=== PATIENT | male | born 1945 | race Caucasian/White ===

== ENCOUNTER 2019-09-09 17:08 | Inpatient (IN) | payer MEDICARE ==
[2019-09-09 17:32] LABS: Glucose,Whole Blood 278 mg/dL (75-99)
--- NOTE | 2019-09-09 17:39 | ED ---
General Adult HPI - General Chief complaint: Cardiac Arrest/CPR Stated complaint: cardiac arrest Time Seen by Provider: 09/09/19 17:12 Source: EMS, RN notes reviewed, old records reviewed Mode of arrival: EMS Limitations: altered mental status - History of Present Illness Initial comments: 74-year-old male presenting in cardiac arrest. This was an unwitnessed arrest at home. Patient was last seen well at approximately 1400, at 1410 EMS was called. He had return of spontaneous circulation at a approximately 1420. Currently awaiting EMS run sheets. He had normal sinus rhythm with stable blood pressure during transport for approximately 30 minutes. He did have a second PEA arrest just prior to arrival. Total cardiac arrest time was between 30 and 40 minutes. Patient has history of coronary artery disease status post bypass grafting, history of end-stage renal disease. Most recently receive hemodialysis yesterday. He had been in his usual state of health just prior to his cardiac arrest. No complaints according to his . He had stepped outside to feed the birds. - Related Data Allergies Allergy/AdvReac Type Severity Reaction Status Date / Time Unable to Assess Allergy Verified 09/09/19 17:38 Review of Systems ROS Statement: Those systems with pertinent positive or pertinent negative responses have been documented in the HPI. ROS Other: All systems not noted in ROS Statement are negative. Past Medical History Past Medical History: Unable to Obtain, Dialysis Past Surgical History: Unable to Obtain Smoking Status: Unknown if ever smoked Past Alcohol Use History: Unable to Obtain Past Drug Use History: Unable to Obtain General Exam Limitations: altered mental status General appearance: obtunded Head exam: Present: atraumatic, normocephalic Eye exam: Absent: PERRL (Pupils are 5 mm bilaterally, minimally reactive, no corneal reflex.) Neck exam: Present: normal inspection. Absent: tenderness (Sluggish bilaterally) Respiratory exam: Present: respiratory distress, rales, other (With the vent., Patient has bilateral breath sounds) Cardiovascular Exam: Present: regular rate, irregular rhythm GI/Abdominal exam: Present: soft, distended. Absent: tenderness, guarding Extremities exam: Present: pedal edema Skin exam: Present: warm, dry, intact. Absent: cyanosis, diaphoretic Course Vital Signs 09/09/19 17:08 Pulse Rate 76 Respiratory 18 Rate Blood Pressure 130/70 O2 Sat by Pulse 97 Oximetry EKG Findings - EKG Comments: EKG Findings:: EKG: Atrial fibrillation, bifascicular block, wide-complex rate of 65, QRS duration 156, QTC 497, no ST segment elevation. Medical Decision Making - Medical Decision Making 74-year-old male in PEA arrest, resuscitated by EMS, intubated by EMS. Patient has pulses upon arrival with stable blood pressure. He has bilateral breath sounds with BVM. He is placed on the ventilator. Patient evaluated by Dr. Washington in the emergency department and was able to place a central line in this patient. Chest x-ray shows satisfactory placement of both OG tube, central line, and endotracheal tube. Laboratory testing reveals white blood cell count of 20, hemoglobin is 11.3, there is no baseline laboratory studies for comparison. He has evidence of renal failure and is currently on hemodialysis. His potassium is only minimally elevated at 5.3. He does require some sedation in the emergency department and is placed on proper fall. Armendariz catheter was placed as I am uncertain if this patient still makes urine. Patient will be continued on the ventilator, admitted to the ICU. Cardiopulmonary arrest, PEA arrest, with return of spontaneous circulation, in this patient with multiple medical problems coronary artery disease, end-stage renal disease on hemodialysis. - Lab Data Result diagrams: 09/09/19 17:36 09/09/19 17:36 Lab Results 09/09/19 09/09/19 09/09/19 Range/Units 17:28 17:36 17:36 WBC 20.0 H (3.8-10.6) k/uL RBC 3.26 L (4.30-5.90) m/uL Hgb 11.3 L (13.0-17.5) gm/dL Hct 35.1 L (39.0-53.0) % MCV 107.5 H (80.0-100.0) fL MCH 34.6 (25.0-35.0) pg MCHC 32.2 (31.0-37.0) g/dL RDW 14.2 (11.5-15.5) % Plt Count 183 (150-450) k/uL Neutrophils % 72 % Lymphocytes % 21 % Monocytes % 4 % Eosinophils % 1 % Basophils % 0 % Neutrophils # 14.4 H (1.3-7.7) k/uL Lymphocytes # 4.2 (1.0-4.8) k/uL Monocytes # 0.7 (0-1.0) k/uL Eosinophils # 0.2 (0-0.7) k/uL Basophils # 0.1 (0-0.2) k/uL Macrocytosis Moderate PT 10.9 (9.0-12.0) sec INR 1.1 (<1.2) APTT 22.4 (22.0-30.0) sec Sample Site ABG pH (7.35-7.45) ABG pCO2 (35-45) mmHg ABG pO2 (83-108) mmHg ABG HCO3 (21-25) mmol/L ABG Total CO2 (19-24) mmol/L ABG O2 Saturation (94-97) % ABG Base Excess mmol/L Ken Test FiO2 % Sodium (137-145) mmol/L Potassium (3.5-5.1) mmol/L Chloride (98-107) mmol/L Carbon Dioxide (22-30) mmol/L Anion Gap mmol/L BUN (9-20) mg/dL Creatinine (0.66-1.25) mg/dL Est GFR (CKD-EPI)AfAm (>60 ml/min/1.73 sqM) Est GFR (CKD-EPI)NonAf (>60 ml/min/1.73 sqM) Glucose (74-99) mg/dL POC Glucose (mg/dL) 278 H (75-99) mg/dL POC Glu Wire Walker ID Vivian Dejesus Calcium (8.4-10.2) mg/dL Magnesium (1.6-2.3) mg/dL Total Bilirubin (0.2-1.3) mg/dL AST (17-59) U/L ALT (4-49) U/L Alkaline Phosphatase (38-126) U/L Troponin I (0.000-0.034) ng/mL NT-Pro-B Natriuret Pep pg/mL Total Protein (6.3-8.2) g/dL Albumin (3.5-5.0) g/dL 09/09/19 09/09/19 09/09/19 Range/Units 17:36 17:36 17:36 WBC (3.8-10.6) k/uL RBC (4.30-5.90) m/uL Hgb (13.0-17.5) gm/dL Hct (39.0-53.0) % MCV (80.0-100.0) fL MCH (25.0-35.0) pg MCHC (31.0-37.0) g/dL RDW (11.5-15.5) % Plt Count (150-450) k/uL Neutrophils % % Lymphocytes % % Monocytes % % Eosinophils % % Basophils % % Neutrophils # (1.3-7.7) k/uL Lymphocytes # (1.0-4.8) k/uL Monocytes # (0-1.0) k/uL Eosinophils # (0-0.7) k/uL Basophils # (0-0.2) k/uL Macrocytosis PT (9.0-12.0) sec INR (<1.2) APTT (22.0-30.0) sec Sample Site ABG pH (7.35-7.45) ABG pCO2 (35-45) mmHg ABG pO2 (83-108) mmHg ABG HCO3 (21-25) mmol/L ABG Total CO2 (19-24) mmol/L ABG O2 Saturation (94-97) % ABG Base Excess mmol/L Ken Test FiO2 % Sodium 136 L (137-145) mmol/L Potassium 5.3 H (3.5-5.1) mmol/L Chloride 98 (98-107) mmol/L Carbon Dioxide 18 L (22-30) mmol/L Anion Gap 20 mmol/L BUN 43 H (9-20) mg/dL Creatinine 5.04 H (0.66-1.25) mg/dL Est GFR (CKD-EPI)AfAm 12 (>60 ml/min/1.73 sqM) Est GFR (CKD-EPI)NonAf 11 (>60 ml/min/1.73 sqM) Glucose 297 H (74-99) mg/dL POC Glucose (mg/dL) (75-99) mg/dL POC Glu Wire Walker ID Calcium 8.5 (8.4-10.2) mg/dL Magnesium 3.0 H (1.6-2.3) mg/dL Total Bilirubin 0.4 (0.2-1.3) mg/dL AST 279 H (17-59) U/L ALT 235 H (4-49) U/L Alkaline Phosphatase 150 H (38-126) U/L Troponin I 0.075 H* (0.000-0.034) ng/mL NT-Pro-B Natriuret Pep 8830 pg/mL Total Protein 5.8 L (6.3-8.2) g/dL Albumin 3.4 L (3.5-5.0) g/dL 09/09/19 Range/Units 17:56 WBC (3.8-10.6) k/uL RBC (4.30-5.90) m/uL Hgb (13.0-17.5) gm/dL Hct (39.0-53.0) % MCV (80.0-100.0) fL MCH (25.0-35.0) pg MCHC (31.0-37.0) g/dL RDW (11.5-15.5) % Plt Count (150-450) k/uL Neutrophils % % Lymphocytes % % Monocytes % % Eosinophils % % Basophils % % Neutrophils # (1.3-7.7) k/uL Lymphocytes # (1.0-4.8) k/uL Monocytes # (0-1.0) k/uL Eosinophils # (0-0.7) k/uL Basophils # (0-0.2) k/uL Macrocytosis PT (9.0-12.0) sec INR (<1.2) APTT (22.0-30.0) sec Sample Site rfem ABG pH 7.29 L (7.35-7.45) ABG pCO2 41 (35-45) mmHg ABG pO2 347 H (83-108) mmHg ABG HCO3 19 L (21-25) mmol/L ABG Total CO2 21 (19-24) mmol/L ABG O2 Saturation 100.0 H (94-97) % ABG Base Excess -7.4 mmol/L Ken Test Yes FiO2 100 % Sodium (137-145) mmol/L Potassium (3.5-5.1) mmol/L Chloride (98-107) mmol/L Carbon Dioxide (22-30) mmol/L Anion Gap mmol/L BUN (9-20) mg/dL Creatinine (0.66-1.25) mg/dL Est GFR (CKD-EPI)AfAm (>60 ml/min/1.73 sqM) Est GFR (CKD-EPI)NonAf (>60 ml/min/1.73 sqM) Glucose (74-99) mg/dL POC Glucose (mg/dL) (75-99) mg/dL POC Glu Wire Walker ID Calcium (8.4-10.2) mg/dL Magnesium (1.6-2.3) mg/dL Total Bilirubin (0.2-1.3) mg/dL AST (17-59) U/L ALT (4-49) U/L Alkaline Phosphatase (38-126) U/L Troponin I (0.000-0.034) ng/mL NT-Pro-B Natriuret Pep pg/mL Total Protein (6.3-8.2) g/dL Albumin (3.5-5.0) g/dL Critical Care Time Critical Care Time: Yes Total Critical Care Time: 35 Disposition Clinical Impression: Cardiac arrest, Signs of return of spontaneous circulation Disposition: ADMITTED IP TO THIS [facility] Condition: Critical Is patient prescribed a controlled substance at d/c from ED?: No Referrals: Mohsen Pearson MD [Primary Care Provider] - 1-2 days Decision to Admit Reason: Admit from EC Decision Date: 09/09/19 Decision Time: 18:16
[2019-09-09] MEDS ORDERED: NALOXONE 0.4 MG/ML 1 ML VIAL IV PRN (17:40)
[2019-09-09 17:45] LABS: Basophils # (A) 0.1 k/uL (0-0.2); Basophils % (A) 0 %; Eosinophils # (A) 0.2 k/uL (0-0.7); Eosinophils % (A) 1 %; HCT 35.1 % (39.0-53.0); HGB 11.3 gm/dL (13.0-17.5); Lymphocytes # (A) 4.2 k/uL (1.0-4.8); Lymphocytes % (A) 21 %; MCH 34.6 pg (25.0-35.0); MCHC 32.2 g/dL (31.0-37.0); MCV 107.5 fL (80.0-100.0); Macrocytosis Moderate; Mean Platelet Volume 8.1; Monocytes # (A) 0.7 k/uL (0-1.0); Monocytes % (A) 4 %; Neutrophils # (A) 14.4 k/uL (1.3-7.7); Neutrophils % (A) 72 %; Platelet Count 183 k/uL (150-450); RBC 3.26 m/uL (4.30-5.90); RDW 14.2 % (11.5-15.5)
[2019-09-09 17:53] LABS: INR 1.1 (<1.2); Partial Thromboplastin Time 22.4 sec (22.0-30.0); Prothrombin Time 10.9 sec (9.0-12.0)
[2019-09-09 18:07] LABS: Albumin 3.4 g/dL (3.5-5.0); Calcium 8.5 mg/dL (8.4-10.2); Potassium 5.3 mmol/L (3.5-5.1); Total Bilirubin 0.4 mg/dL (0.2-1.3); Total Protein 5.8 g/dL (6.3-8.2)
[2019-09-09 18:13] LABS: ABG Base Excess -7.4 mmol/L; ABG HCO3 19 mmol/L (21-25); ABG PCO2 41 mmHg (35-45); ABG PH 7.29 (7.35-7.45); ABG PO2 347 mmHg (83-108); ABG TCO2 21 mmol/L (19-24); Allen Test Performed? Yes
--- NOTE | 2019-09-09 18:15 | XR ---
EXAMINATION TYPE: XR chest 1V portable DATE OF EXAM: 09/09/2019 COMPARISON: None HISTORY: Cardiac arrest TECHNIQUE: FINDINGS: Endotracheal tube is 4.5 cm from the maikel. There is nasogastric tube looped in the stomac h. There is no gross heart failure. There are sternal wires. There is right central venous catheter w ith the tip in the right atrium. No pneumothorax. There are chest leads. IMPRESSION: No active cardiopulmonary disease.
[2019-09-09] MEDS ORDERED: PROPOFOL 1,000 MG in EMPTY BAG 1 BAG IV ONE (18:18)
[2019-09-09] MEDS ORDERED: ASPIRIN 300 MG SUPP RECTAL STA (18:24)
[2019-09-09] MEDS ORDERED: LORazepam 2 MG/ML INJ ONE (18:31)
[2019-09-09] MEDS ORDERED: LORazepam 2 MG/ML INJ IV STA (18:32)
--- NOTE | 2019-09-09 18:48 | P.CNPUL ---
History of Present Illness Consult date: 09/09/19 Chief complaint: Cardiac arrests History of present illness: 74-year-old male patient who receives most of his care through [facility]. The patient is not known to us and he has never been hospitalized in our hospital. The patient was last seen by his this afternoon at around 1400 and he was also getting the birds for around 10-15 minutes when she noticed that he he was not around. She went on then she found the patient unresponsive. She called EMS. The initial downtime was estimated to be around 15 minutes when EMS came in and CPR was initiated. The patient was found to be deep. Pulse was resumed and the patient was intubated. The patient maintained his pulse for around 30 minutes. On route, he lost pulses for another 10 minutes and ultimately see arrived to our emergency department while receiving the Elton as. He was down by additional 2 minutes. Now emergency where pulses were recovered and the Eder was removed. The patient currently is completely unresponsive. He is intubated on a mechanical ventilator. He is maintaining his blood pressure without any pressors. He is on assist control mode at the rate of 18 with a tidal volume of 500 and FiO2 of 50% with a PEEP of 5. The blood gas showed a pH of 7.28 with a pCO2 of 40 and pO2 of 147. This was done approximately an hour after it without JVD. The triple-lumen catheter was established. He remains on Lasix, the patient is in renal failure however the patient is on dialysis. ProBNP level is elevated. Chest x-ray shows cardiomegaly without any acute abnormalities. The triple-lumen catheter is in a good location. ET tube is in a location. Within 45 minutes to an hour, the patient started biting on the tissue. He was started on propofol in the emergency department. The patient had a white cell count of 20.0. Hemoglobin was 11.3. The sodium is 136 and a potassium level of 5.3. Serum bicarb is 18. BUN is 43 with a creatinine of 5.04. Glucose for now is to do 97. AST is 279 ALT is 235 troponin is a 0.075 with a proBNP level of 8830. EKG shows atrial fibrillation with occasional PVCs. His rate is currently in the mid 70s. His most recent blood pressure is 105/67. Upon inspection, the patient has a access in his left upper extremity. I wasn't able to obtain any falls or any heave or thrill in the left upper extremity. I elected discussion with the family. Based on the reported history, the patient has multiple medical problems and comorbidities. He is known to have coronary artery disease and he is undergone a previous bypass surgery. This was done in an outside hospital. He is known to have coronary artery disease. He also is diabetic. He developed chronic kidney disease and approximately 8 mo nths ago he was started on hemodialysis through an AV fistula in his left upper extremity. He gets dialyzed 3 times a week MWF. He also has COPD, hypertension, hyperlipidemia and history of severe cardiomyopathy. His underlying ejection fraction is not known. He does not have a defibrillator or pacemaker in place. Armendariz catheter is in place. No urine output for now. The medication is unknown. The family does not have a medication list brought with them. Review of Systems ROS unobtainable: due to endotracheal tube Past Medical History Past Medical History: Unable to Obtain, Coronary Artery Disease (CAD) ( coronary artery bypass surgery), Heart Failure, COPD, Diabetes Mellitus, Dialysis (since 11/2018), Hyperlipidemia, Hypertension, Myocardial Infarction ([place]) (2004) Past Surgical History: Unable to Obtain, Coronary Bypass/CABG Additional Past Surgical History / Comment(s): AV fistula in the LUE, lower spine surgery Smoking Status: Unknown if ever smoked Past Alcohol Use History: Unable to Obtain Past Drug Use History: Unable to Obtain Medications and Allergies Allergies Allergy/AdvReac Type Severity Reaction Status Date / Time Unable to Assess Allergy Verified 09/09/19 17:38 Physical Exam Vitals: Vital Signs Pulse Resp BP Pulse Ox 09/09/19 17:08 76 18 130/70 97 Intake and Output 09/09/19 09/09/19 09/09/19 06:59 14:59 22:59 Other: Weight 113.398 kg Unresponsive, calm and comfortable intubated on a mechanical ventilator. Orogastric and orotracheal tube are both in place. Head exam was generally normal. There was no scleral icterus or corneal arcus. Mucous membranes were moist. Neck was supple and without jugular venous distension, thyromegaly, or carotid bruits. Carotids were easily palpable bilaterally. There was no adenopathy. Lungs sounds are diminished and the patient has scattered expiratory wheezes heard bilaterally. Scattered rhonchi also present. Heart sounds are irregular, positive S1-S2 and no significant murmurs could be appreciated. The patient has a sternotomy scar over the anterior chest area. Abdominal exam revealed normal bowel sounds. The abdomen was soft, non-tender, and without masses, organomegaly, or appreciable enlargement of the abdominal aorta. Extremities the patient has a nonfunctioning dialysis access in left upper extremity. No pulsatile be appreciated. Pulses in the lower extremities are also diminished by mouth femoral pulses are well palpated. No cyanosis. No clubbing. Neurologically, the patient has acute was regular and equal and symmetrical around 4-5 mm. Sluggish reactive to light. No nystagmus. No clonus. No facial asymmetry. Unresponsive to deep painful stimulation. For now he is breathing above the vent. He does have a very mild gag reflex when the tube was manipulated. No Babinski. No clonus. Motor function cannot be assessed. Has a function cannot be assessed. Examination of the skin revealed no evidence of significant rashes, suspicious appearing nevi or other concerning lesions. Results - Laboratory Findings CBC and BMP: 09/09/19 17:36 PT/INR, D-dimer PT 10.9 sec (9.0-12.0) 09/09/19 17:36 INR 1.1 (<1.2) 09/09/19 17:36 Abnormal lab findings: Abnormal Labs 09/09/19 09/09/19 17:28 17:36 WBC 20.0 H RBC 3.26 L Hgb 11.3 L Hct 35.1 L MCV 107.5 H Neutrophils # 14.4 H POC Glucose (mg/dL) 278 H - Diagnostic Findings Chest x-ray: image reviewed Assessment and Plan Plan: 1 cardiac arrest with prolonged downtime estimated to be around 30 minutes or more. The patient was a PEA. He was resuscitated. He received CPR. I have not had any access to the EMS run sheet. Upon arrival to the emergency department, the patient received a brief CPR and resuscitation and subsequently there was return of spontaneous circulation. Currently intubated on a mechanical ventilator. Unresponsive. Hemodynamically he is maintaining his own blood pressure without the use of any pressors. 2 acute hypoxic respiratory failure secondary to above currently intubated on a mechanical ventilator 3 unresponsive with a possibility of hypoxic encephalopathy post cardiac arrest 4 atrial fibrillation with a controlled rate 5 known history of coronary artery disease with previous bypass surgery 6 systolic heart failure with a unknown ejection fraction. 7 End stage renal disease on hemodialysis a times a week MWF. The axis in the left upper extremity is no function of this point in time. 8 COPD 9 diabetes mellitus 10 obesity with a BMI of 38 11 hypertension 12 hyperlipidemia 13 leukocytosis likely reactive 14 abnormal liver function tests Plan Keep the patient sedated for now. During his treatment in the emergency department the patient started getting more a sick visit a mechanical ventilator and biting on this unit. For that reason he was started on propofol and the dose being titrated and currently is up to 40 g. Monitor hemodynamics and the triple-lumen catheter was inserted Continue vent support and the necessity ventilator changes were done. Due to asynchrony, we'll put the patient on IV sick less motivated today rate of 24 with a tidal volume of 500 with an FiO2 of 50% and a PEEP of 5. Start the patient on DuoNeb nebulized treatments around the clock Start the patient IV fluids normal saline at rate of 50 mL an hour Monitor cardiac enzymes with troponin every 8 hours 3 Echocardiogram to assess LV function 12-lead EKG Obtain a CAT scan of the brain no contrast, if negative start the patient IV heparin Cardiology consultation Nephrology consultation Neurology consultation EEG in a.m. Insulin sliding scale coverage IV Protonix Prognosis poor. There are signs of hypoxic encephalopathy for now. We are asked the patient's family to bring in the medication list. Would also try to get records from his other hospitals maintaining his health in general Prognosis is poor baseline above-mentioned comorbidities. This is a critically care evaluation. The patient was transferred to the intensive care unit. Interviewed the family. Evaluation was done and the nurse department. Triple- lumen catheter was also inserted in the ED. Time with Patient: Greater than 30
[2019-09-09] MEDS: SODIUM CHLORIDE 0.9% 1,000 ML IV SCH (19:35)
--- NOTE | 2019-09-09 19:49 | CT ---
EXAMINATION TYPE: CT brain wo con DATE OF EXAM: 09/09/2019 COMPARISON: None HISTORY: Unresponsive CT DLP: 1172.4 mGycm Automated exposure control for dose reduction was used. Ventricles have normal size. There is no mass effect nor midline shift. There is no sign of intracran ial hemorrhage. The calvarium is intact. IMPRESSION: Negative CT scan of the brain.
[2019-09-09 21:03] LABS: Glucose,Whole Blood 221 mg/dL (75-99)
[2019-09-09] MEDS: INSULIN ASPART (NovoLOG) 100 UNIT/ML VIAL SQ SCH (21:28)
[2019-09-09] MEDS: IPRATROPIUM-ALBUTEROL 3 ML NEB INHALATION SCH ×2 (21:37→23:56)
[2019-09-09] MEDS: PANTOPRAZOLE 40 MG/10 ML VIAL IVP SCH (21:50)
--- NOTE | 2019-09-09 22:28 | P.HPIM ---
History of Present Illness H&P Date: 09/09/19 The patient is a 74-year-old male with a PMH of coronary artery disease status post CABG, CHF, ESRD on hemodialysis, type 2 diabetes mellitus, hypertension, and hyperlipidemia who was brought into the ED via EMS for cardiac arrest. History obtained from chart. Reportedly, the patient was last seen by his , feeding birds at around 2 PM. She has only found him at around 2:10 PM, unresponsive and on the ground. She activated EMS, who arrived on the scene and initiated CPR at around 2:15 PM with subsequent ROSC around 2:20 pm. The patient was intubated by EMS. The patient then had normal pulse for ~30 minutes though en route to the ED, suffered another cardiac arrest with PEA, with subsequent ROSC with CPR. Total down-time reported as 30-40 minutes. The patient underwent an extensive evaluation in the emergency room, EKG showing A. fib with bifascicular block at 65 bpm. Chest x-ray was unremarkable. Brain CT also was unremarkable. Laboratory evaluation revealed a WBC count of 20, hemoglobin 11.3, troponin 0.075, BNP 8830, AST 279, AST 235, alkaline phosphatase 150, sodium 136, potassium 5.3, BUN 43, creatinine 5.4. The patient was given aspirin and was started on heparin infusion. He was also given IV Zosyn empirically. He is admitted to the MICU for further management. Review of Systems ROS unobtainable: due to endotracheal tube, due to mental status Past Medical History Past Medical History: Unable to Obtain, Coronary Artery Disease (CAD) ( coronary artery bypass surgery), Heart Failure, COPD, Diabetes Mellitus, Dialysis (since 11/2018), Hyperlipidemia, Hypertension, Myocardial Infarction ([place]) (2004) Past Surgical History: Unable to Obtain, Coronary Bypass/CABG Additional Past Surgical History / Comment(s): AV fistula in the LUE, lower spine surgery Smoking Status: Unknown if ever smoked Past Alcohol Use History: Unable to Obtain Past Drug Use History: Unable to Obtain Medications and Allergies Allergies Allergy/AdvReac Type Severity Reaction Status Date / Time Unable to Assess Allergy Verified 09/09/19 17:38 Physical Exam Vitals: Vital Signs Temp Pulse Resp BP Pulse Ox 09/09/19 21:50 64 09/09/19 21:40 64 09/09/19 21:02 69 24 122/95 98 09/09/19 19:45 67 18 102/54 98 09/09/19 19:35 93.4 F L 63 20 106/60 99 09/09/19 19:25 68 18 100/59 100 09/09/19 19:20 68 18 99/55 100 09/09/19 19:17 68 20 99/55 100 09/09/19 19:10 67 18 69/47 100 09/09/19 18:55 73 20 89/48 100 09/09/19 18:50 73 20 83/54 100 09/09/19 18:45 73 18 92/57 100 09/09/19 18:35 74 20 116/65 100 09/09/19 18:20 75 20 110/64 100 09/09/19 18:05 83 20 99/60 100 09/09/19 17:08 76 18 130/70 97 Intake and Output 09/09/19 09/09/19 09/09/19 06:59 14:59 22:59 Intake Total 14.175 Balance 14.175 Intake: Intake, IV Titration 14.175 Amount Propofol 1,000 mg In 14.175 Empty Bag 1 bag @ Titrate IV .Q0M ONE Rx#: [id number] Other: Weight 113.398 kg General: Intubated male, no distress, appears at stated age, obese Derm: no unusual rashes/lesions no unusual ecchymoses, warm, dry Head: atraumatic, normocephalic, symmetric Eyes: EOMI, anicteric sclera, cataracts chiquita, pupils equal round reactive to light ENT: Nose and ears atraumatic, ET tube in place, NG tube in place Neck: No thyromegaly, no cervical lymphadenopathy, trachea midline, supple Mouth: no lip lesion, mucus membranes moist Cardiovascular: S1S2 reg, no murmur, positive posterior tibial pulse bilateral, no edema, capillary refill less than 2 seconds Lungs: No wheezing, rales, or rhonchi appreciated bilaterally Abdominal: soft, nondistended Ext: no gross muscle atrophy, no contractures, Neuro: Unresponsive to noxious stimuli Results CBC & Chem 7: 09/09/19 17:36 09/09/19 17:36 Labs: Abnormal Lab Results - Last 24 Hours (Table) 09/09/19 09/09/19 09/09/19 Range/Units 17:28 17:36 17:36 WBC 20.0 H (3.8-10.6) k/uL RBC 3.26 L (4.30-5.90) m/uL Hgb 11.3 L (13.0-17.5) gm/dL Hct 35.1 L (39.0-53.0) % MCV 107.5 H (80.0-100.0) fL Neutrophils # 14.4 H (1.3-7.7) k/uL ABG pH (7.35-7.45) ABG pO2 (83-108) mmHg ABG HCO3 (21-25) mmol/L ABG O2 Saturation (94-97) % Sodium 136 L (137-145) mmol/L Potassium 5.3 H (3.5-5.1) mmol/L Carbon Dioxide 18 L (22-30) mmol/L BUN 43 H (9-20) mg/dL Creatinine 5.04 H (0.66-1.25) mg/dL Glucose 297 H (74-99) mg/dL POC Glucose (mg/dL) 278 H (75-99) mg/dL Magnesium 3.0 H (1.6-2.3) mg/dL AST 279 H (17-59) U/L ALT 235 H (4-49) U/L Alkaline Phosphatase 150 H (38-126) U/L Troponin I (0.000-0.034) ng/mL Total Protein 5.8 L (6.3-8.2) g/dL Albumin 3.4 L (3.5-5.0) g/dL 09/09/19 09/09/19 09/09/19 Range/Units 17:36 17:56 21:03 WBC (3.8-10.6) k/uL RBC (4.30-5.90) m/uL Hgb (13.0-17.5) gm/dL Hct (39.0-53.0) % MCV (80.0-100.0) fL Neutrophils # (1.3-7.7) k/uL ABG pH 7.29 L (7.35-7.45) ABG pO2 347 H (83-108) mmHg ABG HCO3 19 L (21-25) mmol/L ABG O2 Saturation 100.0 H (94-97) % Sodium (137-145) mmol/L Potassium (3.5-5.1) mmol/L Carbon Dioxide (22-30) mmol/L BUN (9-20) mg/dL Creatinine (0.66-1.25) mg/dL Glucose (74-99) mg/dL POC Glucose (mg/dL) 221 H (75-99) mg/dL Magnesium (1.6-2.3) mg/dL AST (17-59) U/L ALT (4-49) U/L Alkaline Phosphatase (38-126) U/L Troponin I 0.075 H* (0.000-0.034) ng/mL Total Protein (6.3-8.2) g/dL Albumin (3.5-5.0) g/dL Assessment and Plan Plan: Cardiac arrest in setting of history of CAD status post CABG with CHF -Continue with postarrest protocol with hypothermia -Trend troponin -Cardiac monitoring -Echocardiogram -Cardiology consult -Continue with heparin and aspirin -Continue with mechanical ventilation with the ventilator bundle -Obtain lactic acid Hyperkalemia -Pt w/ ESRD -1 gm Ca-gluconate ordered -Monitor BMP Leukocytosis -No signs of active infection at this time -Monitor for now -Likely due to acute stress ESRD on hemodialysis -Nephrology consulted for resumption of dialysis Transaminitis -Likely due to acute liver injury from hypoperfusion -Monitor LFTs
[2019-09-09] MEDS ORDERED: CALCIUM GLUCONATE 1 GM in SODIUM CHLORIDE 0.9% 100 ML IVPB ONE (22:35)
[2019-09-09] MEDS: PROPOFOL 1,000 MG in EMPTY BAG 1 BAG IV SCH (22:44)
[2019-09-09] MEDS: PIPERACILLIN-TAZOBACTAM 3.375 GM in SODIUM CHLORIDE 0.9% 100 ML IVPB SCH (22:45)
[2019-09-09] MEDS: HEPARIN SOD,PORK IN 0.45% NACL 25,000 UNIT in 0.45% NACL 1 250ML.BAG IV SCH (22:50)
[2019-09-10] MEDS: INSULIN ASPART (NovoLOG) 100 UNIT/ML VIAL SQ SCH ×2 (00:21→03:50)
[2019-09-10] MEDS: PROPOFOL 1,000 MG in EMPTY BAG 1 BAG IV SCH ×2 (01:05→06:47)
[2019-09-10] MEDS ORDERED: SODIUM CHLORIDE 0.9% 1,000 ML IV ONE ×2 (03:09→03:12)
[2019-09-10] MEDS ORDERED: VANCOMYCIN IV PER PHARMACY 1 EACH MISC MISCELLANE PRN (03:13)
[2019-09-10] MEDS: IPRATROPIUM-ALBUTEROL 3 ML NEB INHALATION SCH ×6 (03:24→22:58)
[2019-09-10 03:52] LABS: Glucose,Whole Blood 288 mg/dL (75-99)
[2019-09-10] MEDS ORDERED: VANCOMYCIN 1,750 MG in SODIUM CHLORIDE 0.9% 500 ML 500 ML IVPB ONE (04:00)
[2019-09-10 05:04] LABS: HCT 35.5 % (39.0-53.0); HGB 11.6 gm/dL (13.0-17.5); MCH 34.1 pg (25.0-35.0); MCHC 32.8 g/dL (31.0-37.0); MCV 103.9 fL (80.0-100.0); Macrocytosis Slight; Mean Platelet Volume 8.2; Platelet Count 198 k/uL (150-450); RBC 3.41 m/uL (4.30-5.90); RDW 14.2 % (11.5-15.5); WBC 26.8 k/uL (3.8-10.6)
[2019-09-10 05:13] LABS: ABG Base Excess -7.9 mmol/L; ABG HCO3 17 mmol/L (21-25); ABG Oxygen Saturation 99.8 % (94-97); ABG PCO2 27 mmHg (35-45); ABG PO2 143 mmHg (83-108); ABG TCO2 18 mmol/L (19-24); Allen Test Performed? Yes
[2019-09-10 05:46] LABS: Calcium 8.7 mg/dL (8.4-10.2); Potassium 5.7 mmol/L (3.5-5.1)
--- NOTE | 2019-09-10 07:40 | XR ---
EXAMINATION TYPE: XR chest 1V portable DATE OF EXAM: 09/10/2019 CLINICAL HISTORY: Difficulty breathing progress study. Cardiac arrest. TECHNIQUE: Single AP portable semiupright view of the chest is obtained. COMPARISON: Chest x-ray from one day earlier . FINDINGS: Stable endotracheal, orogastric tube, and right subclavian central venous catheter. [place] ing sternal wires and mediastinal clips redemonstrated. Persistent cardiomegaly. Improved inspiration on current study. Suspect persistent small right pleura l effusion and patchy right medial basilar acute atelectasis and/or infiltrate. Osseous structures ar e intact. There are overlying EKG leads redemonstrated. IMPRESSION: Improved inspiration and left hilar opacity. Persistent cardiomegaly with small right ple ural effusion and patchy right medial basilar acute atelectasis and/or infiltrate.
[2019-09-10 08:21] LABS: Glucose,Whole Blood 422 mg/dL (75-99)
--- NOTE | 2019-09-10 08:53 | P.PN ---
Subjective Progress Note Date: 09/10/19 74-year-old male patient who receives most of his care through [facility]. The patient is not known to us and he has never been hospitalized in our hospital. The patient was last seen by his this afternoon at around 1400 and he was also getting the birds for around 10-15 minutes when she noticed that he he was not around. She went on then she found the patient unresponsive. She called EMS. The initial downtime was estimated to be around 15 minutes when EMS came in and CPR was initiated. The patient was found to be deep. Pulse was resumed and the patient was intubated. The patient maintained his pulse for around 30 minutes. On route, he lost pulses for another 10 minutes and ultimately see arrived to our emergency department while receiving the Eder. He was down by additional 2 minutes. Now emergency where pulses were recovered and the Eder was removed. The patient currently is completely unresponsive. He is intubated on a mechanical ventilator. He is maintaining his blood pressure without any pressors. He is on assist control mode at the rate of 18 with a tidal volume of 500 and FiO2 of 50% with a PEEP of 5. The blood gas showed a pH of 7.28 with a pCO2 of 40 and pO2 of 147. This was done approximately an hour after it without JVD. The triple-lumen catheter was established. He remains on Lasix, the patient is in renal failure however the patient is on dialysis. ProBNP level is elevated. Chest x-ray shows cardiomegaly without any acute abnormalities. The triple-lumen catheter is in a good location. ET tube is in a location. Within 45 minutes to an hour, the patient started biting on the tissue. He was started on propofol in the emerg ency department. The patient had a white cell count of 20.0. Hemoglobin was 11.3. The sodium is 136 and a potassium level of 5.3. Serum bicarb is 18. BUN is 43 with a creatinine of 5.04. Glucose for now is to do 97. AST is 279 ALT is 235 troponin is a 0.075 with a proBNP level of 8830. EKG shows atrial fibrillation with occasional PVCs. His rate is currently in the mid 70s. His most recent blood pressure is 105/67. Upon inspection, the patient has a access in his left upper extremity. I wasn't able to obtain any falls or any heave or thrill in the left upper extremity. I elected discussion with the family. Based on the reported history, the patient has multiple medical problems and comorbidities. He is known to have coronary artery disease and he is undergone a previous bypass surgery. This was done in an outside hospital. He is known to have coronary artery disease. He also is diabetic. He developed chronic kidney disease and approximately 8 months ago he was started on hemodialysis through an AV fistula in his left upper extremity. He gets dialyzed 3 times a week MWF. He also has COPD, hypertension, hyperlipidemia and history of severe cardiomyopathy. His u nderlying ejection fraction is not known. He does not have a defibrillator or pacemaker in place. Armendariz catheter is in place. No urine output for now. The medication is unknown. The family does not have a medication list brought with them. On 09/10/2019 and seeing this patient for a follow-up. The patient as mentioned earlier his post cardiac arrest. This morning, he is on propofol. The port was being titrated for synchrony with the mechanical ventilator as the patient was becoming asynchronous and he was walking and the tissue. He remains unresponsive. Not responding to any deep painful stimulation. Is was sedated for now. Initial CAT scan of the brain was negative. No seizure activity has been noted. No neck stiffness. In terms of respiratory support, the patient remains on a mechanical ventilator. He remains assist control mode at the rate of 18 with a tidal volume of 500 and FiO2 of 40% with a PEEP of 5. Blood gases showed a pH of 7.4 with a pCO2 of 27 and pO2 of 143. Chest x-ray from today shows some limited infiltration of the right lung base. Tubes are in good location. No significant orotracheal secretions. White cell count is up to 26.8. He has having some ongoing lactic acidosis. Lactic acid was 5.2 and earlier this morning. 0.0. He is being gently hydrated knowing that he has no urine output and the patient is on dialysis without any dialysis port or sites that is functional at this point. He was given a bolus of 1 L he is given antibiotic coverage including a combination of Zosyn and a dose of vancomycin will also given yesterday. No urine output as stated. Troponin peaked at 3.5 and the patient remains on IV heparin. No further cardiac arrhythmias and his rhythm currently is sinus. He is on no pressors. He is maintaining his own blood pressure for now without any hemodynamic support. No fever. He did have some loose diarrhea yesterday and a fecal management system was inserted and currently is not having any significant stool output and the diarrhea has subsided. NG tube in place. Further workup is pending for now. Objective - Vital Signs Vital signs: Vital Signs Temp 98.6 F 09/10/19 04:00 Pulse 67 09/10/19 08:00 Resp 24 09/10/19 08:00 BP 144/56 09/10/19 08:00 Pulse Ox 99 09/10/19 08:00 Intake & Output 09/09/19 09/10/19 09/10/19 18:59 06:59 18:59 Intake Total 1.928 2883.484 50 Output Total 0 0 Balance 1.928 2883.484 50 Weight 113.398 kg 110.3 kg Intake: IV 2701 50 Calcium Gluconate 1 gm In 100 Sodium Chloride 0.9% 100 ml @ 100 mls/hr IVPB ONCE ONE Rx#:[id number] Piperacillin-Tazobactam 3 100 .375 gm In Sodium Chloride 0.9% 100 ml @ 25 mls/hr IVPB Q12H [facility] Rx# :[id number] Sodium Chloride 0.9% 1, 500 50 000 ml @ 50 mls/hr IV . Q20H [facility] Rx#:[id number] Sodium Chloride 0.9% 1, 1500 000 ml @ 999 mls/hr IV . Q1H1M ONE Rx#:[id number] Vancomycin 1,750 mg In 501 Sodium Chloride 0.9% 500 ml 500 ml @ 167 mls/hr IVPB ONCE ONE Rx#: [id number] Intake, IV Titration 1.928 182.484 Amount Heparin Sod,Pork in 0.45% 76.682 NaCl 25,000 unit In 0.45 % NaCl 1 250ml.bag @ 8.82 UNITS/KG/HR 10.002 mls/ hr IV .Q24H [facility] Rx#: [id number] Propofol 1,000 mg In 1.928 12.247 Empty Bag 1 bag @ Titrate IV .Q0M ONE Rx#: [id number] Propofol 1,000 mg In 93.555 Empty Bag 1 bag @ Titrate IV .Q0M [facility] Rx#: [id number] Output: Urine 0 0 Urine/Stool Mix 0 Other: Voiding Method Indwelling Catheter - Exam Unresponsive, calm and comfortable intubated on a mechanical ventilator. O rogastric and orotracheal tube are both in place. The patient is on propofol running at 40 g per minute and this was admitted to improve his sleep with the mechanical ventilator. He remains completely unresponsive. Does not withdraw to painful stimulation. Head exam was generally normal. There was no scleral icterus or corneal arcus. Mucous membranes were moist. Neck was supple and without jugular venous distension, thyromegaly, or carotid bruits. Carotids were easily palpable bilaterally. There was no adenopathy. Lungs sounds are diminished and the patient has scattered expiratory wheezes heard bilaterally. Scattered rhonchi also present. Heart sounds are irregular, positive S1-S2 and no significant murmurs could be appreciated. The patient has a sternotomy scar over the anterior chest area. Abdominal exam revealed normal bowel sounds. The abdomen was soft, non-tender, and without masses, organomegaly, or appreciable enlargement of the abdominal aorta. Extremities the patient has a nonfunctioning dialysis access in left upper extremity. No pulsatile be appreciated. Pulses in the lower extremities are also diminished by mouth femoral pulses are well palpated. No cyanosis. No clubbing. Neurologically, the patient has acute was regular and equal and symmetrical around 4-5 mm. Sluggish reactive to light. No nystagmus. No clonus. No facial asymmetry. Unresponsive to deep painful stimulation. For now he is breathing above the vent. He does have a very mild gag reflex when the tube was manipulated. No Babinski. No clonus. Motor function cannot be assessed. Has a function cannot be assessed. Examination of the skin revealed no evidence of significant rashes, suspicious appearing nevi or other concerning lesions. - Labs CBC & Chem 7: 09/10/19 04:32 09/10/19 04:32 Labs: Abnormal Lab Results - Last 24 Hours (Table) 09/09/19 09/09/19 09/09/19 Range/Units 17:28 17:36 17:36 WBC 20.0 H (3.8-10.6) k/uL RBC 3.26 L (4.30-5.90) m/uL Hgb 11.3 L (13.0-17.5) gm/dL Hct 35.1 L (39.0-53.0) % MCV 107.5 H (80.0-100.0) fL Neutrophils # 14.4 H (1.3-7.7) k/uL APTT (22.0-30.0) sec ABG pH (7.35-7.45) ABG pCO2 (35-45) mmHg ABG pO2 (83-108) mmHg ABG HCO3 (21-25) mmol/L ABG Total CO2 (19-24) mmol/L ABG O2 Saturation (94-97) % Sodium 136 L (137-145) mmol/L Potassium 5.3 H (3.5-5.1) mmol/L Carbon Dioxide 18 L (22-30) mmol/L BUN 43 H (9-20) mg/dL Creatinine 5.04 H (0.66-1.25) mg/dL Glucose 297 H (74-99) mg/dL POC Glucose (mg/dL) 278 H (75-99) mg/dL Plasma Lactic Acid Leno (0.7-2.0) mmol/L Magnesium 3.0 H (1.6-2.3) mg/dL AST 279 H (17-59) U/L ALT 235 H (4-49) U/L Alkaline Phosphatase 150 H (38-126) U/L Troponin I (0.000-0.034) ng/mL Total Protein 5.8 L (6.3-8.2) g/dL Albumin 3.4 L (3.5-5.0) g/dL 09/09/19 09/09/19 09/09/19 Range/Units 17:36 17:56 21:03 WBC (3.8-10.6) k/uL RBC (4.30-5.90) m/uL Hgb (13.0-17.5) gm/dL Hct (39.0-53.0) % MCV (80.0-100.0) fL Neutrophils # (1.3-7.7) k/uL APTT (22.0-30.0) sec ABG pH 7.29 L (7.35-7.45) ABG pCO2 (35-45) mmHg ABG pO2 347 H (83-108) mmHg ABG HCO3 19 L (21-25) mmol/L ABG Total CO2 (19-24) mmol/L ABG O2 Saturation 100.0 H (94-97) % Sodium (137-145) mmol/L Potassium (3.5-5.1) mmol/L Carbon Dioxide (22-30) mmol/L BUN (9-20) mg/dL Creatinine (0.66-1.25) mg/dL Glucose (74-99) mg/dL POC Glucose (mg/dL) 221 H (75-99) mg/dL Plasma Lactic Acid Leno (0.7-2.0) mmol/L Magnesium (1.6-2.3) mg/dL AST (17-59) U/L ALT (4-49) U/L Alkaline Phosphatase (38-126) U/L Troponin I 0.075 H* (0.000-0.034) ng/mL Total Protein (6.3-8.2) g/dL Albumin (3.5-5.0) g/dL 09/09/19 09/10/19 09/10/19 Range/Units 21:46 01:50 02:20 WBC (3.8-10.6) k/uL RBC (4.30-5.90) m/uL Hgb (13.0-17.5) gm/dL Hct (39.0-53.0) % MCV (80.0-100.0) fL Neutrophils # (1.3-7.7) k/uL APTT (22.0-30.0) sec ABG pH (7.35-7.45) ABG pCO2 (35-45) mmHg ABG pO2 (83-108) mmHg ABG HCO3 (21-25) mmol/L ABG Total CO2 (19-24) mmol/L ABG O2 Saturation (94-97) % Sodium (137-145) mmol/L Potassium (3.5-5.1) mmol/L Carbon Dioxide (22-30) mmol/L BUN (9-20) mg/dL Creatinine (0.66-1.25) mg/dL Glucose (74-99) mg/dL POC Glucose (mg/dL) (75-99) mg/dL Plasma Lactic Acid Leno 5.2 H* 8.0 H* (0.7-2.0) mmol/L Magnesium (1.6-2.3) mg/dL AST (17-59) U/L ALT (4-49) U/L Alkaline Phosphatase (38-126) U/L Troponin I 3.520 H* (0.000-0.034) ng/mL Total Protein (6.3-8.2) g/dL Albumin (3.5-5.0) g/dL 09/10/19 09/10/19 09/10/19 Range/Units 03:50 04:32 04:32 WBC 26.8 H (3.8-10.6) k/uL RBC 3.41 L (4.30-5.90) m/uL Hgb 11.6 L (13.0-17.5) gm/dL Hct 35.5 L (39.0-53.0) % MCV 103.9 H (80.0-100.0) fL Neutrophils # (1.3-7.7) k/uL APTT (22.0-30.0) sec ABG pH (7.35-7.45) ABG pCO2 (35-45) mmHg ABG pO2 (83-108) mmHg ABG HCO3 (21-25) mmol/L ABG Total CO2 (19-24) mmol/L ABG O2 Saturation (94-97) % Sodium 135 L (137-145) mmol/L Potassium 5.7 H (3.5-5.1) mmol/L Carbon Dioxide 16 L (22-30) mmol/L BUN 51 H (9-20) mg/dL Creatinine 5.06 H (0.66-1.25) mg/dL Glucose 296 H (74-99) mg/dL POC Glucose (mg/dL) 288 H (75-99) mg/dL Plasma Lactic Acid Leno (0.7-2.0) mmol/L Magnesium (1.6-2.3) mg/dL AST (17-59) U/L ALT (4-49) U/L Alkaline Phosphatase (38-126) U/L Troponin I (0.000-0.034) ng/mL Total Protein (6.3-8.2) g/dL Albumin (3.5-5.0) g/dL 09/10/19 09/10/19 09/10/19 Range/Units 05:04 05:20 06:13 WBC (3.8-10.6) k/uL RBC (4.30-5.90) m/uL Hgb (13.0-17.5) gm/dL Hct (39.0-53.0) % MCV (80.0-100.0) fL Neutrophils # (1.3-7.7) k/uL APTT >200.0 H* (22.0-30.0) sec ABG pH (7.35-7.45) ABG pCO2 27 L (35-45) mmHg ABG pO2 143 H (83-108) mmHg ABG HCO3 17 L (21-25) mmol/L ABG Total CO2 18 L (19-24) mmol/L ABG O2 Saturation 99.8 H (94-97) % Sodium (137-145) mmol/L Potassium (3.5-5.1) mmol/L Carbon Dioxide (22-30) mmol/L BUN (9-20) mg/dL Creatinine (0.66-1.25) mg/dL Glucose (74-99) mg/dL POC Glucose (mg/dL) (75-99) mg/dL Plasma Lactic Acid Leno 6.0 H* (0.7-2.0) mmol/L Magnesium (1.6-2.3) mg/dL AST (17-59) U/L ALT (4-49) U/L Alkaline Phosphatase (38-126) U/L Troponin I (0.000-0.034) ng/mL Total Protein (6.3-8.2) g/dL Albumin (3.5-5.0) g/dL 09/10/19 Range/Units 08:10 WBC (3.8-10.6) k/uL RBC (4.30-5.90) m/uL Hgb (13.0-17.5) gm/dL Hct (39.0-53.0) % MCV (80.0-100.0) fL Neutrophils # (1.3-7.7) k/uL APTT (22.0-30.0) sec ABG pH (7.35-7.45) ABG pCO2 (35-45) mmHg ABG pO2 (83-108) mmHg ABG HCO3 (21-25) mmol/L ABG Total CO2 (19-24) mmol/L ABG O2 Saturation (94-97) % Sodium (137-145) mmol/L Potassium (3.5-5.1) mmol/L Carbon Dioxide (22-30) mmol/L BUN (9-20) mg/dL Creatinine (0.66-1.25) mg/dL Glucose (74-99) mg/dL POC Glucose (mg/dL) 422 H (75-99) mg/dL Plasma Lactic Acid Leno (0.7-2.0) mmol/L Magnesium (1.6-2.3) mg/dL AST (17-59) U/L ALT (4-49) U/L Alkaline Phosphatase (38-126) U/L Troponin I (0.000-0.034) ng/mL Total Protein (6.3-8.2) g/dL Albumin (3.5-5.0) g/dL Assessment and Plan Plan: 1 cardiac arrest with prolonged downtime estimated to be around 30 minutes or more. The patient was a PEA. He was resuscitated. He received CPR. I have not had any access to the EMS run sheet. Upon arrival to the emergency department, the patient received a brief CPR and resuscitation and subsequently there was return of spontaneous circulation. Currently intubated on a mechanical ventilator. Unresponsive. Hemodynamically he is maintaining his own blood pressure without the use of any pressors. On 09/10/2019 the patient is atrial fibrillation. No further cardiac arrhythmias or cardiac arrest since yesterday. The patient is on no pressors. He is maintaining his own blood pressure. 2 acute hypoxic respiratory failure secondary to above currently intubated on a mechanical ventilator 3 unresponsive with a possibility of hypoxic encephalopathy post cardiac arrest, had CT scan of the brain was negative for acute abnormalities. 4 atrial fibrillation with a controlled rate 5 known history of coronary artery disease with previous bypass surgery 6 systolic heart failure with a unknown ejection fraction. 7 End stage renal disease on hemodialysis a times a week MWF. The axis in the left upper extremity is no function of this point in time. 8 COPD 9 diabetes mellitus, with elevated blood sugar and the patient will be started on insulin drip 10 obesity with a BMI of 38 11 hypertension 12 hyperlipidemia 13 leukocytosis likely reactive, white cell count is at 26 14 abnormal liver function tests 15 diarrhea, recovered and fecal management system is in place Plan Continue vent support and drop the FiO2 down to 40% Chest x-ray was reviewed Blood gases was reviewed Keep the patient on sedation with propofol Proceed with EEG and the propofol can be discontinued for the purpose of testing with EEG Echocardiogram 12-lead EKG Repeat cardiac enzymes Start the patient on insulin drip Nephrology consultation Vascular consultation for possible dialysis access Cardiology consultation Neurology consultation Family was updated We'll continue to follow make further recommendations based on his progress. Condition is critical at this point in time. Evaluation was done more than 30 minutes. Time with Patient: Greater than 30
[2019-09-10] MEDS ORDERED: INSULIN REGULAR BOLUS (FROM DRIP BAG) IV PRN (09:00)
[2019-09-10] MEDS: PIPERACILLIN-TAZOBACTAM 3.375 GM in SODIUM CHLORIDE 0.9% 100 ML IVPB SCH ×2 (09:37→22:53)
[2019-09-10 09:43] LABS: Total Bilirubin 0.6 mg/dL (0.2-1.3)
[2019-09-10] MEDS: INSULIN REGULAR 100 UNIT in SODIUM CHLORIDE 0.9% 100 ML IV SCH (09:47)
[2019-09-10] MEDS: PANTOPRAZOLE 40 MG/10 ML VIAL IVP SCH (10:02)
--- NOTE | 2019-09-10 10:04 | P.NPCON ---
History of Present Illness - Reason for Consult Consult date: 09/10/19 end stage renal disease - Chief Complaint Cardiac arrest - History of Present Illness 74-year-old gentleman coming to the hospital with P a cardiac arrest. History obtained from the chart and the son at bedside. He is on dialysis for more than a year while left upper arm AVG. As per the son she did not miss any dialysis and the last dialysis was . He was found unresponsive at home downtime unknown and CPR was started. Currently not on any pressors on heparin drip. 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 Does not know his dialysis unit. Review of Systems Constitutional: Reports as per HPI Past Medical History Past Medical History: Atrial Fibrillation, Coronary Artery Disease (CAD), Chest Pain / Angina, Heart Failure, COPD, Diabetes Mellitus, Dialysis, Eye Disorder, Hyperlipidemia, Hypertension, Myocardial Infarction (DE), Osteoarthritis (OA), Sleep Apnea/CPAP/BIPAP Additional Past Medical History / Comment(s): Diabetic retinopathy, Neck pain due to arthritis Last Myocardial Infarction Date:: 2004 History of Any Multi-Drug Resistant Organisms: None Reported Past Surgical History: Coronary Bypass/CABG, Orthopedic Surgery Additional Past Surgical History / Comment(s): graft in the LUE, lower spine surgery (late ) Additional Past Anesthesia/Blood Transfusion Reaction / Comment(s): Unknown if pt has had any transfusion in the past Past Psychological History: No Psychological Hx Reported Smoking Status: Never smoker Past Alcohol Use History: None Reported Medications and Allergies Allergies Allergy/AdvReac Type Severity Reaction Status Date / Time Unable to Assess Allergy Verified 09/09/19 17:38 Physical Exam Vitals: Vital Signs Temp Pulse Resp BP Pulse Ox 09/10/19 08:00 88 24 144/56 99 09/10/19 07:44 82 09/10/19 07:00 82 24 155/62 99 09/10/19 06:00 81 24 153/59 100 09/10/19 05:00 90 24 122/51 100 09/10/19 04:00 98.6 F 90 24 134/62 99 09/10/19 03:38 90 09/10/19 03:24 87 09/10/19 03:00 98.7 F 89 24 126/60 99 09/10/19 02:00 81 4 L 99 09/10/19 01:00 71 4 L 97 09/10/19 00:22 65 09/10/19 00:00 71 24 98 09/09/19 23:56 66 09/09/19 23:00 67 24 97 09/09/19 22:00 59 L 24 99 09/09/19 21:50 64 09/09/19 21:40 64 09/09/19 21:02 69 24 122/95 98 09/09/19 19:45 67 18 102/54 98 09/09/19 19:35 93.4 F L 63 20 106/60 99 09/09/19 19:25 68 18 100/59 100 09/09/19 19:20 68 18 99/55 100 09/09/19 19:17 68 20 99/55 100 09/09/19 19:10 67 18 69/47 100 09/09/19 18:55 73 20 89/48 100 09/09/19 18:50 73 20 83/54 100 09/09/19 18:45 73 18 92/57 100 09/09/19 18:35 74 20 116/65 100 09/09/19 18:20 75 20 110/64 100 09/09/19 18:05 83 20 99/60 100 09/09/19 17:08 76 18 130/70 97 Intake and Output 09/09/19 09/10/19 09/10/19 22:59 06:59 14:59 Intake Total 918.012 0790.237 50 Output Total 0 0 0 Balance 450.508 2003.237 50 Intake: IV 225 2476 50 Calcium Gluconate 1 gm In 100 Sodium Chloride 0.9% 100 ml @ 100 mls/hr IVPB ONCE ONE Rx#:[id number] Piperacillin-Tazobactam 3 25 75 .375 gm In Sodium Chloride 0.9% 100 ml @ 25 mls/hr IVPB Q12H [facility] Rx# :[id number] Sodium Chloride 0.9% 1, 100 400 50 000 ml @ 50 mls/hr IV . Q20H [facility] Rx#:[id number] Sodium Chloride 0.9% 1, 1500 000 ml @ 999 mls/hr IV . Q1H1M ONE Rx#:[id number] Vancomycin 1,750 mg In 501 Sodium Chloride 0.9% 500 ml 500 ml @ 167 mls/hr IVPB ONCE ONE Rx#: [id number] Intake, IV Titration 14.175 170.237 Amount Heparin Sod,Pork in 0.45% 76.682 NaCl 25,000 unit In 0.45 % NaCl 1 250ml.bag @ 8.82 UNITS/KG/HR 10.002 mls/ hr IV .Q24H [facility] Rx#: [id number] Propofol 1,000 mg In 14.175 Empty Bag 1 bag @ Titrate IV .Q0M [facility] Rx#: [id number] Propofol 1,000 mg In 93.555 Empty Bag 1 bag @ Titrate IV .Q0M [facility] Rx#: [id number] Output: Urine 0 0 0 Urine/Stool Mix 0 Other: Voiding Method Indwelling Catheter Indwelling Catheter Weight 113.398 kg 110.3 kg No acute distress Intubated on ventilator S1-S2 heard Decreased breath sounds Abdomen soft Left upper arm AVG clotted Results - Lab Results Most recent lab results ABG pH 7.40 (7.35-7.45) 09/10/19 05:04 ABG pCO2 27 mmHg (35-45) L 09/10/19 05:04 ABG pO2 143 mmHg (83-108) H 09/10/19 05:04 ABG HCO3 17 mmol/L (21-25) L 09/10/19 05:04 ABG O2 Saturation 99.8 % (94-97) H 09/10/19 05:04 Calcium 8.7 mg/dL (8.4-10.2) 09/10/19 04:32 Magnesium 3.0 mg/dL (1.6-2.3) H 09/09/19 17:36 09/10/19 04:32 09/10/19 04:32 Assessment and Plan Assessment: #1 status post PEA cardiac arrest. #2 ESRD on hemodialysis, TTS well left upper arm AVG loop graft. #3 mild hyperkalemia #4 vent-dependent respiratory failure #5 and an gap metabolic acidosis Plan: #1 vascular surgery consultation for Fede catheter placement. #2 hemodialysis today with 2k/30 bicarb/0 UF. #3 plan hemodialysis tomorrow based on clinical status. #4 supportive care.
--- NOTE | 2019-09-10 10:25 | CONS ---
CONSULTATION Mr. Mayes is a 74-year-old male with a known history of coronary artery disease status post coronary artery bypass grafting, history of end-stage renal disease on hemodialysis for the last year, who has not been seen in our hospital in the past. According to the records and to his son who was in the room today, the patient yesterday went out and his found him down about 10 minutes after, the initial downtime is unclear. Prolonged CPR was performed with recurrent episode of CPR. At this time, he is intubated, hemodynamically stable on no pressor. According to the son, the patient had a bypass surgery in 2004. He had a prior history of CHF, although details are not very clear. It does not appear that he had any recent ischemic event. 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 His level of activity and endurance has decreased over the last year or 2 and he has been on hemodialysis for the last year. He has no history of arrhythmia as per the son. He has no documented history of stroke or seizure. He is not a smoker. No list of medication is available to me. REVIEW OF SYSTEMS: Could not be obtained. PHYSICAL EXAMINATION: He is a 74-year-old male intubated, nonresponsive. Blood pressure 144/50 with a heart rate in the 60s. HEAD: Normocephalic. Eyes: Pupils fixed with no significant reaction to light. Neck: No bruit. LUNGS: Clear to auscultation anteriorly. HEART: Regular rate and rhythm S1, S2. No S3 with systolic murmur. No diastolic murmur. No rub. ABDOMEN: Soft. Positive bowel sounds. EXTREMITIES: No significant edema. +2 distal pulses. LAB DATA: Lab data revealed a hemoglobin of 11.3, white blood cell of 20,000. BUN and creatinine 43 and 5.04, potassium 5.3. Troponin of 0.075 and 3.5. NT proBNP of 8830. This morning, his BUN and creatinine 51 are 5.06. His plasma lactic acid is 6. His pH 7.4 with pCO2 of 27, PO2 143. His EKG revealed yesterday atrial fibrillation with right bundle branch block. Nonspecific ST-T wave changes. His EKG today revealed sinus mechanism. The right bundle branch block has resolved and there is nonspecific ST-T wave changes. IMPRESSION: 1. Cardiopulmonary arrest. Initial event is unclear, not documented. The patient had prolonged CPR. 2. Probable anoxic encephalopathy. 3. Paroxysmal atrial fibrillation of unknown duration, back in sinus mechanism. 4. Status post coronary artery bypass grafting. 5. History of heart failure, but no documentation of his ejection fraction available to me. 6. End-stage renal disease, on hemodialysis. 7. Troponin elevation, could be related to the CPR. I do not see any clear evidence to suggest a primary ischemic event on the EKG, although cannot be excluded. RECOMMENDATIONS: From the cardiac standpoint, we will continue supportive care. I will try to obtain any workup that was done in the past at [facility]. We will obtain echocardiogram with Doppler. Continue rest of his medical regimen. Dialysis will be initiated. Unfortunately, the prognosis is quite poor. I have discussed those findings with the son, especially with the long down time. Thank you for this consult. We will follow with you. MMJOVANNYL / IJN: [id number] /
[2019-09-10] MEDS: NOREPINEPHRINE 8 MG in SODIUM CHLORIDE 0.9% 250 ML IV SCH (11:30)
[2019-09-10 12:00] LABS: Glucose,Whole Blood 350 mg/dL (75-99)
[2019-09-10 13:26] LABS: Glucose,Whole Blood 190 mg/dL (75-99)
--- NOTE | 2019-09-10 13:33 | P.PN ---
Subjective Progress Note Date: 09/10/19 (delayed charting seen at 0915) Principal diagnosis: cardiac arrest Patient is a 74-year-old female with a past medical history of end- stage renal disease on hemodialysis, cardiomyopathy unknown type, diabetes, and multiple other comorbid conditions who was brought in as a when necessary progress. He underwent 2 separate episodes of cardiac arrest resulting in an approximate 30 minute downtime. Initially his first cardiac arrest wasn't unwitnessed event with approximately a 20 minute downtime, he then arrested again en route to the hospital with approximately a 10 minute time period in the ER he underwent extensive evaluation. Initial EKG showed A. fib with a high fascicular block at 65, chest x-ray was unremarkable, CT brain that was unremarkable, initial white blood cell count 20, hemoglobin 11.3, sodium 136, potassium 5.3, carbon dioxide 18, anion gap 20, BUN 43, creatinine 5, glucose 271, lactic acid 5.2, AST 279, ALT 235, and troponin of 0.075. His BNP was mildly elevated at 8830. His initial ABG showed a pH of 7.29, CO2 41, O2 347, and bicarb 19. He was subsequently admitted to the ICU. He has been on a propofol drip. He has not been bringing a ventilator. The morning after admission and elevating glucose and he was started on an insulin drip. He was also noted to have hyperkalemia at 5.7 and. It appeared that he lost function of his dialysis graft during the code and that likely clotted off. He was evaluated by critical care initially in the emergency department. He did have multiple episode of diarrhea overnight on 09/09/19. Nephrology and neurology have been consulted. Currently awaiting echocardiogram and EEG. On the morning of 09/09 he developed low blood pressure requiring a norepinephrine drip, he also is having some head movements. He did not have any further arrhythmias after admission. Patient seen and examined at bedside. He is currently unresponsive and sedated on vent. Son at bedside. Patient is not breathing over the vent, currently no cough, no gag, eyes are fixed and nonreactive but pupils are normal in size and equal. Case discussed with nursing and Dr. Washington Objective - Vital Signs Vital signs: Vital Signs Temp 98.6 F 09/10/19 04:00 Pulse 90 09/10/19 11:45 Resp 24 09/10/19 08:00 BP 144/56 09/10/19 08:00 Pulse Ox 99 09/10/19 08:00 Intake & Output 09/09/19 09/10/19 09/10/19 18:59 06:59 18:59 Intake Total 1.928 2883.484 162.066 Output Total 0 0 Balance 1.928 2883.484 162.066 Weight 113.398 kg 110.3 kg Intake: IV 2701 50 Calcium Gluconate 1 gm In 100 Sodium Chloride 0.9% 100 ml @ 100 mls/hr IVPB ONCE ONE Rx#:[id number] Piperacillin-Tazobactam 3 100 .375 gm In Sodium Chloride 0.9% 100 ml @ 25 mls/hr IVPB Q12H [facility] Rx# :[id number] Sodium Chloride 0.9% 1, 500 50 000 ml @ 50 mls/hr IV . Q20H [facility] Rx#:[id number] Sodium Chloride 0.9% 1, 1500 000 ml @ 999 mls/hr IV . Q1H1M ONE Rx#:[id number] Vancomycin 1,750 mg In 501 Sodium Chloride 0.9% 500 ml 500 ml @ 167 mls/hr IVPB ONCE ONE Rx#: [id number] Intake, IV Titration 1.928 182.484 112.066 Amount Heparin Sod,Pork in 0.45% 76.682 6.6 NaCl 25,000 unit In 0.45 % NaCl 1 250ml.bag @ 8.82 UNITS/KG/HR 10.002 mls/ hr IV .Q24H [facility] Rx#: [id number] Insulin Regular 100 unit 31.344 In Sodium Chloride 0.9% 100 ml @ Per Protocol IV .Q0M [facility] Rx#:[id number] Propofol 1,000 mg In 1.928 12.247 Empty Bag 1 bag @ Titrate IV .Q0M [facility] Rx#: [id number] Propofol 1,000 mg In 93.555 74.122 Empty Bag 1 bag @ Titrate IV .Q0M [facility] Rx#: [id number] Output: Urine 0 0 Urine/Stool Mix 0 Other: Voiding Method Indwelling Catheter - Exam General: non toxic, no distress, appears at stated age, obese Derm: warm, dry Head: atraumatic, normocephalic, symmetric Eyes: EOMI, no lid lag, anicteric sclera Mouth: no lip lesion, mucus membranes moist Cardiovascular: S1S2 reg, no murmur, positive posterior tibial pulse bilateral, no thrill of left upper extremity fistula Lungs: CTA bilateral, no rhonchi, no rales , no accessory muscle use, on vent Abdominal: soft, nontender to palpation, no guarding, no appreciable organomegaly Ext: no gross muscle atrophy, trace edema, no contractures Neuro: Pupils are nonreactive bilaterally, no spontaneous movements noted, no cough, lymphatic breathing over vent Psych: Alert, oriented, appropriate affect - Labs CBC & Chem 7: 09/10/19 04:32 09/10/19 04:32 Labs: Abnormal Lab Results - Last 24 Hours (Table) 09/09/19 09/09/19 09/09/19 Range/Units 17:28 17:36 17:36 WBC 20.0 H (3.8-10.6) k/uL RBC 3.26 L (4.30-5.90) m/uL Hgb 11.3 L (13.0-17.5) gm/dL Hct 35.1 L (39.0-53.0) % MCV 107.5 H (80.0-100.0) fL Neutrophils # 14.4 H (1.3-7.7) k/uL APTT (22.0-30.0) sec ABG pH (7.35-7.45) ABG pCO2 (35-45) mmHg ABG pO2 (83-108) mmHg ABG HCO3 (21-25) mmol/L ABG Total CO2 (19-24) mmol/L ABG O2 Saturation (94-97) % Sodium 136 L (137-145) mmol/L Potassium 5.3 H (3.5-5.1) mmol/L Carbon Dioxide 18 L (22-30) mmol/L BUN 43 H (9-20) mg/dL Creatinine 5.04 H (0.66-1.25) mg/dL Glucose 297 H (74-99) mg/dL POC Glucose (mg/dL) 278 H (75-99) mg/dL Plasma Lactic Acid Leno (0.7-2.0) mmol/L Magnesium 3.0 H (1.6-2.3) mg/dL AST 279 H (17-59) U/L ALT 235 H (4-49) U/L Alkaline Phosphatase 150 H (38-126) U/L Troponin I (0.000-0.034) ng/mL Total Protein 5.8 L (6.3-8.2) g/dL Albumin 3.4 L (3.5-5.0) g/dL 09/09/19 09/09/19 09/09/19 Range/Units 17:36 17:56 21:03 WBC (3.8-10.6) k/uL RBC (4.30-5.90) m/uL Hgb (13.0-17.5) gm/dL Hct (39.0-53.0) % MCV (80.0-100.0) fL Neutrophils # (1.3-7.7) k/uL APTT (22.0-30.0) sec ABG pH 7.29 L (7.35-7.45) ABG pCO2 (35-45) mmHg ABG pO2 347 H (83-108) mmHg ABG HCO3 19 L (21-25) mmol/L ABG Total CO2 (19-24) mmol/L ABG O2 Saturation 100.0 H (94-97) % Sodium (137-145) mmol/L Potassium (3.5-5.1) mmol/L Carbon Dioxide (22-30) mmol/L BUN (9-20) mg/dL Creatinine (0.66-1.25) mg/dL Glucose (74-99) mg/dL POC Glucose (mg/dL) 221 H (75-99) mg/dL Plasma Lactic Acid Leno (0.7-2.0) mmol/L Magnesium (1.6-2.3) mg/dL AST (17-59) U/L ALT (4-49) U/L Alkaline Phosphatase (38-126) U/L Troponin I 0.075 H* (0.000-0.034) ng/mL Total Protein (6.3-8.2) g/dL Albumin (3.5-5.0) g/dL 09/09/19 09/10/19 09/10/19 Range/Units 21:46 01:50 02:20 WBC (3.8-10.6) k/uL RBC (4.30-5.90) m/uL Hgb (13.0-17.5) gm/dL Hct (39.0-53.0) % MCV (80.0-100.0) fL Neutrophils # (1.3-7.7) k/uL APTT (22.0-30.0) sec ABG pH (7.35-7.45) ABG pCO2 (35-45) mmHg ABG pO2 (83-108) mmHg ABG HCO3 (21-25) mmol/L ABG Total CO2 (19-24) mmol/L ABG O2 Saturation (94-97) % Sodium (137-145) mmol/L Potassium (3.5-5.1) mmol/L Carbon Dioxide (22-30) mmol/L BUN (9-20) mg/dL Creatinine (0.66-1.25) mg/dL Glucose (74-99) mg/dL POC Glucose (mg/dL) (75-99) mg/dL Plasma Lactic Acid Leno 5.2 H* 8.0 H* (0.7-2.0) mmol/L Magnesium (1.6-2.3) mg/dL AST (17-59) U/L ALT (4-49) U/L Alkaline Phosphatase (38-126) U/L Troponin I 3.520 H* (0.000-0.034) ng/mL Total Protein (6.3-8.2) g/dL Albumin (3.5-5.0) g/dL 09/10/19 09/10/19 09/10/19 Range/Units 03:50 04:03 04:32 WBC 26.8 H (3.8-10.6) k/uL RBC 3.41 L (4.30-5.90) m/uL Hgb 11.6 L (13.0-17.5) gm/dL Hct 35.5 L (39.0-53.0) % MCV 103.9 H (80.0-100.0) fL Neutrophils # (1.3-7.7) k/uL APTT (22.0-30.0) sec ABG pH (7.35-7.45) ABG pCO2 (35-45) mmHg ABG pO2 (83-108) mmHg ABG HCO3 (21-25) mmol/L ABG Total CO2 (19-24) mmol/L ABG O2 Saturation (94-97) % Sodium (137-145) mmol/L Potassium (3.5-5.1) mmol/L Carbon Dioxide (22-30) mmol/L BUN (9-20) mg/dL Creatinine (0.66-1.25) mg/dL Glucose (74-99) mg/dL POC Glucose (mg/dL) 288 H (75-99) mg/dL Plasma Lactic Acid Leno (0.7-2.0) mmol/L Magnesium (1.6-2.3) mg/dL AST 295 H (17-59) U/L ALT 231 H (4-49) U/L Alkaline Phosphatase (38-126) U/L Troponin I (0.000-0.034) ng/mL Total Protein (6.3-8.2) g/dL Albumin (3.5-5.0) g/dL 09/10/19 09/10/19 09/10/19 Range/Units 04:32 05:04 05:20 WBC (3.8-10.6) k/uL RBC (4.30-5.90) m/uL Hgb (13.0-17.5) gm/dL Hct (39.0-53.0) % MCV (80.0-100.0) fL Neutrophils # (1.3-7.7) k/uL APTT >200.0 H* (22.0-30.0) sec ABG pH (7.35-7.45) ABG pCO2 27 L (35-45) mmHg ABG pO2 143 H (83-108) mmHg ABG HCO3 17 L (21-25) mmol/L ABG Total CO2 18 L (19-24) mmol/L ABG O2 Saturation 99.8 H (94-97) % Sodium 135 L (137-145) mmol/L Potassium 5.7 H (3.5-5.1) mmol/L Carbon Dioxide 16 L (22-30) mmol/L BUN 51 H (9-20) mg/dL Creatinine 5.06 H (0.66-1.25) mg/dL Glucose 296 H (74-99) mg/dL POC Glucose (mg/dL) (75-99) mg/dL Plasma Lactic Acid Leno (0.7-2.0) mmol/L Magnesium (1.6-2.3) mg/dL AST (17-59) U/L ALT (4-49) U/L Alkaline Phosphatase (38-126) U/L Troponin I (0.000-0.034) ng/mL Total Protein (6.3-8.2) g/dL Albumin (3.5-5.0) g/dL 09/10/19 09/10/19 09/10/19 Range/Units 06:13 08:10 11:58 WBC (3.8-10.6) k/uL RBC (4.30-5.90) m/uL Hgb (13.0-17.5) gm/dL Hct (39.0-53.0) % MCV (80.0-100.0) fL Neutrophils # (1.3-7.7) k/uL APTT (22.0-30.0) sec ABG pH (7.35-7.45) ABG pCO2 (35-45) mmHg ABG pO2 (83-108) mmHg ABG HCO3 (21-25) mmol/L ABG Total CO2 (19-24) mmol/L ABG O2 Saturation (94-97) % Sodium (137-145) mmol/L Potassium (3.5-5.1) mmol/L Carbon Dioxide (22-30) mmol/L BUN (9-20) mg/dL Creatinine (0.66-1.25) mg/dL Glucose (74-99) mg/dL POC Glucose (mg/dL) 422 H 350 H (75-99) mg/dL Plasma Lactic Acid Leno 6.0 H* (0.7-2.0) mmol/L Magnesium (1.6-2.3) mg/dL AST (17-59) U/L ALT (4-49) U/L Alkaline Phosphatase (38-126) U/L Troponin I (0.000-0.034) ng/mL Total Protein (6.3-8.2) g/dL Albumin (3.5-5.0) g/dL Assessment and Plan Assessment: Aborted sudden cardiac -Supportive care Elevated troponin in the setting of CPR and coronary artery disease status post CABG - likely due to CPR - ASA once on PO - cardio recs appreciated - no need to follow troponin at this time. Lactic acidosis secondary to hypoperfusion from cardiac arrest -Limit IV fluid resuscitation as patient has end-stage renal disease and is and. -No need to continue to follow lactic acid likely reflective of cardiac arrest and not true sepsis DM 2 with hyperglycemia - insulin gtt started - follow BS - await HgB A1C Acute hypoxic respiratory failure, due to above - vent management per cricial care Acute encephalopathy, likely hypoxic - await EEG - neuro checks -Consult neurology who will be available on 09/12/19 Congestive heart failure with unknown ejection fraction - check echo - fluid management with HD End-stage renal disease with hyperkalemia -Patient has had temporary dialysis catheter placed -Nephrology recommendations appreciated -Plan is for dialysis 09/20/19 Leukocytosis - suspect reactive due to down time - follow CBC - monitor for fevers P. Afib rate controlled - heparin gtt - rate controlled - cardio recs - tele Transaminitis -Likely secondary to liver injury from hypoperfusion -Follow LFTs Diarrhea, resolved Chronic: COPD HTN HLD Poor overall prognosis DVT prophylaxis: Heparin Discussed with: Family, Dr. Washington, nursing Anticipated discharge: Undetermined Anticipated discharge place: Undetermined A total of 35 minutes was spent on the care of this complex patient more than 50% of the time was spent in counseling and care coordination.
[2019-09-10 14:00] LABS: Glucose,Whole Blood 152 mg/dL (75-99)
[2019-09-10 14:51] LABS: Glucose,Whole Blood 118 mg/dL (75-99)
[2019-09-10 15:51] LABS: Glucose,Whole Blood 145 mg/dL (75-99)
--- NOTE | 2019-09-10 16:00 | ECHOF ---
Referral Reason:cardiac arrest MEASUREMENTS -------- HEIGHT: 172.7 cm WEIGHT: 110.2 kg BP: 122/51 RVIDd: 3.2 cm (< 3.3) IVSd: 1.3 cm (0.6 - 1.1) LVIDd: 3.9 cm (3.9 - 5.3) LVPWd: 1.3 cm (0.6 - 1.1) IVSs: 1.7 cm LVIDs: 2.6 cm LVPWs: 1.4 cm LA Diam: 3.3 cm (2.7 - 3.8) LAESV Index (A-L): 27.30 ml/m Ao Diam: 2.9 cm (2.0 - 3.7) AV Cusp: 2.0 cm (1.5 - 2.6) MV EXCURSION: 18.395 mm (> 18.000) MV EF SLOPE: 31 mm/s (70 - 150) EPSS: 0.8 cm MV E Clifford: 0.86 m/s MV DecT: 323 ms MV A Clifford: 0.62 m/s MV E/A Ratio: 1.37 RAP: 5.00 mmHg RVSP: 43.78 mmHg FINDINGS -------- Sinus rhythm. This was a technically difficult study with suboptimal views. The left ventricular size is normal. There is mild concentric left ventricular hypertrophy. Overa ll left ventricular systolic function is normal with, an EF between 55 - 60 %. The right ventricle is normal in size. Normal LA size by volume 22+/-6 ml/m2. The right atrial size is normal. 5 ml of Lumason was utilized for enhancement of images. Interatrial and interventricular septum intact. There is mild aortic valve sclerosis. The mitral valve leaflets are mildly thickened. Mild mitral regurgitation is present. Mild tricuspid regurgitation present. There is mild pulmonary hypertension. The right ventricular systolic pressure, as measured by Doppler, is 43.78mmHg. Trace/mild (physiologic) pulmonic regurgitation. The aortic root size is normal. The inferior vena cava is mildly dilated. IVC Not well visulized. There is no pericardial effusion. CONCLUSIONS -------- 1. Sinus rhythm. 2. This was a technically difficult study with suboptimal views. 3. The left ventricular size is normal. 4. There is mild concentric left ventricular hypertrophy. 5. Overall left ventricular systolic function is normal with, an EF between 55 - 60 %. 6. Normal LA size by volume 22+/-6 ml/m2. 7. 5 ml of Lumason was utilized for enhancement of images. 8. There is mild aortic valve sclerosis. 9. The mitral valve leaflets are mildly thickened. 10. Mild mitral regurgitation is present. 11. Mild tricuspid regurgitation present. 12. There is mild pulmonary hypertension. 13. Trace/mild (physiologic) pulmonic regurgitation. 14. The inferior vena cava is mildly dilated. 15. IVC Not well visulized. 16. There is no pericardial effusion. PRESS BOX CUSTODIAN: Arelis Kapadia RDCS
[2019-09-10 16:56] LABS: Glucose,Whole Blood 181 mg/dL (75-99)
[2019-09-10] MEDS: SODIUM CHLORIDE 0.9% 1,000 ML IV SCH (17:15)
[2019-09-10 18:06] LABS: Glucose,Whole Blood 215 mg/dL (75-99)
[2019-09-10 18:57] LABS: Glucose,Whole Blood 173 mg/dL (75-99)
[2019-09-10 19:55] LABS: Glucose,Whole Blood 177 mg/dL (75-99)
--- NOTE | 2019-09-10 20:48 | CONS ---
DATE OF CONSULTATION: 09/10/2019 This is a 74 -year-old gentleman who came with cardiac arrest and had CPR and has been intubated. Patient has history of hypertension, coronary artery disease, COPD, chronic renal failure. The patient has a left upper arm [place]-Janusz graft which has been occluded, which was placed at [facility]. I was consulted for placement of the dialysis catheter. PHYSICAL EXAMINATION: Patient was seen in his room. Patient has been intubated. The patient is on Levophed. NECK: Supple. Chest: Both lungs had good air entry. ABDOMEN: Soft, femorals are 1+ bilateral. PLAN: Placement of the dialysis catheter. Risks and complications discussed. MMODL / IJN: [id number] / MTDD
[2019-09-10 20:58] LABS: Glucose,Whole Blood 183 mg/dL (75-99)
[2019-09-10 21:59] LABS: Glucose,Whole Blood 180 mg/dL (75-99)
[2019-09-10 22:57] LABS: Glucose,Whole Blood 167 mg/dL (75-99)
[2019-09-10 23:55] LABS: Glucose,Whole Blood 171 mg/dL (75-99)
[2019-09-11 01:09] LABS: Glucose,Whole Blood 187 mg/dL (75-99)
[2019-09-11 01:56] LABS: Glucose,Whole Blood 175 mg/dL (75-99)
[2019-09-11 04:03] LABS: Glucose,Whole Blood 191 mg/dL (75-99)
[2019-09-11] MEDS: IPRATROPIUM-ALBUTEROL 3 ML NEB INHALATION SCH ×5 (04:15→21:30)
[2019-09-11] MEDS: INSULIN REGULAR 100 UNIT in SODIUM CHLORIDE 0.9% 100 ML IV SCH ×2 (04:22→21:25)
[2019-09-11] MEDS ORDERED: VANCOMYCIN 1,750 MG in SODIUM CHLORIDE 0.9% 500 ML 500 ML IVPB ONE (05:00)
[2019-09-11 05:14] LABS: Glucose,Whole Blood 208 mg/dL (75-99)
[2019-09-11 05:15] LABS: HCT 31.4 % (39.0-53.0); HGB 10.6 gm/dL (13.0-17.5); MCH 34.4 pg (25.0-35.0); MCHC 33.6 g/dL (31.0-37.0); MCV 102.3 fL (80.0-100.0); Macrocytosis Slight; Mean Platelet Volume 8.9; Platelet Count 102 k/uL (150-450); RBC 3.07 m/uL (4.30-5.90); RDW 14.4 % (11.5-15.5); WBC 16.8 k/uL (3.8-10.6)
[2019-09-11 05:25] LABS: Calcium 8.9 mg/dL (8.4-10.2)
[2019-09-11 05:26] LABS: ABG Base Excess -4.7 mmol/L; ABG HCO3 18 mmol/L (21-25); ABG Oxygen Saturation 99.8 % (94-97); ABG PCO2 22 mmHg (35-45); ABG PH 7.53 (7.35-7.45); ABG PO2 183 mmHg (83-108); ABG TCO2 19 mmol/L (19-24); Allen Test Performed? Yes
[2019-09-11 06:03] LABS: Glucose,Whole Blood 183 mg/dL (75-99)
[2019-09-11] MEDS ORDERED: HEPARIN SODIUM,PORCINE 5,000 UNIT/ML 1 ML VIAL IV STA (06:27)
[2019-09-11 06:48] LABS: Glucose,Whole Blood 175 mg/dL (75-99)
[2019-09-11 07:54] LABS: Glucose,Whole Blood 179 mg/dL (75-99)
--- NOTE | 2019-09-11 08:08 | XR ---
EXAMINATION TYPE: XR chest 1V portable DATE OF EXAM: 09/11/2019 Comparison: 09/10/2019 Clinical History: 74-year-old male SOB Findings: ET tube is in place. NG tube courses below the diaphragm. Right subclavian CVC tip in the upper right atrium. Median sternotomy wires are present with post-CABG clips. Heart remains borderline enlarged with mild diffuse vascular prominence. No kyleigh consolidation or pleural effusion. Some patchy medial right basilar opacity. Impression: Correlate for continued mild pulmonary vascular congestion. Similar patchy medial right basilar atele ctasis versus mild infiltrate.
[2019-09-11] MEDS: CHLORHEXIDINE GLUCONATE 15 ML CUP MUCOUS MEM SCH ×2 (08:48→21:24)
[2019-09-11] MEDS: PANTOPRAZOLE 40 MG/10 ML VIAL IVP SCH (09:03)
--- NOTE | 2019-09-11 09:03 | PCN ---
PROCEDURE NOTE PREOP DIAGNOSIS: Acute on chronic renal failure. PROCEDURE PERFORMED: Ultrasound-guided dialysis catheter placed in right femoral approach. DESCRIPTION OF PROCEDURE: The patient was seen in his room. Right groin was prepped and drapes applied in a sterile manner. After that, 1% lidocaine was infiltrated. Ultrasound-guided micropuncture introduced into the right femoral vein. Micropuncture guidewire was passed and 4-Sinhala dilator advanced on top of the guidewire. After that, we passed a regular guidewire. Then dilator was advanced and after that we placed a dialysis catheter on the top of the guidewire. The guidewire was removed, flushed with heparin saline and hep-locked and secured with 3-0 nylon. Dressing applied. Patient tolerated the procedure well. SAPNA / SANGITAN: [id number] /
[2019-09-11] MEDS: PIPERACILLIN-TAZOBACTAM 3.375 GM in SODIUM CHLORIDE 0.9% 100 ML IVPB SCH ×2 (09:04→21:28)
[2019-09-11 09:08] LABS: Glucose,Whole Blood 187 mg/dL (75-99)
[2019-09-11 10:09] LABS: Glucose,Whole Blood 212 mg/dL (75-99)
[2019-09-11] MEDS: HEPARIN SOD,PORK IN 0.45% NACL 25,000 UNIT in 0.45% NACL 1 250ML.BAG IV SCH (10:11)
--- NOTE | 2019-09-11 10:37 | P.PN ---
Subjective Progress Note Date: 09/11/19 74-year-old male patient who receives most of his care through [facility]. The patient is not known to us and he has never been hospitalized in our hospital. The patient was last seen by his this afternoon at around 1400 and he was also getting the birds for around 10-15 minutes when she noticed that he he was not around. She went on then she found the patient unresponsive. She called EMS. The initial downtime was estimated to be around 15 minutes when EMS came in and CPR was initiated. The patient was found to be deep. Pulse was resumed and the patient was intubated. The patient maintained his pulse for around 30 minutes. On route, he lost pulses for another 10 minutes and ultimately see arrived to our emergency department while receiving the Eder. He was down by additional 2 minutes. Now emergency where pulses were recovered and the Eder was removed. The patient currently is completely unresponsive. He is intubated on a mechanical ventilator. He is maintaining his blood pressure without any pressors. He is on assist control mode at the rate of 18 with a tidal volume of 500 and FiO2 of 50% with a PEEP of 5. The blood gas showed a pH of 7.28 with a pCO2 of 40 and pO2 of 147. This was done approximately an hour after it without JVD. The triple-lumen catheter was established. He remains on Lasix, the patient is in renal failure however the patient is on dialysis. ProBNP level is elevated. Chest x-ray shows cardiomegaly without any acute abnormalities. The triple-lumen catheter is in a good location. ET tube is in a location. Within 45 minutes to an hour, the patient started biting on the tissue. He was started on propofol in the emerg ency department. The patient had a white cell count of 20.0. Hemoglobin was 11.3. The sodium is 136 and a potassium level of 5.3. Serum bicarb is 18. BUN is 43 with a creatinine of 5.04. Glucose for now is to do 97. AST is 279 ALT is 235 troponin is a 0.075 with a proBNP level of 8830. EKG shows atrial fibrillation with occasional PVCs. His rate is currently in the mid 70s. His most recent blood pressure is 105/67. Upon inspection, the patient has a access in his left upper extremity. I wasn't able to obtain any falls or any heave or thrill in the left upper extremity. I elected discussion with the family. Based on the reported history, the patient has multiple medical problems and comorbidities. He is known to have coronary artery disease and he is undergone a previous bypass surgery. This was done in an outside hospital. He is known to have coronary artery disease. He also is diabetic. He developed chronic kidney disease and approximately 8 months ago he was started on hemodialysis through an AV fistula in his left upper extremity. He gets dialyzed 3 times a week MWF. He also has COPD, hypertension, hyperlipidemia and history of severe cardiomyopathy. His u nderlying ejection fraction is not known. He does not have a defibrillator or pacemaker in place. Armendariz catheter is in place. No urine output for now. The medication is unknown. The family does not have a medication list brought with them. On 09/10/2019 and seeing this patient for a follow-up. The patient as mentioned earlier his post cardiac arrest. This morning, he is on propofol. The port was being titrated for synchrony with the mechanical ventilator as the patient was becoming asynchronous and he was walking and the tissue. He remains unresponsive. Not responding to any deep painful stimulation. Is was sedated for now. Initial CAT scan of the brain was negative. No seizure activity has been noted. No neck stiffness. In terms of respiratory support, the patient remains on a mechanical ventilator. He remains assist control mode at the rate of 18 with a tidal volume of 500 and FiO2 of 40% with a PEEP of 5. Blood gases showed a pH of 7.4 with a pCO2 of 27 and pO2 of 143. Chest x-ray from today shows some limited infiltration of the right lung base. Tubes are in good location. No significant orotracheal secretions. White cell count is up to 26.8. He has having some ongoing lactic acidosis. Lactic acid was 5.2 and earlier this morning. 0.0. He is being gently hydrated knowing that he has no urine output and the patient is on dialysis without any dialysis port or sites that is functional at this point. He was given a bolus of 1 L he is given antibiotic coverage including a combination of Zosyn and a dose of vancomycin will also given yesterday. No urine output as stated. Troponin peaked at 3.5 and the patient remains on IV heparin. No further cardiac arrhythmias and his rhythm currently is sinus. He is on no pressors. He is maintaining his own blood pressure for now without any hemodynamic support. No fever. He did have some loose diarrhea yesterday and a fecal management system was inserted and currently is not having any significant stool output and the diarrhea has subsided. NG tube in place. Further workup is pending for now. On 09/11/2019 and seeing the patient for a follow-up. As stated earlier the patient is post cardiac arrest. The patient is completely unresponsive. His been off sedation for the past 24 hours. EEG from yesterday showed diffuse slowing consistent with anoxic encephalopathy. My neurologic exam from today's even worse. The patient in fact has signs of neurologic brain . I did not elicit any corneal reflex, pupillary reflexes, cough reflex or gag reflex on this patient. Furthermore, it is connected to mechanical ventilator for around a minute and the patient did not demonstrate any breathing efforts. As such, there is a high likelihood that the patient is neurologically that and an official brain protocol needs to be done at a later stage. He got dialyzed yesterday without any major difficulties. Currently is in a mechanical ventilator on assist control mode rate of 18 with a tidal volume of 500 and FiO2 of 40% with a PEEP of 5. Blood gas from today shows a pH of 7.53 with a pCO2 of 20%. Also one 83. S x-ray shows no acute abnormalities. ET tube is in a good location. Rest of the electrodes are all within normal limits. No urine output. White cell count at 16.8. No fever. No seizure activity has been noted. No other significant events overnight. The heart was done and the patient is a preserved LV function. No significant valvular abnormalities. The patient's rhythm is sinus for now with a first-degree AV block. He remains on IV heparin. There has been some drop in the platelet count since yesterday. The platelet count is down to 105 while him being on IV heparin. Objective - Vital Signs Vital signs: Vital Signs Temp 97 F L 09/11/19 08:00 Pulse 75 09/11/19 09:00 Resp 24 09/11/19 09:00 BP 136/66 09/11/19 09:00 Pulse Ox 100 09/11/19 09:00 Intake & Output 09/10/19 09/11/19 09/11/19 17:59 06:59 18:59 Intake Total 185.915 Output Total 0 Balance 185.915 Weight Intake: IV 50 Piperacillin-Tazobactam 3 .375 gm In Sodium Chloride 0.9% 100 ml @ 25 mls/hr IVPB Q12H [facility] Rx# :[id number] Sodium Chloride 0.9% 1, 50 000 ml @ 50 mls/hr IV . Q20H [facility] Rx#:[id number] Vancomycin 1,750 mg In Sodium Chloride 0.9% 500 ml 500 ml @ 167 mls/hr IVPB ONCE ONE Rx#: [id number] Intake, IV Titration 135.915 Amount Heparin Sod,Pork in 0.45% 99.486 NaCl 25,000 unit In 0.45 % NaCl 1 250ml.bag @ 8.82 UNITS/KG/HR 10.002 mls/ hr IV .Q24H [facility] Rx#: [id number] Insulin Regular 100 unit 16.429 In Sodium Chloride 0.9% 100 ml @ Per Protocol IV .Q0M [facility] Rx#:[id number] Norepinephrine 8 mg In Sodium Chloride 0.9% 250 ml @ 0.05 MCG/KG/MIN 10. 672 mls/hr IV .Q24H [facility] Rx#:[id number] Propofol 1,000 mg In Empty Bag 1 bag @ Titrate IV .Q0M [facility] Rx#: [id number] Sodium Chloride 0.9% 1, 20 000 ml @ 50 mls/hr IV . Q20H [facility] Rx#:[id number] Output: Urine 0 Uretheral (Armendariz) 0 Stool Urine/Stool Mix Other: Voiding Method Indwelling Catheter - Exam Unresponsive, calm and comfortable intubated on a mechanical ventilator. Orogastric and orotracheal tube are both in place . The patient has been off propofol for the past 24 hours. Head exam was generally normal. There was no scleral icterus or corneal arcus. Mucous membranes were moist. Neck was supple and without jugular venous distension, thyromegaly, or carotid bruits. Carotids were easily palpable bilaterally. There was no adenopathy. Lungs sounds are diminished and the patient has scattered expiratory wheezes heard bilaterally. Scattered rhonchi also present. Heart sounds are irregular, positive S1-S2 and no significant murmurs could be appreciated. The patient has a sternotomy scar over the anterior chest area. Abdominal exam revealed normal bowel sounds. The abdomen was soft, non-tender, and without masses, organomegaly, or appreciable enlargement of the abdominal aorta. Extremities the patient has a nonfunctioning dialysis access in left upper extremity. No pulsatile be appreciated. Pulses in the lower extremities are also diminished by mouth femoral pulses are well palpated. No cyanosis. No clubbing. Neurologically, the patient has acute was regular and equal and symmetrical around 5 mm. no light reflex. No pulmonary reflex. No corneal reflex. No gag reflex. No cough reflex. No breathing reflex. Occasional decerebrate hoarse during. No nystagmus. No clonus. No facial asymmetry. Unresponsive to deep painful stimulation. Examination of the skin revealed no evidence of significant rashes, suspicious appearing nevi or other concerning lesions. - Labs CBC & Chem 7: 09/11/19 04:31 09/11/19 04:31 Labs: Abnormal Lab Results - Last 24 Hours (Table) 09/10/19 09/10/19 09/10/19 Range/Units 04:03 11:58 13:24 WBC (3.8-10.6) k/uL RBC (4.30-5.90) m/uL Hgb (13.0-17.5) gm/dL Hct (39.0-53.0) % MCV (80.0-100.0) fL Plt Count (150-450) k/uL APTT (22.0-30.0) sec ABG pH (7.35-7.45) ABG pCO2 (35-45) mmHg ABG pO2 (83-108) mmHg ABG HCO3 (21-25) mmol/L ABG O2 Saturation (94-97) % Sodium (137-145) mmol/L Carbon Dioxide (22-30) mmol/L BUN (9-20) mg/dL Creatinine (0.66-1.25) mg/dL Glucose (74-99) mg/dL POC Glucose (mg/dL) 350 H 190 H (75-99) mg/dL AST 295 H (17-59) U/L ALT 231 H (4-49) U/L 09/10/19 09/10/19 09/10/19 Range/Units 13:59 14:50 15:50 WBC (3.8-10.6) k/uL RBC (4.30-5.90) m/uL Hgb (13.0-17.5) gm/dL Hct (39.0-53.0) % MCV (80.0-100.0) fL Plt Count (150-450) k/uL APTT (22.0-30.0) sec ABG pH (7.35-7.45) ABG pCO2 (35-45) mmHg ABG pO2 (83-108) mmHg ABG HCO3 (21-25) mmol/L ABG O2 Saturation (94-97) % Sodium (137-145) mmol/L Carbon Dioxide (22-30) mmol/L BUN (9-20) mg/dL Creatinine (0.66-1.25) mg/dL Glucose (74-99) mg/dL POC Glucose (mg/dL) 152 H 118 H 145 H (75-99) mg/dL AST (17-59) U/L ALT (4-49) U/L 09/10/19 09/10/19 09/10/19 Range/Units 16:54 18:04 18:56 WBC (3.8-10.6) k/uL RBC (4.30-5.90) m/uL Hgb (13.0-17.5) gm/dL Hct (39.0-53.0) % MCV (80.0-100.0) fL Plt Count (150-450) k/uL APTT (22.0-30.0) sec ABG pH (7.35-7.45) ABG pCO2 (35-45) mmHg ABG pO2 (83-108) mmHg ABG HCO3 (21-25) mmol/L ABG O2 Saturation (94-97) % Sodium (137-145) mmol/L Carbon Dioxide (22-30) mmol/L BUN (9-20) mg/dL Creatinine (0.66-1.25) mg/dL Glucose (74-99) mg/dL POC Glucose (mg/dL) 181 H 215 H 173 H (75-99) mg/dL AST (17-59) U/L ALT (4-49) U/L 09/10/19 09/10/19 09/10/19 Range/Units 18:57 19:53 20:57 WBC (3.8-10.6) k/uL RBC (4.30-5.90) m/uL Hgb (13.0-17.5) gm/dL Hct (39.0-53.0) % MCV (80.0-100.0) fL Plt Count (150-450) k/uL APTT 50.9 H (22.0-30.0) sec ABG pH (7.35-7.45) ABG pCO2 (35-45) mmHg ABG pO2 (83-108) mmHg ABG HCO3 (21-25) mmol/L ABG O2 Saturation (94-97) % Sodium (137-145) mmol/L Carbon Dioxide (22-30) mmol/L BUN (9-20) mg/dL Creatinine (0.66-1.25) mg/dL Glucose (74-99) mg/dL POC Glucose (mg/dL) 177 H 183 H (75-99) mg/dL AST (17-59) U/L ALT (4-49) U/L 09/10/19 09/10/19 09/10/19 Range/Units 21:58 22:56 23:54 WBC (3.8-10.6) k/uL RBC (4.30-5.90) m/uL Hgb (13.0-17.5) gm/dL Hct (39.0-53.0) % MCV (80.0-100.0) fL Plt Count (150-450) k/uL APTT (22.0-30.0) sec ABG pH (7.35-7.45) ABG pCO2 (35-45) mmHg ABG pO2 (83-108) mmHg ABG HCO3 (21-25) mmol/L ABG O2 Saturation (94-97) % Sodium (137-145) mmol/L Carbon Dioxide (22-30) mmol/L BUN (9-20) mg/dL Creatinine (0.66-1.25) mg/dL Glucose (74-99) mg/dL POC Glucose (mg/dL) 180 H 167 H 171 H (75-99) mg/dL AST (17-59) U/L ALT (4-49) U/L 09/11/19 09/11/19 09/11/19 Range/Units 01:08 01:54 04:01 WBC (3.8-10.6) k/uL RBC (4.30-5.90) m/uL Hgb (13.0-17.5) gm/dL Hct (39.0-53.0) % MCV (80.0-100.0) fL Plt Count (150-450) k/uL APTT (22.0-30.0) sec ABG pH (7.35-7.45) ABG pCO2 (35-45) mmHg ABG pO2 (83-108) mmHg ABG HCO3 (21-25) mmol/L ABG O2 Saturation (94-97) % Sodium (137-145) mmol/L Carbon Dioxide (22-30) mmol/L BUN (9-20) mg/dL Creatinine (0.66-1.25) mg/dL Glucose (74-99) mg/dL POC Glucose (mg/dL) 187 H 175 H 191 H (75-99) mg/dL AST (17-59) U/L ALT (4-49) U/L 09/11/19 09/11/19 09/11/19 Range/Units 04:31 04:31 04:31 WBC 16.8 H (3.8-10.6) k/uL RBC 3.07 L (4.30-5.90) m/uL Hgb 10.6 L (13.0-17.5) gm/dL Hct 31.4 L (39.0-53.0) % MCV 102.3 H (80.0-100.0) fL Plt Count 102 L (150-450) k/uL APTT 34.8 H (22.0-30.0) sec ABG pH (7.35-7.45) ABG pCO2 (35-45) mmHg ABG pO2 (83-108) mmHg ABG HCO3 (21-25) mmol/L ABG O2 Saturation (94-97) % Sodium 134 L (137-145) mmol/L Carbon Dioxide 17 L (22-30) mmol/L BUN 39 H (9-20) mg/dL Creatinine 4.22 H (0.66-1.25) mg/dL Glucose 188 H (74-99) mg/dL POC Glucose (mg/dL) (75-99) mg/dL AST (17-59) U/L ALT (4-49) U/L 09/11/19 09/11/19 09/11/19 Range/Units 05:11 05:18 06:01 WBC (3.8-10.6) k/uL RBC (4.30-5.90) m/uL Hgb (13.0-17.5) gm/dL Hct (39.0-53.0) % MCV (80.0-100.0) fL Plt Count (150-450) k/uL APTT (22.0-30.0) sec ABG pH 7.53 H (7.35-7.45) ABG pCO2 22 L (35-45) mmHg ABG pO2 183 H (83-108) mmHg ABG HCO3 18 L (21-25) mmol/L ABG O2 Saturation 99.8 H (94-97) % Sodium (137-145) mmol/L Carbon Dioxide (22-30) mmol/L BUN (9-20) mg/dL Creatinine (0.66-1.25) mg/dL Glucose (74-99) mg/dL POC Glucose (mg/dL) 208 H 183 H (75-99) mg/dL AST (17-59) U/L ALT (4-49) U/L 09/11/19 09/11/19 09/11/19 Range/Units 06:46 07:52 09:07 WBC (3.8-10.6) k/uL RBC (4.30-5.90) m/uL Hgb (13.0-17.5) gm/dL Hct (39.0-53.0) % MCV (80.0-100.0) fL Plt Count (150-450) k/uL APTT (22.0-30.0) sec ABG pH (7.35-7.45) ABG pCO2 (35-45) mmHg ABG pO2 (83-108) mmHg ABG HCO3 (21-25) mmol/L ABG O2 Saturation (94-97) % Sodium (137-145) mmol/L Carbon Dioxide (22-30) mmol/L BUN (9-20) mg/dL Creatinine (0.66-1.25) mg/dL Glucose (74-99) mg/dL POC Glucose (mg/dL) 175 H 179 H 187 H (75-99) mg/dL AST (17-59) U/L ALT (4-49) U/L 09/11/19 Range/Units 10:07 WBC (3.8-10.6) k/uL RBC (4.30-5.90) m/uL Hgb (13.0-17.5) gm/dL Hct (39.0-53.0) % MCV (80.0-100.0) fL Plt Count (150-450) k/uL APTT (22.0-30.0) sec ABG pH (7.35-7.45) ABG pCO2 (35-45) mmHg ABG pO2 (83-108) mmHg ABG HCO3 (21-25) mmol/L ABG O2 Saturation (94-97) % Sodium (137-145) mmol/L Carbon Dioxide (22-30) mmol/L BUN (9-20) mg/dL Creatinine (0.66-1.25) mg/dL Glucose (74-99) mg/dL POC Glucose (mg/dL) 212 H (75-99) mg/dL AST (17-59) U/L ALT (4-49) U/L Assessment and Plan Plan: 1 cardiac arrest with prolonged downtime estimated to be around 30 minutes or more. The patient was a PEA. He was resuscitated. He received CPR. Hemodynamically stable. The echo cardiac exam shows a preserved LV function. 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 The patient has no brainstem reflexes. No breathing reflex for now. 4 atrial fibrillation currently in a sinus rhythm and the patient remains on IV heparin 5 known history of coronary artery disease with previous bypass surgery 6 systolic heart failure with a unknown ejection fraction. 7 End stage renal disease on hemodialysis a times a week MWF. The axis in the left upper extremity is no function of this point in time. The patient established a temporary dialysis access in the right femoral vein. The patient underwent hemodialysis yesterday. 8 COPD 9 diabetes mellitus, with elevated blood sugar and the patient will be started on insulin drip 10 obesity with a BMI of 38 11 hypertension 12 hyperlipidemia 13 leukocytosis likely reactive, white cell count is at 26 14 abnormal liver function tests 15 diarrhea, recovered and fecal management system is in place Plan Continue vent support Chest x-ray was reviewed Blood gases was reviewed and I'm going to drop the respiratory rate down to 14 as the patient's blood gas show a component of respiratory alkalosis Stop all forms of sedation the patient has been off her before for the past 24 hours EEG is consistent with severe encephalopathy Echocardiogram was noted insulin drip Nephrology consultation Vascular consultation for possible dialysis access Cardiology consultation Neurology consultation Family was updated Unfortunately on today's evaluation there are signs of neurologic brain . I'm going to do an official brain protocol tomorrow in conjunction with urology and will make further recommendations to the family. We'll continue supportive care for another 24 hours. I elected discussion with the son who is contemplating withdrawal of care based on the above-mentioned updates. This evaluation was done and more than 30 minutes. Time with Patient: Greater than 30
[2019-09-11 11:11] LABS: Glucose,Whole Blood 192 mg/dL (75-99)
--- NOTE | 2019-09-11 11:15 | PN ---
PROGRESS NOTE Mr. Mayes is a 74-year-old male with a known history of coronary artery disease, followed at [facility], history of end-stage disease on hemodialysis, history of paroxysmal atrial fibrillation who presented with cardiorespiratory arrest and had a prolonged CPR. He remains intubated, unresponsive. Hemodynamically stable, in atrial fibrillation. He had an echocardiogram yesterday that revealed a preserved systolic function with no significant valvular abnormalities. He underwent the placement of a dialysis catheter yesterday and underwent dialysis. His medication at this time includes IV heparin. PHYSICAL EXAMINATION: Blood pressure 136/60 with a heart rate in the 70s. Patient is intubated, unresponsive. LUNGS: Clear to auscultation anteriorly. HEART: Irregularly irregular, S1, S2. No S3 with systolic murmur. No diastolic murmur. ABDOMEN: Soft. Positive bowel sounds. EXTREMITIES: No edema. LAB DATA: Lab data revealed BUN and creatinine 39 and 4.22. Potassium 5.0, hemoglobin 10.6. IMPRESSION: 1. Status post cardiopulmonary arrest with prolonged CPR. Initial event unclear. 2. Status post coronary artery bypass grafting with no evidence of cardiomyopathy by echocardiography. 3. Paroxysmal atrial fibrillation. 4. End-stage renal disease, on hemodialysis. 5. Anoxic encephalopathy. 6. History of hyperlipidemia. 7. History of diabetes mellitus. RECOMMENDATIONS: I discussed his case with Dr. Washington, the preliminary report of his EEG revealed severe brain injury. At this time, we will continue supportive care. Await the further evaluation by the Neurology Service to guide his treatment. Unfortunately, the prognosis is quite guarded at this time. I have discussed those findings with the son. Depending on his neurological status, further recommendations will be made. MMODL / IJN: [id number] /
--- NOTE | 2019-09-11 11:19 | P.PN ---
Subjective Progress Note Date: 09/11/19 Follow-up for ESRD. Not waking up. Objective - Vital Signs Vital signs: Vital Signs Temp 97 F L 09/11/19 08:00 Pulse 76 09/11/19 11:00 Resp 24 09/11/19 11:00 BP 137/63 09/11/19 11:00 Pulse Ox 100 09/11/19 11:00 Intake & Output 09/10/19 09/11/19 09/11/19 17:59 06:59 18:59 Intake Total 297.076 Output Total 0 Balance 297.076 Weight Intake: IV 155 Piperacillin-Tazobactam 3 75 .375 gm In Sodium Chloride 0.9% 100 ml @ 25 mls/hr IVPB Q12H [facility] Rx# :[id number] Sodium Chloride 0.9% 1, 80 000 ml @ 50 mls/hr IV . Q20H [facility] Rx#:[id number] Vancomycin 1,750 mg In Sodium Chloride 0.9% 500 ml 500 ml @ 167 mls/hr IVPB ONCE ONE Rx#: [id number] Intake, IV Titration 142.076 Amount Heparin Sod,Pork in 0.45% 99.486 NaCl 25,000 unit In 0.45 % NaCl 1 250ml.bag @ 8.82 UNITS/KG/HR 10.002 mls/ hr IV .Q24H [facility] Rx#: [id number] Insulin Regular 100 unit 22.590 In Sodium Chloride 0.9% 100 ml @ Per Protocol IV .Q0M [facility] Rx#:[id number] Norepinephrine 8 mg In Sodium Chloride 0.9% 250 ml @ 0.05 MCG/KG/MIN 10. 672 mls/hr IV .Q24H [facility] Rx#:[id number] Propofol 1,000 mg In Empty Bag 1 bag @ Titrate IV .Q0M [facility] Rx#: [id number] Sodium Chloride 0.9% 1, 20 000 ml @ 50 mls/hr IV . Q20H [facility] Rx#:[id number] Output: Urine 0 Uretheral (Armendariz) 0 Stool Urine/Stool Mix Other: Voiding Method Indwelling Catheter - Exam No acute distress S1-S2 heard Lungs clear Abdomen soft Right groin Fede, left upper arm AVG clot. - Labs CBC & Chem 7: 09/11/19 04:31 09/11/19 04:31 Labs: Abnormal Lab Results - Last 24 Hours (Table) 09/10/19 09/10/19 09/10/19 Range/Units 11:58 13:24 13:59 WBC (3.8-10.6) k/uL RBC (4.30-5.90) m/uL Hgb (13.0-17.5) gm/dL Hct (39.0-53.0) % MCV (80.0-100.0) fL Plt Count (150-450) k/uL APTT (22.0-30.0) sec ABG pH (7.35-7.45) ABG pCO2 (35-45) mmHg ABG pO2 (83-108) mmHg ABG HCO3 (21-25) mmol/L ABG O2 Saturation (94-97) % Sodium (137-145) mmol/L Carbon Dioxide (22-30) mmol/L BUN (9-20) mg/dL Creatinine (0.66-1.25) mg/dL Glucose (74-99) mg/dL POC Glucose (mg/dL) 350 H 190 H 152 H (75-99) mg/dL 09/10/19 09/10/19 09/10/19 Range/Units 14:50 15:50 16:54 WBC (3.8-10.6) k/uL RBC (4.30-5.90) m/uL Hgb (13.0-17.5) gm/dL Hct (39.0-53.0) % MCV (80.0-100.0) fL Plt Count (150-450) k/uL APTT (22.0-30.0) sec ABG pH (7.35-7.45) ABG pCO2 (35-45) mmHg ABG pO2 (83-108) mmHg ABG HCO3 (21-25) mmol/L ABG O2 Saturation (94-97) % Sodium (137-145) mmol/L Carbon Dioxide (22-30) mmol/L BUN (9-20) mg/dL Creatinine (0.66-1.25) mg/dL Glucose (74-99) mg/dL POC Glucose (mg/dL) 118 H 145 H 181 H (75-99) mg/dL 09/10/19 09/10/19 09/10/19 Range/Units 18:04 18:56 18:57 WBC (3.8-10.6) k/uL RBC (4.30-5.90) m/uL Hgb (13.0-17.5) gm/dL Hct (39.0-53.0) % MCV (80.0-100.0) fL Plt Count (150-450) k/uL APTT 50.9 H (22.0-30.0) sec ABG pH (7.35-7.45) ABG pCO2 (35-45) mmHg ABG pO2 (83-108) mmHg ABG HCO3 (21-25) mmol/L ABG O2 Saturation (94-97) % Sodium (137-145) mmol/L Carbon Dioxide (22-30) mmol/L BUN (9-20) mg/dL Creatinine (0.66-1.25) mg/dL Glucose (74-99) mg/dL POC Glucose (mg/dL) 215 H 173 H (75-99) mg/dL 09/10/19 09/10/19 09/10/19 Range/Units 19:53 20:57 21:58 WBC (3.8-10.6) k/uL RBC (4.30-5.90) m/uL Hgb (13.0-17.5) gm/dL Hct (39.0-53.0) % MCV (80.0-100.0) fL Plt Count (150-450) k/uL APTT (22.0-30.0) sec ABG pH (7.35-7.45) ABG pCO2 (35-45) mmHg ABG pO2 (83-108) mmHg ABG HCO3 (21-25) mmol/L ABG O2 Saturation (94-97) % Sodium (137-145) mmol/L Carbon Dioxide (22-30) mmol/L BUN (9-20) mg/dL Creatinine (0.66-1.25) mg/dL Glucose (74-99) mg/dL POC Glucose (mg/dL) 177 H 183 H 180 H (75-99) mg/dL 09/10/19 09/10/19 09/11/19 Range/Units 22:56 23:54 01:08 WBC (3.8-10.6) k/uL RBC (4.30-5.90) m/uL Hgb (13.0-17.5) gm/dL Hct (39.0-53.0) % MCV (80.0-100.0) fL Plt Count (150-450) k/uL APTT (22.0-30.0) sec ABG pH (7.35-7.45) ABG pCO2 (35-45) mmHg ABG pO2 (83-108) mmHg ABG HCO3 (21-25) mmol/L ABG O2 Saturation (94-97) % Sodium (137-145) mmol/L Carbon Dioxide (22-30) mmol/L BUN (9-20) mg/dL Creatinine (0.66-1.25) mg/dL Glucose (74-99) mg/dL POC Glucose (mg/dL) 167 H 171 H 187 H (75-99) mg/dL 09/11/19 09/11/19 09/11/19 Range/Units 01:54 04:01 04:31 WBC 16.8 H (3.8-10.6) k/uL RBC 3.07 L (4.30-5.90) m/uL Hgb 10.6 L (13.0-17.5) gm/dL Hct 31.4 L (39.0-53.0) % MCV 102.3 H (80.0-100.0) fL Plt Count 102 L (150-450) k/uL APTT (22.0-30.0) sec ABG pH (7.35-7.45) ABG pCO2 (35-45) mmHg ABG pO2 (83-108) mmHg ABG HCO3 (21-25) mmol/L ABG O2 Saturation (94-97) % Sodium (137-145) mmol/L Carbon Dioxide (22-30) mmol/L BUN (9-20) mg/dL Creatinine (0.66-1.25) mg/dL Glucose (74-99) mg/dL POC Glucose (mg/dL) 175 H 191 H (75-99) mg/dL 09/11/19 09/11/19 09/11/19 Range/Units 04:31 04:31 05:11 WBC (3.8-10.6) k/uL RBC (4.30-5.90) m/uL Hgb (13.0-17.5) gm/dL Hct (39.0-53.0) % MCV (80.0-100.0) fL Plt Count (150-450) k/uL APTT 34.8 H (22.0-30.0) sec ABG pH (7.35-7.45) ABG pCO2 (35-45) mmHg ABG pO2 (83-108) mmHg ABG HCO3 (21-25) mmol/L ABG O2 Saturation (94-97) % Sodium 134 L (137-145) mmol/L Carbon Dioxide 17 L (22-30) mmol/L BUN 39 H (9-20) mg/dL Creatinine 4.22 H (0.66-1.25) mg/dL Glucose 188 H (74-99) mg/dL POC Glucose (mg/dL) 208 H (75-99) mg/dL 09/11/19 09/11/19 09/11/19 Range/Units 05:18 06:01 06:46 WBC (3.8-10.6) k/uL RBC (4.30-5.90) m/uL Hgb (13.0-17.5) gm/dL Hct (39.0-53.0) % MCV (80.0-100.0) fL Plt Count (150-450) k/uL APTT (22.0-30.0) sec ABG pH 7.53 H (7.35-7.45) ABG pCO2 22 L (35-45) mmHg ABG pO2 183 H (83-108) mmHg ABG HCO3 18 L (21-25) mmol/L ABG O2 Saturation 99.8 H (94-97) % Sodium (137-145) mmol/L Carbon Dioxide (22-30) mmol/L BUN (9-20) mg/dL Creatinine (0.66-1.25) mg/dL Glucose (74-99) mg/dL POC Glucose (mg/dL) 183 H 175 H (75-99) mg/dL 09/11/19 09/11/19 09/11/19 Range/Units 07:52 09:07 10:07 WBC (3.8-10.6) k/uL RBC (4.30-5.90) m/uL Hgb (13.0-17.5) gm/dL Hct (39.0-53.0) % MCV (80.0-100.0) fL Plt Count (150-450) k/uL APTT (22.0-30.0) sec ABG pH (7.35-7.45) ABG pCO2 (35-45) mmHg ABG pO2 (83-108) mmHg ABG HCO3 (21-25) mmol/L ABG O2 Saturation (94-97) % Sodium (137-145) mmol/L Carbon Dioxide (22-30) mmol/L BUN (9-20) mg/dL Creatinine (0.66-1.25) mg/dL Glucose (74-99) mg/dL POC Glucose (mg/dL) 179 H 187 H 212 H (75-99) mg/dL 09/11/19 Range/Units 11:08 WBC (3.8-10.6) k/uL RBC (4.30-5.90) m/uL Hgb (13.0-17.5) gm/dL Hct (39.0-53.0) % MCV (80.0-100.0) fL Plt Count (150-450) k/uL APTT (22.0-30.0) sec ABG pH (7.35-7.45) ABG pCO2 (35-45) mmHg ABG pO2 (83-108) mmHg ABG HCO3 (21-25) mmol/L ABG O2 Saturation (94-97) % Sodium (137-145) mmol/L Carbon Dioxide (22-30) mmol/L BUN (9-20) mg/dL Creatinine (0.66-1.25) mg/dL Glucose (74-99) mg/dL POC Glucose (mg/dL) 192 H (75-99) mg/dL Assessment and Plan Assessment: #1 status post PEA cardiac arrest. #2 ESRD on hemodialysis, TTS well left upper arm AVG loop graft. #3 mild hyperkalemia #4 vent-dependent respiratory failure #5 Anion gap metabolic acidosis Plan: #1 hemodialysis tomorrow based on clinical status. If brain , we'll talk to the family regarding goals of care prior to dialysis.
[2019-09-11 12:12] LABS: Glucose,Whole Blood 184 mg/dL (75-99)
[2019-09-11] MEDS: SODIUM CHLORIDE 0.9% 1,000 ML IV SCH (12:38)
[2019-09-11 13:26] LABS: Glucose,Whole Blood 203 mg/dL (75-99)
[2019-09-11 14:32] LABS: Glucose,Whole Blood 197 mg/dL (75-99)
[2019-09-11 15:24] LABS: Glucose,Whole Blood 191 mg/dL (75-99)
[2019-09-11 16:22] LABS: Glucose,Whole Blood 194 mg/dL (75-99)
--- NOTE | 2019-09-11 16:55 | P.PN ---
Subjective Progress Note Date: 09/11/19 Principal diagnosis: cardiac arrest Patient is a 74-year-old female with a past medical history of end- stage renal disease on hemodialysis, cardiomyopathy unknown type, diabetes, and multiple other comorbid conditions who was brought in as a when necessary progress. He underwent 2 separate episodes of cardiac arrest resulting in an approximate 30 minute downtime. Initially his first cardiac arrest wasn't unwitnessed event with approximately a 20 minute downtime, he then arrested again en route to the hospital with approximately a 10 minute time period in the ER he underwent extensive evaluation. Initial EKG showed A. fib with a high fascicular block at 65, chest x-ray was unremarkable, CT brain that was unremarkable, initial white blood cell count 20, hemoglobin 11.3, sodium 136, potassium 5.3, carbon dioxide 18, anion gap 20, BUN 43, creatinine 5, glucose 271, lactic acid 5.2, AST 279, ALT 235, and troponin of 0.075. His BNP was mildly elevated at 8830. His initial ABG showed a pH of 7.29, CO2 41, O2 347, and bicarb 19. He was subsequently admitted to the ICU. He has been on a propofol drip. He has not been bringing a ventilator. The morning after admission and elevating glucose and he was started on an insulin drip. He was also noted to have hyperkalemia at 5.7 and. It appeared that he lost function of his dialysis graft during the code and that likely clotted off. He was evaluated by critical care initially in the emergency department. He did have multiple episode of diarrhea overnight on 09/09/19. Nephrology and neurology have been consulted. On the morning of 09/09 he developed low blood pressure requiring a norepinephrine drip, he also was having some head movements. He did not have any further arrhythmias after admission. He did have HD on 09/10/19. Per verbal report from EEG consistent with severe anoxic encephalopathy. Worsening neurologic status on the morning of 09/10 with decorticate posturing. He was been off leveo, Echo within normal limits. Patient seen and examined at bedside, nursing present at bedside. not response, no breathing over vent, no cough, no gag. Objective - Vital Signs Vital signs: Vital Signs Temp 97.2 F L 09/11/19 12:00 Pulse 86 03/08/20 15:46 Resp 14 09/11/19 15:00 BP 132/58 09/11/19 15:00 Pulse Ox 99 09/11/19 15:00 Intake & Output 09/10/19 09/11/19 09/11/19 17:59 06:59 18:59 Intake Total 619.780 Output Total 0 Balance 619.780 Weight Intake: IV 410 Piperacillin-Tazobactam 3 100 .375 gm In Sodium Chloride 0.9% 100 ml @ 25 mls/hr IVPB Q12H [facility] Rx# :[id number] Sodium Chloride 0.9% 1, 310 000 ml @ 50 mls/hr IV . Q20H [facility] Rx#:[id number] Vancomycin 1,750 mg In Sodium Chloride 0.9% 500 ml 500 ml @ 167 mls/hr IVPB ONCE ONE Rx#: [id number] Intake, IV Titration 209.780 Amount Heparin Sod,Pork in 0.45% 135.493 NaCl 25,000 unit In 0.45 % NaCl 1 250ml.bag @ 8.82 UNITS/KG/HR 10.002 mls/ hr IV .Q24H [facility] Rx#: [id number] Insulin Regular 100 unit 54.287 In Sodium Chloride 0.9% 100 ml @ Per Protocol IV .Q0M [facility] Rx#:[id number] Norepinephrine 8 mg In Sodium Chloride 0.9% 250 ml @ 0.05 MCG/KG/MIN 10. 672 mls/hr IV .Q24H [facility] Rx#:[id number] Propofol 1,000 mg In Empty Bag 1 bag @ Titrate IV .Q0M [facility] Rx#: [id number] Sodium Chloride 0.9% 1, 20 000 ml @ 50 mls/hr IV . Q20H [facility] Rx#:[id number] Output: Urine 0 Uretheral (Armendariz) 0 Stool Urine/Stool Mix Other: Voiding Method Indwelling Catheter - Exam General: non toxic, no distress, appears at stated age, obese Derm: warm, dry Head: atraumatic, normocephalic, symmetric Eyes: pupils fixed and non reactive, no corneal reflex. Mouth: no lip lesion, mucus membranes moist Cardiovascular: S1S2 reg, no murmur, positive posterior tibial pulse bilateral Lungs: CTA bilateral, no rhonchi, no rales , no accessory muscle use, on vent Abdominal: soft, nontender to palpation, no guarding, no appreciable organomegaly Ext: no gross muscle atrophy, 1+ edema, no contractures Neuro: Pupils are nonreactive bilaterally, no spontaneous movements noted, no cough, no breathing over vent Psych: Alert, oriented, appropriate affect - Labs CBC & Chem 7: 09/11/19 04:31 09/11/19 04:31 Labs: Abnormal Lab Results - Last 24 Hours (Table) 09/10/19 09/10/19 09/10/19 Range/Units 15:50 16:54 18:04 WBC (3.8-10.6) k/uL RBC (4.30-5.90) m/uL Hgb (13.0-17.5) gm/dL Hct (39.0-53.0) % MCV (80.0-100.0) fL Plt Count (150-450) k/uL APTT (22.0-30.0) sec ABG pH (7.35-7.45) ABG pCO2 (35-45) mmHg ABG pO2 (83-108) mmHg ABG HCO3 (21-25) mmol/L ABG O2 Saturation (94-97) % Sodium (137-145) mmol/L Carbon Dioxide (22-30) mmol/L BUN (9-20) mg/dL Creatinine (0.66-1.25) mg/dL Glucose (74-99) mg/dL POC Glucose (mg/dL) 145 H 181 H 215 H (75-99) mg/dL 09/10/19 09/10/19 09/10/19 Range/Units 18:56 18:57 19:53 WBC (3.8-10.6) k/uL RBC (4.30-5.90) m/uL Hgb (13.0-17.5) gm/dL Hct (39.0-53.0) % MCV (80.0-100.0) fL Plt Count (150-450) k/uL APTT 50.9 H (22.0-30.0) sec ABG pH (7.35-7.45) ABG pCO2 (35-45) mmHg ABG pO2 (83-108) mmHg ABG HCO3 (21-25) mmol/L ABG O2 Saturation (94-97) % Sodium (137-145) mmol/L Carbon Dioxide (22-30) mmol/L BUN (9-20) mg/dL Creatinine (0.66-1.25) mg/dL Glucose (74-99) mg/dL POC Glucose (mg/dL) 173 H 177 H (75-99) mg/dL 09/10/19 09/10/19 09/10/19 Range/Units 20:57 21:58 22:56 WBC (3.8-10.6) k/uL RBC (4.30-5.90) m/uL Hgb (13.0-17.5) gm/dL Hct (39.0-53.0) % MCV (80.0-100.0) fL Plt Count (150-450) k/uL APTT (22.0-30.0) sec ABG pH (7.35-7.45) ABG pCO2 (35-45) mmHg ABG pO2 (83-108) mmHg ABG HCO3 (21-25) mmol/L ABG O2 Saturation (94-97) % Sodium (137-145) mmol/L Carbon Dioxide (22-30) mmol/L BUN (9-20) mg/dL Creatinine (0.66-1.25) mg/dL Glucose (74-99) mg/dL POC Glucose (mg/dL) 183 H 180 H 167 H (75-99) mg/dL 09/10/19 09/11/19 09/11/19 Range/Units 23:54 01:08 01:54 WBC (3.8-10.6) k/uL RBC (4.30-5.90) m/uL Hgb (13.0-17.5) gm/dL Hct (39.0-53.0) % MCV (80.0-100.0) fL Plt Count (150-450) k/uL APTT (22.0-30.0) sec ABG pH (7.35-7.45) ABG pCO2 (35-45) mmHg ABG pO2 (83-108) mmHg ABG HCO3 (21-25) mmol/L ABG O2 Saturation (94-97) % Sodium (137-145) mmol/L Carbon Dioxide (22-30) mmol/L BUN (9-20) mg/dL Creatinine (0.66-1.25) mg/dL Glucose (74-99) mg/dL POC Glucose (mg/dL) 171 H 187 H 175 H (75-99) mg/dL 09/11/19 09/11/19 09/11/19 Range/Units 04:01 04:31 04:31 WBC 16.8 H (3.8-10.6) k/uL RBC 3.07 L (4.30-5.90) m/uL Hgb 10.6 L (13.0-17.5) gm/dL Hct 31.4 L (39.0-53.0) % MCV 102.3 H (80.0-100.0) fL Plt Count 102 L (150-450) k/uL APTT 34.8 H (22.0-30.0) sec ABG pH (7.35-7.45) ABG pCO2 (35-45) mmHg ABG pO2 (83-108) mmHg ABG HCO3 (21-25) mmol/L ABG O2 Saturation (94-97) % Sodium (137-145) mmol/L Carbon Dioxide (22-30) mmol/L BUN (9-20) mg/dL Creatinine (0.66-1.25) mg/dL Glucose (74-99) mg/dL POC Glucose (mg/dL) 191 H (75-99) mg/dL 09/11/19 09/11/19 09/11/19 Range/Units 04:31 05:11 05:18 WBC (3.8-10.6) k/uL RBC (4.30-5.90) m/uL Hgb (13.0-17.5) gm/dL Hct (39.0-53.0) % MCV (80.0-100.0) fL Plt Count (150-450) k/uL APTT (22.0-30.0) sec ABG pH 7.53 H (7.35-7.45) ABG pCO2 22 L (35-45) mmHg ABG pO2 183 H (83-108) mmHg ABG HCO3 18 L (21-25) mmol/L ABG O2 Saturation 99.8 H (94-97) % Sodium 134 L (137-145) mmol/L Carbon Dioxide 17 L (22-30) mmol/L BUN 39 H (9-20) mg/dL Creatinine 4.22 H (0.66-1.25) mg/dL Glucose 188 H (74-99) mg/dL POC Glucose (mg/dL) 208 H (75-99) mg/dL 09/11/19 09/11/19 09/11/19 Range/Units 06:01 06:46 07:52 WBC (3.8-10.6) k/uL RBC (4.30-5.90) m/uL Hgb (13.0-17.5) gm/dL Hct (39.0-53.0) % MCV (80.0-100.0) fL Plt Count (150-450) k/uL APTT (22.0-30.0) sec ABG pH (7.35-7.45) ABG pCO2 (35-45) mmHg ABG pO2 (83-108) mmHg ABG HCO3 (21-25) mmol/L ABG O2 Saturation (94-97) % Sodium (137-145) mmol/L Carbon Dioxide (22-30) mmol/L BUN (9-20) mg/dL Creatinine (0.66-1.25) mg/dL Glucose (74-99) mg/dL POC Glucose (mg/dL) 183 H 175 H 179 H (75-99) mg/dL 09/11/19 09/11/19 09/11/19 Range/Units 09:07 10:07 11:08 WBC (3.8-10.6) k/uL RBC (4.30-5.90) m/uL Hgb (13.0-17.5) gm/dL Hct (39.0-53.0) % MCV (80.0-100.0) fL Plt Count (150-450) k/uL APTT (22.0-30.0) sec ABG pH (7.35-7.45) ABG pCO2 (35-45) mmHg ABG pO2 (83-108) mmHg ABG HCO3 (21-25) mmol/L ABG O2 Saturation (94-97) % Sodium (137-145) mmol/L Carbon Dioxide (22-30) mmol/L BUN (9-20) mg/dL Creatinine (0.66-1.25) mg/dL Glucose (74-99) mg/dL POC Glucose (mg/dL) 187 H 212 H 192 H (75-99) mg/dL 09/11/19 09/11/19 09/11/19 Range/Units 12:10 12:10 13:24 WBC (3.8-10.6) k/uL RBC (4.30-5.90) m/uL Hgb (13.0-17.5) gm/dL Hct (39.0-53.0) % MCV (80.0-100.0) fL Plt Count (150-450) k/uL APTT 92.4 H (22.0-30.0) sec ABG pH (7.35-7.45) ABG pCO2 (35-45) mmHg ABG pO2 (83-108) mmHg ABG HCO3 (21-25) mmol/L ABG O2 Saturation (94-97) % Sodium (137-145) mmol/L Carbon Dioxide (22-30) mmol/L BUN (9-20) mg/dL Creatinine (0.66-1.25) mg/dL Glucose (74-99) mg/dL POC Glucose (mg/dL) 184 H 203 H (75-99) mg/dL 09/11/19 09/11/19 09/11/19 Range/Units 14:29 15:23 16:20 WBC (3.8-10.6) k/uL RBC (4.30-5.90) m/uL Hgb (13.0-17.5) gm/dL Hct (39.0-53.0) % MCV (80.0-100.0) fL Plt Count (150-450) k/uL APTT (22.0-30.0) sec ABG pH (7.35-7.45) ABG pCO2 (35-45) mmHg ABG pO2 (83-108) mmHg ABG HCO3 (21-25) mmol/L ABG O2 Saturation (94-97) % Sodium (137-145) mmol/L Carbon Dioxide (22-30) mmol/L BUN (9-20) mg/dL Creatinine (0.66-1.25) mg/dL Glucose (74-99) mg/dL POC Glucose (mg/dL) 197 H 191 H 194 H (75-99) mg/dL Assessment and Plan Assessment: Aborted sudden cardiac -Supportive care Severe anoxic encephalopathy - EEG with severe anoxic encephalopathy - supportive care - neuro consult in AM - brain protocol in AM Elevated troponin in the setting of CPR and coronary artery disease status post CABG - likely due to CPR - ASA if able to tolerate PO - cardio recs appreciated - no need to follow troponin at this time. DM 2 with hyperglycemia - insulin gtt - follow BS - no need to check HgB A1C Acute hypoxic respiratory failure, due to above - vent management per cricial care Congestive heart failure, compensated with EF 55-60% - fluid management with HD End-stage renal disease -Patient has had temporary dialysis catheter placed -Nephrology recommendations appreciated -Plan is for dialysis 09/12/19 if not transitioned to comfort Leukocytosis - suspect reactive - follow CBC - monitor for fevers P. Afib rate controlled - heparin gtt - rate controlled - cardio recs - tele Transaminitis -Likely secondary to liver injury from hypoperfusion -Follow LFTs Diarrhea, resolved hyperkalemia, resolved Chronic: COPD HTN HLD Lactic acidosis secondary to hypoperfusion from cardiac arrest near brain , plan is for brain protocol in AM with neurology. DVT prophylaxis: Heparin Discussed with: Family, Dr. [place], nursing Anticipated discharge: Undetermined Anticipated discharge place: Undetermined A total of 35 minutes was spent on the care of this complex patient more than 50% of the time was spent in counseling and care coordination.
[2019-09-11 17:22] LABS: Glucose,Whole Blood 190 mg/dL (75-99)
[2019-09-11 18:07] LABS: Glucose,Whole Blood 199 mg/dL (75-99)
[2019-09-11 19:17] LABS: Glucose,Whole Blood 194 mg/dL (75-99)
--- NOTE | 2019-09-11 19:44 | EEG ---
ELECTROENCEPHALOGRAM REPORT DATE OF SERVICE: 09/10/2019. ELECTROENCEPHALOGRAM (EEG) REPORT: TECHNIQUE: A routine 18 channel EEG was performed with video using the 10/20 international electrode placement system. HISTORY: Cardiac arrest, downtime estimated 30 minutes or more. Patient resuscitated. OTHER MEDICAL HISTORY: Includes end-stage renal disease, dialysis 3 times per week. Other medical history includes diabetes, hypertension, COPD, CAD, hyperlipidemia. CURRENT MEDICATIONS: Protonix, insulin, albuterol. Please note that on this study began at 10:13 am. The sedation was turned off for approximately 20 minutes. FINDINGS: Overall, this recording was of low amplitude and interpretation was performed at 3 microvolt sensitivity. BACKGROUND: A sustained posterior dominant rhythm was not seen. ACTIVATION: Hyperventilation: Not performed. Photic stimulation: No driving seen. Sleep: Distinctive sleep stages not seen. This study ended at 11:12 am. At 11:03 am the sedation has been turned off for 45 minutes. ABNORMALITIES: Rare low amplitude theta delta range bursts were seen lasting 1 second or less. This EEG consisted primarily of diffuse electrical suppression. IMPRESSION: Markedly abnormal EEG. This EEG consisted primarily of diffuse electrical suppression with a rare short low-amplitude delta range bursts. These findings are not epileptiform in nature. These findings indicate severe diffuse cerebral dysfunction as may be seen in anoxic or hypoxic encephalopathy. No seizures were recorded. No epileptiform activity was present. These findings were called to the hospitalist physician taking care of the patient at 4:35 pm on 09/10/2019. Total study duration was 33 minutes. SAPNA / SANGITAN: [id number] /
[2019-09-11] MEDS: NOREPINEPHRINE 8 MG in SODIUM CHLORIDE 0.9% 250 ML IV SCH (21:24)
[2019-09-11 21:28] LABS: Glucose,Whole Blood 189 mg/dL (75-99)
[2019-09-11 22:09] LABS: Glucose,Whole Blood 204 mg/dL (75-99)
[2019-09-11 23:58] LABS: Glucose,Whole Blood 176 mg/dL (75-99)
[2019-09-12] MEDS: IPRATROPIUM-ALBUTEROL 3 ML NEB INHALATION SCH ×5 (00:11→15:25)
[2019-09-12 02:16] LABS: Glucose,Whole Blood 162 mg/dL (75-99)
[2019-09-12 04:45] LABS: Glucose,Whole Blood 147 mg/dL (75-99)
[2019-09-12 05:27] LABS: Basophils % (A) 0 %; Eosinophils % (A) 0 %; HCT 28.9 % (39.0-53.0); HGB 9.4 gm/dL (13.0-17.5); Lymphocytes # (A) 0.6 k/uL (1.0-4.8); Lymphocytes % (A) 4 %; MCH 34.5 pg (25.0-35.0); MCHC 32.7 g/dL (31.0-37.0); MCV 105.6 fL (80.0-100.0); Macrocytosis Moderate; Mean Platelet Volume 8.5; Monocytes # (A) 0.6 k/uL (0-1.0); Monocytes % (A) 4 %; Neutrophils # (A) 14.8 k/uL (1.3-7.7); Neutrophils % (A) 91 %; RBC 2.73 m/uL (4.30-5.90); RDW 14.5 % (11.5-15.5); WBC 16.3 k/uL (3.8-10.6)
[2019-09-12 05:28] LABS: ABG Base Excess -8.1 mmol/L; ABG HCO3 18 mmol/L (21-25); ABG Oxygen Saturation 99.3 % (94-97); ABG PCO2 38 mmHg (35-45); ABG PH 7.29 (7.35-7.45); ABG PO2 149 mmHg (83-108); ABG TCO2 20 mmol/L (19-24); Allen Test Performed? Yes
[2019-09-12 05:42] LABS: Platelet Count 90 k/uL (150-450)
[2019-09-12 06:13] LABS: Glucose,Whole Blood 190 mg/dL (75-99)
[2019-09-12 06:46] LABS: Potassium 4.4 mmol/L (3.5-5.1)
[2019-09-12 06:52] LABS: Vancomycin,Random 25.2 ug/mL
[2019-09-12 07:13] VITALS: RESP 14
[2019-09-12 08:07] LABS: Glucose,Whole Blood 163 mg/dL (75-99)
[2019-09-12] MEDS: HEPARIN SOD,PORK IN 0.45% NACL 25,000 UNIT in 0.45% NACL 1 250ML.BAG IV SCH (08:45)
[2019-09-12] MEDS: SODIUM CHLORIDE 0.9% 1,000 ML IV SCH (08:49)
[2019-09-12] MEDS: PANTOPRAZOLE 40 MG/10 ML VIAL IVP SCH (08:49)
[2019-09-12] MEDS: CHLORHEXIDINE GLUCONATE 15 ML CUP MUCOUS MEM SCH (08:49)
[2019-09-12] MEDS: PIPERACILLIN-TAZOBACTAM 3.375 GM in SODIUM CHLORIDE 0.9% 100 ML IVPB SCH (08:59)
[2019-09-12 09:27] VITALS: TEMP 98
--- NOTE | 2019-09-12 09:31 | PN ---
PROGRESS NOTE Mr. Mayes is a 74-year-old male with known history of coronary artery disease, status post coronary artery bypass grafting, history of paroxysmal atrial fibrillation, end-stage renal disease, on hemodialysis, who had a cardiopulmonary arrest requiring prolonged CPR. He is intubated and remains unresponsive with evidence to suggest severe anoxic encephalopathy. His initial EEG revealed a severe impairment. Hemodynamically, he is stable. He is on no pressors. He is back to sinus mechanism. His urine output is stable. He is scheduled to undergo further neurological evaluation today for assessment of his anoxic encephalopathy and guide his treatment. He continues to be at this time on IV heparin, Protonix, vancomycin. PHYSICAL EXAMINATION: Blood pressure 123/40 with a heart rate in the 70s. NEUROLOGIC: Not responsive to painful stimuli. LUNGS: Clear anteriorly. HEART: Regular rate and rhythm, S1, S2. No S3 with systolic ejection murmur, no diastolic murmur. ABDOMEN: Soft. Positive bowel sounds, no organomegaly. EXTREMITIES: No edema. LAB DATA: Revealed a hemoglobin of 9.4. BUN and creatinine 46 and 5.27. IMPRESSION: 1. Cardiopulmonary arrest, initial event unclear. 2. History of coronary artery disease, status post coronary artery bypass grafting with preserved systolic function on the echocardiogram. 3. Severe anoxic encephalopathy with no evidence of significant neurological activity. 4. Paroxysmal atrial fibrillation, back in sinus mechanism. 5. End-stage renal disease, on hemodialysis. 6. History of diabetes mellitus. 7. Prior history of hypertension. 8. Hyperlipidemia. RECOMMENDATION: Will await the neurological evaluation regarding his mental status. Unfortunately, the prognosis remains quite poor. I discussed those findings with the family. MMJOVANNYL / SANGITAN: [id number] /
--- NOTE | 2019-09-12 09:51 | XR ---
EXAMINATION TYPE: XR chest 1V portable DATE OF EXAM: 09/12/2019 COMPARISON: Prior chest x-ray dated 09/11/2019 HISTORY: Intubated TECHNIQUE: Single frontal view of the chest is obtained. FINDINGS: Endotracheal tube and NG tube are overlying appropriate positions, distal tip of the NG tu be not included on the exam. Right subclavian central venous catheter shows the distal tip overlying the right atrium. There are overlying artifacts, patient is post median sternotomy. Heart is enlarged and stable. Lung volumes are low, there are overlying cardiac leads. No evident pneumothorax or siza ble effusion. Patchy bibasilar density persists. IMPRESSION: Expiratory rotated exam. Possible subsegmental basilar atelectatic changes. Postop flores es, cardiomegaly.
[2019-09-12 09:53] LABS: Glucose,Whole Blood 137 mg/dL (75-99)
--- NOTE | 2019-09-12 11:04 | P.PN ---
Subjective Progress Note Date: 09/12/19 Principal diagnosis: Cardiac arrest No changes have been reported on the patient's status. Still on the vent. VS ok. Objective - Vital Signs Vital signs: Vital Signs Temp 98 F 09/12/19 08:00 Pulse 70 09/12/19 10:00 Resp 14 09/12/19 10:00 BP 120/47 09/12/19 10:00 Pulse Ox 99 09/12/19 10:00 Intake & Output 09/11/19 09/12/19 09/12/19 18:59 06:59 18:59 Intake Total 843.516 971.599 218.736 Output Total 0 0 0 Balance 843.516 971.599 218.736 Weight 112.2 kg Intake: IV 620 745 200 Piperacillin-Tazobactam 3 100 125 .375 gm In Sodium Chloride 0.9% 100 ml @ 25 mls/hr IVPB Q12H [facility] Rx# :[id number] Sodium Chloride 0.9% 1, 520 620 200 000 ml @ 50 mls/hr IV . Q20H [facility] Rx#:[id number] Intake, IV Titration 223.516 226.599 18.736 Amount Heparin Sod,Pork in 0.45% 135.493 119.169 NaCl 25,000 unit In 0.45 % NaCl 1 250ml.bag @ 8.82 UNITS/KG/HR 10.002 mls/ hr IV .Q24H [facility] Rx#: [id number] Insulin Regular 100 unit 68.023 107.430 18.736 In Sodium Chloride 0.9% 100 ml @ Per Protocol IV .Q0M [facility] Rx#:[id number] Sodium Chloride 0.9% 1, 20 000 ml @ 50 mls/hr IV . Q20H [facility] Rx#:[id number] Output: Urine 0 0 0 Uretheral (Armendariz) 0 0 Other: Voiding Method Indwelling Catheter Indwelling Catheter Indwelling Catheter - Exam General: non toxic, no distress, appears at stated age, obese Derm: warm, dry Head: atraumatic, normocephalic, symmetric Eyes: pupils fixed and non reactive, no corneal reflex. Mouth: no lip lesion, mucus membranes moist Cardiovascular: S1S2 reg, no murmur, positive posterior tibial pulse bilateral Lungs: CTA bilateral, no rhonchi, no rales , no accessory muscle use, on vent Abdominal: soft, nontender to palpation, no guarding, no appreciable organomegaly Ext: no gross muscle atrophy, 1+ edema, no contractures Neuro: Pupils are nonreactive bilaterally, no spontaneous movements noted, no cough, no breathing over vent Psych: Alert, oriented, appropriate affect - Labs CBC & Chem 7: 09/12/19 04:40 09/12/19 04:40 Labs: Abnormal Lab Results - Last 24 Hours (Table) 09/11/19 09/11/19 09/11/19 Range/Units 11:08 12:10 12:10 WBC (3.8-10.6) k/uL RBC (4.30-5.90) m/uL Hgb (13.0-17.5) gm/dL Hct (39.0-53.0) % MCV (80.0-100.0) fL Plt Count (150-450) k/uL Neutrophils # (1.3-7.7) k/uL Lymphocytes # (1.0-4.8) k/uL APTT 92.4 H (22.0-30.0) sec ABG pH (7.35-7.45) ABG pO2 (83-108) mmHg ABG HCO3 (21-25) mmol/L ABG O2 Saturation (94-97) % Chloride (98-107) mmol/L Carbon Dioxide (22-30) mmol/L BUN (9-20) mg/dL Creatinine (0.66-1.25) mg/dL Glucose (74-99) mg/dL POC Glucose (mg/dL) 192 H 184 H (75-99) mg/dL 09/11/19 09/11/19 09/11/19 Range/Units 13:24 14:29 15:23 WBC (3.8-10.6) k/uL RBC (4.30-5.90) m/uL Hgb (13.0-17.5) gm/dL Hct (39.0-53.0) % MCV (80.0-100.0) fL Plt Count (150-450) k/uL Neutrophils # (1.3-7.7) k/uL Lymphocytes # (1.0-4.8) k/uL APTT (22.0-30.0) sec ABG pH (7.35-7.45) ABG pO2 (83-108) mmHg ABG HCO3 (21-25) mmol/L ABG O2 Saturation (94-97) % Chloride (98-107) mmol/L Carbon Dioxide (22-30) mmol/L BUN (9-20) mg/dL Creatinine (0.66-1.25) mg/dL Glucose (74-99) mg/dL POC Glucose (mg/dL) 203 H 197 H 191 H (75-99) mg/dL 09/11/19 09/11/19 09/11/19 Range/Units 16:20 17:20 18:05 WBC (3.8-10.6) k/uL RBC (4.30-5.90) m/uL Hgb (13.0-17.5) gm/dL Hct (39.0-53.0) % MCV (80.0-100.0) fL Plt Count (150-450) k/uL Neutrophils # (1.3-7.7) k/uL Lymphocytes # (1.0-4.8) k/uL APTT (22.0-30.0) sec ABG pH (7.35-7.45) ABG pO2 (83-108) mmHg ABG HCO3 (21-25) mmol/L ABG O2 Saturation (94-97) % Chloride (98-107) mmol/L Carbon Dioxide (22-30) mmol/L BUN (9-20) mg/dL Creatinine (0.66-1.25) mg/dL Glucose (74-99) mg/dL POC Glucose (mg/dL) 194 H 190 H 199 H (75-99) mg/dL 09/11/19 09/11/19 09/11/19 Range/Units 19:15 21:26 22:07 WBC (3.8-10.6) k/uL RBC (4.30-5.90) m/uL Hgb (13.0-17.5) gm/dL Hct (39.0-53.0) % MCV (80.0-100.0) fL Plt Count (150-450) k/uL Neutrophils # (1.3-7.7) k/uL Lymphocytes # (1.0-4.8) k/uL APTT (22.0-30.0) sec ABG pH (7.35-7.45) ABG pO2 (83-108) mmHg ABG HCO3 (21-25) mmol/L ABG O2 Saturation (94-97) % Chloride (98-107) mmol/L Carbon Dioxide (22-30) mmol/L BUN (9-20) mg/dL Creatinine (0.66-1.25) mg/dL Glucose (74-99) mg/dL POC Glucose (mg/dL) 194 H 189 H 204 H (75-99) mg/dL 09/11/19 09/12/19 09/12/19 Range/Units 23:56 02:14 04:40 WBC (3.8-10.6) k/uL RBC (4.30-5.90) m/uL Hgb (13.0-17.5) gm/dL Hct (39.0-53.0) % MCV (80.0-100.0) fL Plt Count (150-450) k/uL Neutrophils # (1.3-7.7) k/uL Lymphocytes # (1.0-4.8) k/uL APTT (22.0-30.0) sec ABG pH (7.35-7.45) ABG pO2 (83-108) mmHg ABG HCO3 (21-25) mmol/L ABG O2 Saturation (94-97) % Chloride 108 H (98-107) mmol/L Carbon Dioxide 19 L (22-30) mmol/L BUN 46 H (9-20) mg/dL Creatinine 5.27 H (0.66-1.25) mg/dL Glucose 160 H (74-99) mg/dL POC Glucose (mg/dL) 176 H 162 H (75-99) mg/dL 09/12/19 09/12/19 09/12/19 Range/Units 04:40 04:40 04:44 WBC 16.3 H (3.8-10.6) k/uL RBC 2.73 L (4.30-5.90) m/uL Hgb 9.4 L (13.0-17.5) gm/dL Hct 28.9 L (39.0-53.0) % MCV 105.6 H (80.0-100.0) fL Plt Count 90 L (150-450) k/uL Neutrophils # 14.8 H (1.3-7.7) k/uL Lymphocytes # 0.6 L (1.0-4.8) k/uL APTT 40.6 H (22.0-30.0) sec ABG pH (7.35-7.45) ABG pO2 (83-108) mmHg ABG HCO3 (21-25) mmol/L ABG O2 Saturation (94-97) % Chloride (98-107) mmol/L Carbon Dioxide (22-30) mmol/L BUN (9-20) mg/dL Creatinine (0.66-1.25) mg/dL Glucose (74-99) mg/dL POC Glucose (mg/dL) 147 H (75-99) mg/dL 09/12/19 09/12/19 09/12/19 Range/Units 05:24 06:11 08:05 WBC (3.8-10.6) k/uL RBC (4.30-5.90) m/uL Hgb (13.0-17.5) gm/dL Hct (39.0-53.0) % MCV (80.0-100.0) fL Plt Count (150-450) k/uL Neutrophils # (1.3-7.7) k/uL Lymphocytes # (1.0-4.8) k/uL APTT (22.0-30.0) sec ABG pH 7.29 L (7.35-7.45) ABG pO2 149 H (83-108) mmHg ABG HCO3 18 L (21-25) mmol/L ABG O2 Saturation 99.3 H (94-97) % Chloride (98-107) mmol/L Carbon Dioxide (22-30) mmol/L BUN (9-20) mg/dL Creatinine (0.66-1.25) mg/dL Glucose (74-99) mg/dL POC Glucose (mg/dL) 190 H 163 H (75-99) mg/dL 09/12/19 Range/Units 09:51 WBC (3.8-10.6) k/uL RBC (4.30-5.90) m/uL Hgb (13.0-17.5) gm/dL Hct (39.0-53.0) % MCV (80.0-100.0) fL Plt Count (150-450) k/uL Neutrophils # (1.3-7.7) k/uL Lymphocytes # (1.0-4.8) k/uL APTT (22.0-30.0) sec ABG pH (7.35-7.45) ABG pO2 (83-108) mmHg ABG HCO3 (21-25) mmol/L ABG O2 Saturation (94-97) % Chloride (98-107) mmol/L Carbon Dioxide (22-30) mmol/L BUN (9-20) mg/dL Creatinine (0.66-1.25) mg/dL Glucose (74-99) mg/dL POC Glucose (mg/dL) 137 H (75-99) mg/dL Assessment and Plan Plan: Severe anoxic encephalopathy s/p sudden cardiac - EEG with severe anoxic encephalopathy - supportive care - neuro consult - brain protocol Elevated troponin in the setting of CPR and coronary artery disease status post CABG - likely due to CPR - cardio recs appreciated DM 2 with hyperglycemia - insulin gtt - follow BS - no need to check HgB A1C Acute hypoxic respiratory failure, due to above - vent management per critical care Congestive heart failure, compensated with EF 55-60% - fluid management with HD End-stage renal disease -Patient has had temporary dialysis catheter placed -Nephrology recommendations appreciated P. Afib rate controlled - heparin gtt - rate controlled - cardio recs - tele Transaminitis -Likely secondary to liver injury from hypoperfusion -Follow LFTs Diarrhea, resolved hyperkalemia, resolved Chronic: COPD HTN HLD DVT prophylaxis: Heparin Discussed with: Family, Dr. Washington, nursing Anticipated discharge: Undetermined Anticipated discharge place: Undetermined A total of 35 minutes was spent on the care of this complex patient more than 50% of the time was spent in counseling and care coordination.
[2019-09-12 11:29] VITALS: BP 117/48
--- NOTE | 2019-09-12 11:38 | P.PN ---
Subjective Progress Note Date: 09/12/19 74-year-old male patient who receives most of his care through [facility]. The patient is not known to us and he has never been hospitalized in our hospital. The patient was last seen by his this afternoon at around 1400 and he was also getting the birds for around 10-15 minutes when she noticed that he he was not around. She went on then she found the patient unresponsive. She called EMS. The initial downtime was estimated to be around 15 minutes when EMS came in and CPR was initiated. The patient was found to be deep. Pulse was resumed and the patient was intubated. The patient maintained his pulse for around 30 minutes. On route, he lost pulses for another 10 minutes and ultimately see arrived to our emergency department while receiving the Eder. He was down by additional 2 minutes. Now emergency where pulses were recovered and the Eder was removed. The patient currently is completely unresponsive. He is intubated on a mechanical ventilator. He is maintaining his blood pressure without any pressors. He is on assist control mode at the rate of 18 with a tidal volume of 500 and FiO2 of 50% with a PEEP of 5. The blood gas showed a pH of 7.28 with a pCO2 of 40 and pO2 of 147. This was done approximately an hour after it without JVD. The triple-lumen catheter was established. He remains on Lasix, the patient is in renal failure however the patient is on dialysis. ProBNP level is elevated. Chest x-ray shows cardiomegaly without any acute abnormalities. The triple-lumen catheter is in a good location. ET tube is in a location. Within 45 minutes to an hour, the patient started biting on the tissue. He was started on propofol in the emerg ency department. The patient had a white cell count of 20.0. Hemoglobin was 11.3. The sodium is 136 and a potassium level of 5.3. Serum bicarb is 18. BUN is 43 with a creatinine of 5.04. Glucose for now is to do 97. AST is 279 ALT is 235 troponin is a 0.075 with a proBNP level of 8830. EKG shows atrial fibrillation with occasional PVCs. His rate is currently in the mid 70s. His most recent blood pressure is 105/67. Upon inspection, the patient has a access in his left upper extremity. I wasn't able to obtain any falls or any heave or thrill in the left upper extremity. I elected discussion with the family. Based on the reported history, the patient has multiple medical problems and comorbidities. He is known to have coronary artery disease and he is undergone a previous bypass surgery. This was done in an outside hospital. He is known to have coronary artery disease. He also is diabetic. He developed chronic kidney disease and approximately 8 months ago he was started on hemodialysis through an AV fistula in his left upper extremity. He gets dialyzed 3 times a week MWF. He also has COPD, hypertension, hyperlipidemia and history of severe cardiomyopathy. His u nderlying ejection fraction is not known. He does not have a defibrillator or pacemaker in place. Armendariz catheter is in place. No urine output for now. The medication is unknown. The family does not have a medication list brought with them. On 09/10/2019 and seeing this patient for a follow-up. The patient as mentioned earlier his post cardiac arrest. This morning, he is on propofol. The port was being titrated for synchrony with the mechanical ventilator as the patient was becoming asynchronous and he was walking and the tissue. He remains unresponsive. Not responding to any deep painful stimulation. Is was sedated for now. Initial CAT scan of the brain was negative. No seizure activity has been noted. No neck stiffness. In terms of respiratory support, the patient remains on a mechanical ventilator. He remains assist control mode at the rate of 18 with a tidal volume of 500 and FiO2 of 40% with a PEEP of 5. Blood gases showed a pH of 7.4 with a pCO2 of 27 and pO2 of 143. Chest x-ray from today shows some limited infiltration of the right lung base. Tubes are in good location. No significant orotracheal secretions. White cell count is up to 26.8. He has having some ongoing lactic acidosis. Lactic acid was 5.2 and earlier this morning. 0.0. He is being gently hydrated knowing that he has no urine output and the patient is on dialysis without any dialysis port or sites that is functional at this point. He was given a bolus of 1 L he is given antibiotic coverage including a combination of Zosyn and a dose of vancomycin will also given yesterday. No urine output as stated. Troponin peaked at 3.5 and the patient remains on IV heparin. No further cardiac arrhythmias and his rhythm currently is sinus. He is on no pressors. He is maintaining his own blood pressure for now without any hemodynamic support. No fever. He did have some loose diarrhea yesterday and a fecal management system was inserted and currently is not having any significant stool output and the diarrhea has subsided. NG tube in place. Further workup is pending for now. On 09/11/2019 and seeing the patient for a follow-up. As stated earlier the patient is post cardiac arrest. The patient is completely unresponsive. His been off sedation for the past 24 hours. EEG from yesterday showed diffuse slowing consistent with anoxic encephalopathy. My neurologic exam from today's even worse. The patient in fact has signs of neurologic brain . I did not elicit any corneal reflex, pupillary reflexes, cough reflex or gag reflex on this patient. Furthermore, it is connected to mechanical ventilator for around a minute and the patient did not demonstrate any breathing efforts. As such, there is a high likelihood that the patient is neurologically that and an official brain protocol needs to be done at a later stage. He got dialyzed yesterday without any major difficulties. Currently is in a mechanical ventilator on assist control mode rate of 18 with a tidal volume of 500 and FiO2 of 40% with a PEEP of 5. Blood gas from today shows a pH of 7.53 with a pCO2 of 20%. Also one 83. S x-ray shows no acute abnormalities. ET tube is in a good location. Rest of the electrodes are all within normal limits. No urine output. White cell count at 16.8. No fever. No seizure activity has been noted. No other significant events overnight. The heart was done and the patient is a preserved LV function. No significant valvular abnormalities. The patient's rhythm is sinus for now with a first-degree AV block. He remains on IV heparin. There has been some drop in the platelet count since yesterday. The platelet count is down to 105 while him being on IV heparin. On today's evaluation of 09/12/2019 and seeing the patient for a follow-up. The patient remains unresponsive. No cortical function. No brainstem reflexes. No corneals. No gag. No fever reflex. Pupils are 6 mm in size and they are nonreactive to light. He has positive dose eyes. Negative cold caloric reflex. Apneic and he is not triggering the respirator. The patient does not withdraw to any painful stimulation. Occasionally he decerebrates. No other significant events overnight. He remains on a mechanical ventilator. Blood gases was noted. Hemodynamically stable. Insulin IV heparin. No fever. No chills.PH is at 7.29 with a pCO2 of 38 and pO2 of 149. The blood gases showed a WBC count 16.3 with a hemoglobin of 9.4 and a platelet count of 19. Rest of the blood work and electrolytes shows a non-anion gap metabolic acidosis with a serum bicarb of 19. BUN is 46 and creatinine of 5.2. No dialysis was performed yesterday. Blood sugar from today is 137. Objective - Vital Signs Vital signs: Vital Signs Temp 98 F 09/12/19 08:00 Pulse 73 09/12/19 11:21 Resp 14 09/12/19 11:00 BP 117/48 09/12/19 11:00 Pulse Ox 99 09/12/19 11:00 Intake & Output 09/11/19 09/12/19 09/12/19 18:59 06:59 18:59 Intake Total 843.516 971.599 268.736 Output Total 0 0 0 Balance 843.516 971.599 268.736 Weight 112.2 kg Intake: IV 620 745 250 Piperacillin-Tazobactam 3 100 125 .375 gm In Sodium Chloride 0.9% 100 ml @ 25 mls/hr IVPB Q12H [facility] Rx# :[id number] Sodium Chloride 0.9% 1, 520 620 250 000 ml @ 50 mls/hr IV . Q20H [facility] Rx#:[id number] Intake, IV Titration 223.516 226.599 18.736 Amount Heparin Sod,Pork in 0.45% 135.493 119.169 NaCl 25,000 unit In 0.45 % NaCl 1 250ml.bag @ 8.82 UNITS/KG/HR 10.002 mls/ hr IV .Q24H [facility] Rx#: [id number] Insulin Regular 100 unit 68.023 107.430 18.736 In Sodium Chloride 0.9% 100 ml @ Per Protocol IV .Q0M [facility] Rx#:[id number] Sodium Chloride 0.9% 1, 20 000 ml @ 50 mls/hr IV . Q20H [facility] Rx#:[id number] Output: Urine 0 0 0 Uretheral (Armendariz) 0 0 Other: Voiding Method Indwelling Catheter Indwelling Catheter Indwelling Catheter - Exam Unresponsive, calm and comfortable intubated on a mechanical ventilator. Orogastric and orotracheal tube are both in place . Head exam was generally normal. There was no scleral icterus or corneal arcus. Mucous membranes were moist. Neck was supple and without jugular venous distension, thyromegaly, or carotid bruits. Carotids were easily palpable bilaterally. There was no adenopathy. Lungs sounds are diminished and the patient has scattered expiratory wheezes heard bilaterally. Scattered rhonchi also present. Heart sounds are irregular, positive S1-S2 and no significant murmurs could be appreciated. The patient has a sternotomy scar over the anterior chest area. Abdominal exam revealed normal bowel sounds. The abdomen was soft, non-tender, and without masses, organomegaly, or appreciable enlargement of the abdominal aorta. Extremities the patient has a nonfunctioning dialysis access in left upper extremity. No pulsatile be appreciated. Pulses in the lower extremities are also diminished by mouth femoral pulses are well palpated. No cyanosis. No clubbing. Neurologically, the patient has acute was regular and equal and symmetrical around 5 mm. no light reflex. No pulmonary reflex. No corneal reflex. No gag reflex. No cough reflex. No breathing reflex. Occasional decerebrate posturing. No nystagmus. No clonus. No facial asymmetry. Unresponsive to deep painful stimulation. Examination of the skin revealed no evidence of significant rashes, suspicious appearing nevi or other concerning lesions. - Labs CBC & Chem 7: 09/12/19 04:40 09/12/19 04:40 Labs: Abnormal Lab Results - Last 24 Hours (Table) 09/11/19 09/11/19 09/11/19 Range/Units 12:10 12:10 13:24 WBC (3.8-10.6) k/uL RBC (4.30-5.90) m/uL Hgb (13.0-17.5) gm/dL Hct (39.0-53.0) % MCV (80.0-100.0) fL Plt Count (150-450) k/uL Neutrophils # (1.3-7.7) k/uL Lymphocytes # (1.0-4.8) k/uL APTT 92.4 H (22.0-30.0) sec ABG pH (7.35-7.45) ABG pO2 (83-108) mmHg ABG HCO3 (21-25) mmol/L ABG O2 Saturation (94-97) % Chloride (98-107) mmol/L Carbon Dioxide (22-30) mmol/L BUN (9-20) mg/dL Creatinine (0.66-1.25) mg/dL Glucose (74-99) mg/dL POC Glucose (mg/dL) 184 H 203 H (75-99) mg/dL 09/11/19 09/11/19 09/11/19 Range/Units 14:29 15:23 16:20 WBC (3.8-10.6) k/uL RBC (4.30-5.90) m/uL Hgb (13.0-17.5) gm/dL Hct (39.0-53.0) % MCV (80.0-100.0) fL Plt Count (150-450) k/uL Neutrophils # (1.3-7.7) k/uL Lymphocytes # (1.0-4.8) k/uL APTT (22.0-30.0) sec ABG pH (7.35-7.45) ABG pO2 (83-108) mmHg ABG HCO3 (21-25) mmol/L ABG O2 Saturation (94-97) % Chloride (98-107) mmol/L Carbon Dioxide (22-30) mmol/L BUN (9-20) mg/dL Creatinine (0.66-1.25) mg/dL Glucose (74-99) mg/dL POC Glucose (mg/dL) 197 H 191 H 194 H (75-99) mg/dL 09/11/19 09/11/19 09/11/19 Range/Units 17:20 18:05 19:15 WBC (3.8-10.6) k/uL RBC (4.30-5.90) m/uL Hgb (13.0-17.5) gm/dL Hct (39.0-53.0) % MCV (80.0-100.0) fL Plt Count (150-450) k/uL Neutrophils # (1.3-7.7) k/uL Lymphocytes # (1.0-4.8) k/uL APTT (22.0-30.0) sec ABG pH (7.35-7.45) ABG pO2 (83-108) mmHg ABG HCO3 (21-25) mmol/L ABG O2 Saturation (94-97) % Chloride (98-107) mmol/L Carbon Dioxide (22-30) mmol/L BUN (9-20) mg/dL Creatinine (0.66-1.25) mg/dL Glucose (74-99) mg/dL POC Glucose (mg/dL) 190 H 199 H 194 H (75-99) mg/dL 09/11/19 09/11/19 09/11/19 Range/Units 21:26 22:07 23:56 WBC (3.8-10.6) k/uL RBC (4.30-5.90) m/uL Hgb (13.0-17.5) gm/dL Hct (39.0-53.0) % MCV (80.0-100.0) fL Plt Count (150-450) k/uL Neutrophils # (1.3-7.7) k/uL Lymphocytes # (1.0-4.8) k/uL APTT (22.0-30.0) sec ABG pH (7.35-7.45) ABG pO2 (83-108) mmHg ABG HCO3 (21-25) mmol/L ABG O2 Saturation (94-97) % Chloride (98-107) mmol/L Carbon Dioxide (22-30) mmol/L BUN (9-20) mg/dL Creatinine (0.66-1.25) mg/dL Glucose (74-99) mg/dL POC Glucose (mg/dL) 189 H 204 H 176 H (75-99) mg/dL 09/12/19 09/12/19 09/12/19 Range/Units 02:14 04:40 04:40 WBC 16.3 H (3.8-10.6) k/uL RBC 2.73 L (4.30-5.90) m/uL Hgb 9.4 L (13.0-17.5) gm/dL Hct 28.9 L (39.0-53.0) % MCV 105.6 H (80.0-100.0) fL Plt Count 90 L (150-450) k/uL Neutrophils # 14.8 H (1.3-7.7) k/uL Lymphocytes # 0.6 L (1.0-4.8) k/uL APTT (22.0-30.0) sec ABG pH (7.35-7.45) ABG pO2 (83-108) mmHg ABG HCO3 (21-25) mmol/L ABG O2 Saturation (94-97) % Chloride 108 H (98-107) mmol/L Carbon Dioxide 19 L (22-30) mmol/L BUN 46 H (9-20) mg/dL Creatinine 5.27 H (0.66-1.25) mg/dL Glucose 160 H (74-99) mg/dL POC Glucose (mg/dL) 162 H (75-99) mg/dL 09/12/19 09/12/19 09/12/19 Range/Units 04:40 04:44 05:24 WBC (3.8-10.6) k/uL RBC (4.30-5.90) m/uL Hgb (13.0-17.5) gm/dL Hct (39.0-53.0) % MCV (80.0-100.0) fL Plt Count (150-450) k/uL Neutrophils # (1.3-7.7) k/uL Lymphocytes # (1.0-4.8) k/uL APTT 40.6 H (22.0-30.0) sec ABG pH 7.29 L (7.35-7.45) ABG pO2 149 H (83-108) mmHg ABG HCO3 18 L (21-25) mmol/L ABG O2 Saturation 99.3 H (94-97) % Chloride (98-107) mmol/L Carbon Dioxide (22-30) mmol/L BUN (9-20) mg/dL Creatinine (0.66-1.25) mg/dL Glucose (74-99) mg/dL POC Glucose (mg/dL) 147 H (75-99) mg/dL 09/12/19 09/12/19 09/12/19 Range/Units 06:11 08:05 09:51 WBC (3.8-10.6) k/uL RBC (4.30-5.90) m/uL Hgb (13.0-17.5) gm/dL Hct (39.0-53.0) % MCV (80.0-100.0) fL Plt Count (150-450) k/uL Neutrophils # (1.3-7.7) k/uL Lymphocytes # (1.0-4.8) k/uL APTT (22.0-30.0) sec ABG pH (7.35-7.45) ABG pO2 (83-108) mmHg ABG HCO3 (21-25) mmol/L ABG O2 Saturation (94-97) % Chloride (98-107) mmol/L Carbon Dioxide (22-30) mmol/L BUN (9-20) mg/dL Creatinine (0.66-1.25) mg/dL Glucose (74-99) mg/dL POC Glucose (mg/dL) 190 H 163 H 137 H (75-99) mg/dL Microbiology - Last 24 Hours (Table) 09/12/19 00:13 Sputum Culture - Preliminary Sputum Assessment and Plan Plan: 1 cardiac arrest with prolonged downtime estimated to be around 30 minutes or more. The patient was a PEA. He was resuscitated. He received CPR. Hemodynamically stable. The echo cardiac exam shows a preserved LV function. 2 acute hypoxic respiratory failure secondary to above currently intubated on a mechanical ventilator 3 anoxic encephalopathy and absent brain stem reflexes consistant with clinical brain and the evaluation has not changed compared to yesterday. The patient has no brainstem reflexes. No breathing reflex for now. 4 atrial fibrillation currently in a sinus rhythm and the patient remains on IV heparin, history of coronary artery disease with previous bypass surgery 6 systolic heart failure with a unknown ejection fraction. 7 End stage renal disease on hemodialysis a times a week MWF. The axis in the left upper extremity is no function of this point in time. The patient established a temporary dialysis access in the right femoral vein. The patient underwent hemodialysis yesterday. 8 COPD 9 diabetes mellitus, with elevated blood sugar and the patient will be started on insulin drip 10 obesity with a BMI of 38 11 hypertension 12 hyperlipidemia 13 leukocytosis likely reactive, white cell count is at 26 14 abnormal liver function tests 15 diarrhea, recovered and fecal management system is in place Plan Awaiting a neuro evaluation to confirm the neurologic findings. The patient has neurologic brain . We will do an official apnea test if requested by neurology. Based on my evaluation based on the visitation and comorbidities, the patient has no signs of brainstem functions. The family is inclined hours withdrawing care. Awaiting a neuro evaluation. We'll proceed accordingly. Had a lengthy discussion with the family at the bedside. Possibilities of neurologic recovery is extremely low at this stage. Critically care evaluation done more than 30 minutes. I updated the family and discussed the findings and answered all their questions to their satisfaction is. Time with Patient: Greater than 30
[2019-09-12 11:59] VITALS: PULSE 75
--- NOTE | 2019-09-12 12:26 | P.CNNES ---
History of Present Illness Consult date: 09/12/19 Requesting physician: Ulises Washington Reason for Consult: Cardiac arrest History of Present Illness: Patient is a 74-year-old male with history of ESRD, on hemodialysis admitted with cardiac arrest due to the PEA on 09/09/2019 at 5:08 PM. This was an unwitnessed arrest at home. Patient's was present at the time of this interview, who states that patient went outside to feed the birds. 10 minutes later, he did not return, patient's went outside and saw him unresponsive, fallen on the floor. Patient was last seen well at about 2 PM. EMS was called at 2:10 PM. Patient had return of spontaneous circulation at approximately 2:20 PM. His vitals were stable during transport to the hospital. He did have a second round of PEA arrest just prior to arrival. Total cardiac arrest time was between 30 and 40 minutes. Patient has history of coronary artery disease, status post bypass grafting, history of end-stage renal disease. He had received hemodialysis the day prior to arrival. He was in usual state of health just prior to the cardiac arrest. He has been on hemodialysis since around November 2018. While in the ICU, patient has not showed any clinical response. No seizure-like activity was noted. Patient had an EEG performed, results are mentioned below. Patient currently not on any sedatives. According to the ICU staff, patient's ventilator was turned off for a minute, and there were no signs of spontaneous breathing, as per critical care nurse practitioner. At present patient is de eply comatose as per examination below. Patient's computed tomography scan of head on 09/09/2019 was normal. Most recent chest x-ray showed expiratory noted exam. Possible subsegmental basilar atelectatic changes. Cardiomegaly. 2-D echo showed sinus rhythm, EF 55-60%. Mild concentric LVH. Normal left atrial size. Mild aortic valve sclerosis. EEG from 09/10/2019 showed markedly abnormal EEG. This EEG consisted primarily of diffuse electrical suppression with a rare short low amplitude delta range bursts. These findings are not epileptiform in nature. These findings indicate severe diffuse cerebral dysfunction as may be seen in anoxic or hypoxic encephalopathy. No seizures were recorded. No epileptiform activity was present. Review of Systems ROS unobtainable: due to endotracheal tube, due to mental status Past Medical History Past Medical History: Atrial Fibrillation, Coronary Artery Disease (CAD), Chest Pain / Angina, Heart Failure, COPD, Diabetes Mellitus, Dialysis, Eye Disorder, Hyperlipidemia, Hypertension, Myocardial Infarction (HI), Osteoarthritis (OA), Sleep Apnea/CPAP/BIPAP Additional Past Medical History / Comment(s): Diabetic retinopathy, Neck pain due to arthritis Last Myocardial Infarction Date:: 2004 History of Any Multi-Drug Resistant Organisms: None Reported Past Surgical History: Coronary Bypass/CABG, Orthopedic Surgery Additional Past Surgical History / Comment(s): graft in the LUE, lower spine surgery (late ) Additional Past Anesthesia/Blood Transfusion Reaction / Comment(s): Unknown if pt has had any transfusion in the past Past Psychological History: No Psychological Hx Reported Smoking Status: Never smoker Past Alcohol Use History: None Reported Medications and Allergies Home Medications Medication Instructions Recorded Confirmed Type Atorvastatin [Lipitor] 80 mg PO HS 09/10/19 09/10/19 History Bumetanide 2 mg PO DIRECTED 09/10/19 09/10/19 History Insulin NPL/Insulin Lispro 97 unit SQ DAILY 09/10/19 09/10/19 History [humaLOG MIX 75-25 VIAL] Isosorbide Mononitrate ER [Imdur] 60 mg PO DAILY 09/10/19 09/10/19 History Losartan Potassium [Cozaar] 12.5 mg PO DAILY 09/10/19 09/10/19 History Metoprolol Tartrate [Lopressor] 25 mg PO BID 09/10/19 09/10/19 History Rosuvastatin [Crestor] 20 mg PO DAILY 09/10/19 09/10/19 History Sevelamer Carbonate 800 mg PO TID 09/10/19 09/10/19 History Tamsulosin HCl [Flomax] 0.4 mg PO HS 09/10/19 09/10/19 History Acetaminophen/Diphenhydramine 1 tab PO HS 09/12/19 09/12/19 History [Tylenol Pm Ex-Strength Caplet] Albuterol Nebulized [Ventolin 2.5 mg INHALATION RT-Q4H PRN 09/12/19 09/12/19 History Nebulized] Albuterol Sulfate [Proair Hfa] 2 puff INHALATION RT-Q6H PRN 09/12/19 09/12/19 History Aspirin EC [Ecotrin Low Dose] 81 mg PO DAILY 09/12/19 09/12/19 History Budesonide-Formot 160-4.5 Mcg 2 puff INHALATION RT-BID 09/12/19 09/12/19 History [Symbicort 160-4.5 Mcg Inhaler] Folic Acid 0.8 mg PO DAILY 09/12/19 09/12/19 History Nitroglycerin Sl Tabs [Nitrostat] 0.4 mg SUBLINGUAL Q5M PRN 09/12/19 09/12/19 History Katty-Vit 1 tab PO DAILY 09/12/19 09/12/19 History Allergies Allergy/AdvReac Type Severity Reaction Status Date / Time No Known Allergies Allergy Verified 09/11/19 07:32 Physical Examination - Vital Signs Vital Signs: Vital Signs Temp Pulse Resp BP Pulse Ox 09/12/19 11:21 73 09/12/19 10:00 70 14 120/47 99 09/12/19 09:00 71 14 124/50 99 09/12/19 08:20 78 09/12/19 08:00 98 F 72 14 120/50 99 09/12/19 07:33 76 09/12/19 07:00 79 14 123/48 99 09/12/19 06:00 84 4 L 111/44 99 09/12/19 05:00 81 14 114/46 99 09/12/19 04:34 79 09/12/19 04:26 80 09/12/19 04:00 97.8 F 82 14 114/49 99 09/12/19 03:00 83 14 115/47 97 09/12/19 02:00 82 14 128/51 97 09/12/19 01:00 71 14 126/53 99 09/12/19 00:26 69 09/12/19 00:11 73 09/12/19 00:00 97.2 F L 75 14 125/54 99 09/11/19 23:00 80 14 131/55 99 09/11/19 22:00 78 14 139/62 99 09/11/19 21:42 73 09/11/19 21:32 73 09/11/19 21:00 77 14 143/64 99 09/11/19 20:00 96.8 F L 73 14 141/62 99 09/11/19 19:00 83 14 141/61 99 09/11/19 18:00 83 14 139/63 99 09/11/19 17:00 85 14 146/61 98 09/11/19 16:00 96.2 F L 84 14 142/62 99 09/11/19 15:46 86 09/11/19 15:21 85 09/11/19 15:00 87 14 132/58 99 09/11/19 14:00 81 14 138/57 98 09/11/19 13:00 84 14 142/66 98 09/11/19 12:00 97.2 F L 82 14 134/65 99 09/11/19 11:50 76 Intake and Output 09/11/19 09/12/19 09/12/19 22:59 06:59 14:59 Intake Total 633.732 644.119 218.736 Output Total 0 0 0 Balance 633.732 644.119 218.736 Intake: IV 575 450 200 Piperacillin-Tazobactam 3 75 50 .375 gm In Sodium Chloride 0.9% 100 ml @ 25 mls/hr IVPB Q12H [facility] Rx# :[id number] Sodium Chloride 0.9% 1, 500 400 200 000 ml @ 50 mls/hr IV . Q20H [facility] Rx#:[id number] Intake, IV Titration 58.732 194.119 18.736 Amount Heparin Sod,Pork in 0.45% 0 119.169 NaCl 25,000 unit In 0.45 % NaCl 1 250ml.bag @ 8.82 UNITS/KG/HR 10.002 mls/ hr IV .Q24H [facility] Rx#: [id number] Insulin Regular 100 unit 58.732 74.950 18.736 In Sodium Chloride 0.9% 100 ml @ Per Protocol IV .Q0M [facility] Rx#:[id number] Output: Urine 0 0 0 Uretheral (Armendariz) 0 0 Other: Voiding Method Indwelling Catheter Indwelling Catheter Indwelling Catheter Weight 112.2 kg On examination patient is an elderly male, who is deeply comatose, on mechanical ventilation, not responding to verbal or noxious stimuli. Patient not breathing over the ventilator. No gag or cough. Pupils are between 4-5 mm, nonreactive. Oculocephalics absent. Corneals absent. Tone is decreased. Reflexes are 1+ in the upper limbs, absent in the lower limbs and plantars are flat. No clonus. No convulsive activity is noted over the facial region, or extremities. Results - Laboratory Findings CBC and BMP: 09/12/19 04:40 09/12/19 04:40 Abnormal Lab Findings: Abnormal Labs 09/09/19 09/09/19 09/09/19 17:28 17:36 17:36 WBC 20.0 H RBC 3.26 L Hgb 11.3 L Hct 35.1 L MCV 107.5 H Plt Count Neutrophils # 14.4 H Lymphocytes # APTT ABG pH ABG pCO2 ABG pO2 ABG HCO3 ABG Total CO2 ABG O2 Saturation Sodium 136 L Potassium 5.3 H Chloride Carbon Dioxide 18 L BUN 43 H Creatinine 5.04 H Glucose 297 H POC Glucose (mg/dL) 278 H Plasma Lactic Acid Leno Magnesium 3.0 H AST 279 H ALT 235 H Alkaline Phosphatase 150 H Troponin I Total Protein 5.8 L Albumin 3.4 L 09/09/19 09/09/19 09/09/19 17:36 17:56 21:03 WBC RBC Hgb Hct MCV Plt Count Neutrophils # Lymphocytes # APTT ABG pH 7.29 L ABG pCO2 ABG pO2 347 H ABG HCO3 19 L ABG Total CO2 ABG O2 Saturation 100.0 H Sodium Potassium Chloride Carbon Dioxide BUN Creatinine Glucose POC Glucose (mg/dL) 221 H Plasma Lactic Acid Leno Magnesium AST ALT Alkaline Phosphatase Troponin I 0.075 H* Total Protein Albumin 09/09/19 09/10/19 09/10/19 21:46 01:50 02:20 WBC RBC Hgb Hct MCV Plt Count Neutrophils # Lymphocytes # APTT ABG pH ABG pCO2 ABG pO2 ABG HCO3 ABG Total CO2 ABG O2 Saturation Sodium Potassium Chloride Carbon Dioxide BUN Creatinine Glucose POC Glucose (mg/dL) Plasma Lactic Acid Leno 5.2 H* 8.0 H* Magnesium AST ALT Alkaline Phosphatase Troponin I 3.520 H* Total Protein Albumin 09/10/19 09/10/19 09/10/19 03:50 04:03 04:32 WBC 26.8 H RBC 3.41 L Hgb 11.6 L Hct 35.5 L MCV 103.9 H Plt Count Neutrophils # Lymphocytes # APTT ABG pH ABG pCO2 ABG pO2 ABG HCO3 ABG Total CO2 ABG O2 Saturation Sodium Potassium Chloride Carbon Dioxide BUN Creatinine Glucose POC Glucose (mg/dL) 288 H Plasma Lactic Acid Leno Magnesium AST 295 H ALT 231 H Alkaline Phosphatase Troponin I Total Protein Albumin 09/10/19 09/10/19 09/10/19 04:32 05:04 05:20 WBC RBC Hgb Hct MCV Plt Count Neutrophils # Lymphocytes # APTT >200.0 H* ABG pH ABG pCO2 27 L ABG pO2 143 H ABG HCO3 17 L ABG Total CO2 18 L ABG O2 Saturation 99.8 H Sodium 135 L Potassium 5.7 H Chloride Carbon Dioxide 16 L BUN 51 H Creatinine 5.06 H Glucose 296 H POC Glucose (mg/dL) Plasma Lactic Acid Leno Magnesium AST ALT Alkaline Phosphatase Troponin I Total Protein Albumin 09/10/19 09/10/19 09/10/19 06:13 08:10 11:58 WBC RBC Hgb Hct MCV Plt Count Neutrophils # Lymphocytes # APTT ABG pH ABG pCO2 ABG pO2 ABG HCO3 ABG Total CO2 ABG O2 Saturation Sodium Potassium Chloride Carbon Dioxide BUN Creatinine Glucose POC Glucose (mg/dL) 422 H 350 H Plasma Lactic Acid Leno 6.0 H* Magnesium AST ALT Alkaline Phosphatase Troponin I Total Protein Albumin 09/10/19 09/10/19 09/10/19 13:24 13:59 14:50 WBC RBC Hgb Hct MCV Plt Count Neutrophils # Lymphocytes # APTT ABG pH ABG pCO2 ABG pO2 ABG HCO3 ABG Total CO2 ABG O2 Saturation Sodium Potassium Chloride Carbon Dioxide BUN Creatinine Glucose POC Glucose (mg/dL) 190 H 152 H 118 H Plasma Lactic Acid Leno Magnesium AST ALT Alkaline Phosphatase Troponin I Total Protein Albumin 09/10/19 09/10/19 09/10/19 15:50 16:54 18:04 WBC RBC Hgb Hct MCV Plt Count Neutrophils # Lymphocytes # APTT ABG pH ABG pCO2 ABG pO2 ABG HCO3 ABG Total CO2 ABG O2 Saturation Sodium Potassium Chloride Carbon Dioxide BUN Creatinine Glucose POC Glucose (mg/dL) 145 H 181 H 215 H Plasma Lactic Acid Leno Magnesium AST ALT Alkaline Phosphatase Troponin I Total Protein Albumin 09/10/19 09/10/19 09/10/19 18:56 18:57 19:53 WBC RBC Hgb Hct MCV Plt Count Neutrophils # Lymphocytes # APTT 50.9 H ABG pH ABG pCO2 ABG pO2 ABG HCO3 ABG Total CO2 ABG O2 Saturation Sodium Potassium Chloride Carbon Dioxide BUN Creatinine Glucose POC Glucose (mg/dL) 173 H 177 H Plasma Lactic Acid Leno Magnesium AST ALT Alkaline Phosphatase Troponin I Total Protein Albumin 09/10/19 09/10/19 09/10/19 20:57 21:58 22:56 WBC RBC Hgb Hct MCV Plt Count Neutrophils # Lymphocytes # APTT ABG pH ABG pCO2 ABG pO2 ABG HCO3 ABG Total CO2 ABG O2 Saturation Sodium Potassium Chloride Carbon Dioxide BUN Creatinine Glucose POC Glucose (mg/dL) 183 H 180 H 167 H Plasma Lactic Acid Leno Magnesium AST ALT Alkaline Phosphatase Troponin I Total Protein Albumin 09/10/19 09/11/19 09/11/19 23:54 01:08 01:54 WBC RBC Hgb Hct MCV Plt Count Neutrophils # Lymphocytes # APTT ABG pH ABG pCO2 ABG pO2 ABG HCO3 ABG Total CO2 ABG O2 Saturation Sodium Potassium Chloride Carbon Dioxide BUN Creatinine Glucose POC Glucose (mg/dL) 171 H 187 H 175 H Plasma Lactic Acid Leno Magnesium AST ALT Alkaline Phosphatase Troponin I Total Protein Albumin 09/11/19 09/11/19 09/11/19 04:01 04:31 04:31 WBC 16.8 H RBC 3.07 L Hgb 10.6 L Hct 31.4 L MCV 102.3 H Plt Count 102 L Neutrophils # Lymphocytes # APTT 34.8 H ABG pH ABG pCO2 ABG pO2 ABG HCO3 ABG Total CO2 ABG O2 Saturation Sodium Potassium Chloride Carbon Dioxide BUN Creatinine Glucose POC Glucose (mg/dL) 191 H Plasma Lactic Acid Leno Magnesium AST ALT Alkaline Phosphatase Troponin I Total Protein Albumin 09/11/19 09/11/19 09/11/19 04:31 05:11 05:18 WBC RBC Hgb Hct MCV Plt Count Neutrophils # Lymphocytes # APTT ABG pH 7.53 H ABG pCO2 22 L ABG pO2 183 H ABG HCO3 18 L ABG Total CO2 ABG O2 Saturation 99.8 H Sodium 134 L Potassium Chloride Carbon Dioxide 17 L BUN 39 H Creatinine 4.22 H Glucose 188 H POC Glucose (mg/dL) 208 H Plasma Lactic Acid Leno Magnesium AST ALT Alkaline Phosphatase Troponin I Total Protein Albumin 09/11/19 09/11/19 09/11/19 06:01 06:46 07:52 WBC RBC Hgb Hct MCV Plt Count Neutrophils # Lymphocytes # APTT ABG pH ABG pCO2 ABG pO2 ABG HCO3 ABG Total CO2 ABG O2 Saturation Sodium Potassium Chloride Carbon Dioxide BUN Creatinine Glucose POC Glucose (mg/dL) 183 H 175 H 179 H Plasma Lactic Acid Leno Magnesium AST ALT Alkaline Phosphatase Troponin I Total Protein Albumin 09/11/19 09/11/19 09/11/19 09:07 10:07 11:08 WBC RBC Hgb Hct MCV Plt Count Neutrophils # Lymphocytes # APTT ABG pH ABG pCO2 ABG pO2 ABG HCO3 ABG Total CO2 ABG O2 Saturation Sodium Potassium Chloride Carbon Dioxide BUN Creatinine Glucose POC Glucose (mg/dL) 187 H 212 H 192 H Plasma Lactic Acid Leno Magnesium AST ALT Alkaline Phosphatase Troponin I Total Protein Albumin 09/11/19 09/11/19 09/11/19 12:10 12:10 13:24 WBC RBC Hgb Hct MCV Plt Count Neutrophils # Lymphocytes # APTT 92.4 H ABG pH ABG pCO2 ABG pO2 ABG HCO3 ABG Total CO2 ABG O2 Saturation Sodium Potassium Chloride Carbon Dioxide BUN Creatinine Glucose POC Glucose (mg/dL) 184 H 203 H Plasma Lactic Acid Leno Magnesium AST ALT Alkaline Phosphatase Troponin I Total Protein Albumin 09/11/19 09/11/19 09/11/19 14:29 15:23 16:20 WBC RBC Hgb Hct MCV Plt Count Neutrophils # Lymphocytes # APTT ABG pH ABG pCO2 ABG pO2 ABG HCO3 ABG Total CO2 ABG O2 Saturation Sodium Potassium Chloride Carbon Dioxide BUN Creatinine Glucose POC Glucose (mg/dL) 197 H 191 H 194 H Plasma Lactic Acid Leno Magnesium AST ALT Alkaline Phosphatase Troponin I Total Protein Albumin 09/11/19 09/11/19 09/11/19 17:20 18:05 19:15 WBC RBC Hgb Hct MCV Plt Count Neutrophils # Lymphocytes # APTT ABG pH ABG pCO2 ABG pO2 ABG HCO3 ABG Total CO2 ABG O2 Saturation Sodium Potassium Chloride Carbon Dioxide BUN Creatinine Glucose POC Glucose (mg/dL) 190 H 199 H 194 H Plasma Lactic Acid Leno Magnesium AST ALT Alkaline Phosphatase Troponin I Total Protein Albumin 09/11/19 09/11/19 09/11/19 21:26 22:07 23:56 WBC RBC Hgb Hct MCV Plt Count Neutrophils # Lymphocytes # APTT ABG pH ABG pCO2 ABG pO2 ABG HCO3 ABG Total CO2 ABG O2 Saturation Sodium Potassium Chloride Carbon Dioxide BUN Creatinine Glucose POC Glucose (mg/dL) 189 H 204 H 176 H Plasma Lactic Acid Leno Magnesium AST ALT Alkaline Phosphatase Troponin I Total Protein Albumin 09/12/19 09/12/19 09/12/19 02:14 04:40 04:40 WBC 16.3 H RBC 2.73 L Hgb 9.4 L Hct 28.9 L MCV 105.6 H Plt Count 90 L Neutrophils # 14.8 H Lymphocytes # 0.6 L APTT ABG pH ABG pCO2 ABG pO2 ABG HCO3 ABG Total CO2 ABG O2 Saturation Sodium Potassium Chloride 108 H Carbon Dioxide 19 L BUN 46 H Creatinine 5.27 H Glucose 160 H POC Glucose (mg/dL) 162 H Plasma Lactic Acid Leno Magnesium AST ALT Alkaline Phosphatase Troponin I Total Protein Albumin 09/12/19 09/12/19 09/12/19 04:40 04:44 05:24 WBC RBC Hgb Hct MCV Plt Count Neutrophils # Lymphocytes # APTT 40.6 H ABG pH 7.29 L ABG pCO2 ABG pO2 149 H ABG HCO3 18 L ABG Total CO2 ABG O2 Saturation 99.3 H Sodium Potassium Chloride Carbon Dioxide BUN Creatinine Glucose POC Glucose (mg/dL) 147 H Plasma Lactic Acid Leno Magnesium AST ALT Alkaline Phosphatase Troponin I Total Protein Albumin 09/12/19 09/12/19 09/12/19 06:11 08:05 09:51 WBC RBC Hgb Hct MCV Plt Count Neutrophils # Lymphocytes # APTT ABG pH ABG pCO2 ABG pO2 ABG HCO3 ABG Total CO2 ABG O2 Saturation Sodium Potassium Chloride Carbon Dioxide BUN Creatinine Glucose POC Glucose (mg/dL) 190 H 163 H 137 H Plasma Lactic Acid Leno Magnesium AST ALT Alkaline Phosphatase Troponin I Total Protein Albumin Assessment and Plan Assessment: * 74-year-old male admitted with cardiac arrest with severe anoxic encephalopa thy. Patient is almost 68 hours post cardiac arrest, not showing signs of clinical reactivity. Patient has no brainstem reflexes present at this time, with pupils dilated fixed. It does appear evidence of possible brain . Patient has some preserved deep tendon reflexes in the upper limbs, which could be evoked at spinal level. * ESRD, on hemodialysis * Diabetes * CAD Plan: * Overall prognosis for meaningful recovery appears extremely poor. * Suggest terminal weaning and comfort care. * May consider apnea test, if cerebral need to be further documented. * Discussed with patient's in detail and answered her questions. * Please call neurology if any further concerns.
--- NOTE | 2019-09-12 12:36 | CDI ---
Documentation Clarification Form Date: 09/12/2019 12:10:35 PM From: Violet Smallwood RN, CCDS Admit Date: 09/09/2019 05:41:00 PM Patient Name: Sivakumar Mayes Visit Number: [id number] Discharge Date: ATTENTION: The Clinical Documentation Specialists (CDI) and [facility] Coding Staff appreciate your assistance in clarifying documentation. Please respond to the clarification below the line at the bottom and electronically sign. The CDI & [facility] Coding staff will review the response and follow-up if needed. Please note: Queries are made part of the Legal Health Record. If you have any questions, please contact the author of this message via ITS. Dr. Christina Duong Congestive heart failure compensated is documented on 09/10 and subsequent progress notes and further clarification is needed. History/Risk Factors: Coronary artery disease, ESRD on HD, Clinical Indicators: 74-year-old male who presented via EMS after episodes of cardiac arrest and was intubated by EMS. 09/08 at 17:08 VS/Pulse OX: 130/70 76 18 Mechanical vent BNP: 8830 Echocardiogram Results: EF 55-60 % Chest X Ray: 09/08 No active cardiopulmonary disease; 09/09 CXR: Improved inspiration and left hilar opacity. Persistent cardiomegaly with small right pleural effusion and patchy right medial basilar acute atelectasis and/or infiltrate. Treatment: Fluid management with HD In your professional opinion, can you please clarify the acuity and type of CHF if known? Diastolic Heart Failure: Acute Chronic Acute on Chronic Unable to Determine Other, please specify (Last Revision: October 2017) Chronic diastolic CHF MTDD
--- NOTE | 2019-09-12 15:28 | P.DS ---
Providers Date of admission: 09/09/19 17:41 Expected date of discharge: 09/12/19 Attending physician: Christina Duong DO Consults: 09/09/19 17:38 Consult Physician Stat Consulting Provider: Ulises Washington Consult Reason/Comments: ICU patient Do you want consulting provider notified?: Already Contacted 09/09/19 17:40 Consult Physician Routine Consulting Provider: Lili Baker Consult Reason/Comments: End-stage renal disease Do you want consulting provider notified?: Yes 09/09/19 21:52 Consult Physician Stat Consulting Provider: Dannie Gramajo Consult Reason/Comments: Cardiac arrest Do you want consulting provider notified?: Yes 09/10/19 08:40 Consult Physician Routine Consulting Provider: Brenda Scott Consult Reason/Comments: cardiac arrest mental status Do you want consulting provider notified?: Yes 09/10/19 08:44 Consult Physician Routine Consulting Provider: Ken Castro Consult Reason/Comments: Temporary dialysis catheter Do you want consulting provider notified?: Yes Primary care physician: [facility] Course: 74-year-old male patient was last seen by his this afternoon at around 1400 feeding the birds, after about 10-15 minutes she noticed that he was down. She called EMS. The initial downtime was estimated to be around 15 minutes when EMS came in and CPR was initiated. With CPR pulse returned, patient maintained his pulse for around 30 minutes then en route, he lost pulse again for another 10 minutes and ultimately arrived to our emergency department. When evaluated he was completely unresponsive. He was intubated and was on a mechanical ventilator. He was maintaining his blood pressure without any pressors. Lab eval revealed white cell count of 20.0. Hemoglobin was 11.3. The sodium is 136 and a potassium level of 5.3. Serum bicarb is 18. BUN is 43 with a creatinine of 5.04. Glucose for now is to do 97. AST is 279 ALT is 235 troponin is a 0.075 with a proBNP level of 8830. . Chest x-ray showed cardiomegaly without any acute abnormalities. EKG shows atrial fibrillation with occasional PVCs. His rate was in the mid 70s. Upon admission to the ICU Nephrology and neurology were consulted. On the morning of 09/09 he developed low blood pressure requiring a norepinephrine drip, he also was having some head movements. He did not have any further arrhythmias after admission. He did have HD on 09/10/19. Patient's computed tomography scan of head on 09/09/2019 was normal. 2-D echo showed sinus rhythm, EF 55-60%. Mild concentric LVH. Normal left atrial size. Mild aortic valve sclerosis. EEG from 09/10/2019 showed markedly abnormal EEG. This EEG consisted primarily of diffuse electrical suppression with a rare short low amplitude delta range bursts. These findings are not epileptiform in nature. These findings indicate severe diffuse cerebral dysfunction as may be seen in anoxic or hypoxic encephalopathy. No seizures were recorded. My exam today revealed absent brain stem reflexes likely consistent with brain . This was communicated with the family who elected to switch him to comfort care. He passed this pm around 1304. Patient Condition at Discharge: Critical Plan - Discharge Summary Discharge Rx Participant: Yes New Discharge Prescriptions: No Action Atorvastatin [Lipitor] 80 mg PO HS Metoprolol Tartrate [Lopressor] 25 mg PO BID Isosorbide Mononitrate ER [Imdur] 60 mg PO DAILY Insulin NPL/Insulin Lispro [humaLOG MIX 75-25 VIAL] 97 unit SQ DAILY Tamsulosin HCl [Flomax] 0.4 mg PO HS Sevelamer Carbonate 800 mg PO TID Rosuvastatin [Crestor] 20 mg PO DAILY Losartan Potassium [Cozaar] 12.5 mg PO DAILY Bumetanide 2 mg PO DIRECTED Nitroglycerin Sl Tabs [Nitrostat] 0.4 mg SUBLINGUAL Q5M PRN PRN Reason: Chest Pain Albuterol Sulfate [Proair Hfa] 2 puff INHALATION RT-Q6H PRN PRN Reason: Shortness Of Breath Katty-Vit 1 tab PO DAILY Acetaminophen/Diphenhydramine [Tylenol Pm Ex-Strength Caplet] 1 tab PO HS Folic Acid 0.8 mg PO DAILY Budesonide-Formot 160-4.5 Mcg [Symbicort 160-4.5 Mcg Inhaler] 2 puff INHALATION RT-BID Aspirin EC [Ecotrin Low Dose] 81 mg PO DAILY Albuterol Nebulized [Ventolin Nebulized] 2.5 mg INHALATION RT-Q4H PRN PRN Reason: Shortness Of Breath Discharge Medication List Atorvastatin [Lipitor] 80 mg PO HS 09/10/19 [History] Bumetanide 2 mg PO DIRECTED 09/10/19 [History] Insulin NPL/Insulin Lispro [humaLOG MIX 75-25 VIAL] 97 unit SQ DAILY 09/10/19 [History] Isosorbide Mononitrate ER [Imdur] 60 mg PO DAILY 09/10/19 [History] Losartan Potassium [Cozaar] 12.5 mg PO DAILY 09/10/19 [History] Metoprolol Tartrate [Lopressor] 25 mg PO BID 09/10/19 [History] Rosuvastatin [Crestor] 20 mg PO DAILY 09/10/19 [History] Sevelamer Carbonate 800 mg PO TID 09/10/19 [History] Tamsulosin HCl [Flomax] 0.4 mg PO HS 09/10/19 [History] Acetaminophen/Diphenhydramine [Tylenol Pm Ex-Strength Caplet] 1 tab PO HS 09/12/19 [History] Albuterol Nebulized [Ventolin Nebulized] 2.5 mg INHALATION RT-Q4H PRN 09/12/19 [History] Albuterol Sulfate [Proair Hfa] 2 puff INHALATION RT-Q6H PRN 09/12/19 [History] Aspirin EC [Ecotrin Low Dose] 81 mg PO DAILY 09/12/19 [History] Budesonide-Formot 160-4.5 Mcg [Symbicort 160-4.5 Mcg Inhaler] 2 puff INHALATION RT-BID 09/12/19 [History] Folic Acid 0.8 mg PO DAILY 09/12/19 [History] Nitroglycerin Sl Tabs [Nitrostat] 0.4 mg SUBLINGUAL Q5M PRN 09/12/19 [History] Katty-Vit 1 tab PO DAILY 09/12/19 [History] Follow up Appointment(s)/Referral(s): Mohsen Pearson MD [Primary Care Provider] - 1-2 days
--- NOTE | 2019-09-20 12:07 | P.PCN ---
Date of Procedure: 09/09/19 Preoperative Diagnosis: cardiac arrest Postoperative Diagnosis: same Procedure(s) Performed: central line insertion Anesthesia: local Surgeon: Ulises Washington Pathology: other Condition: critical Disposition: ICU Operative Findings: sIndication: Hemodynamic monitoring/Intravenous access. A time-out was completed verifying correct patient, procedure, site, positioning, and implant(s) or special equipment if applicable. The patient was placed in a dependent position appropriate for central line plac ement based on the vein to be cannulated. The patient right shoulder was prepped and draped in sterile fashion. 1% Lidocaine was used to anesthetize the surrounding skin area. A triple lumen 9F Cordis catheter was introduced into the subclavian vein using Seldinger technique. The catheter was threaded smoothly over the guide wire and appropriate blood return was obtained. Each lumen of the catheter was evacuated of air and flushed with sterile saline. The catheter was then sutured in place to the skin and a sterile dressing applied. Perfusion to the extremity distal to the point of catheter insertion was checked and found to be adequate. The patient tolerated the procedure well and there were no complications.
== END 2019-09-12 13:05 | disposition expired | DRG 296 ==
LOC: EC 17:08 → 2SICU 17:41
PROVIDERS: ADMIT Internal Medicine; ATTEND Internal Medicine
PROC: 5A1945Z Respiratory Ventilation, 24-96 Consecutive Hours (ICD-10-PCS; principal; 2019-09-09)
PROC: 0D9670Z Drainage of Stomach with Drainage Device, Via Natural or Artificial Opening (ICD-10-PCS; 2019-09-09)
PROC: 02H633Z Insertion of Infusion Device into Right Atrium, Percutaneous Approach (ICD-10-PCS; 2019-09-09)
PROC: 06HY33Z Insertion of Infusion Device into Lower Vein, Percutaneous Approach (ICD-10-PCS; 2019-09-10)
PROC: 5A1D70Z Performance of Urinary Filtration, Intermittent, Less than 6 Hours Per Day (ICD-10-PCS; 2019-09-10)
DX: I46.9 Cardiac arrest, cause unspecified (principal); J96.01 Acute respiratory failure with hypoxia; K72.00 Acute and subacute hepatic failure without coma; N18.6 End stage renal disease; R40.2311 Coma scale, best motor response, none, in the field [EMT or ambulance]; R40.2111 Coma scale, eyes open, never, in the field [EMT or ambulance]; R40.2211 Coma scale, best verbal response, none, in the field [EMT or ambulance]; R40.2114 Coma scale, eyes open, never, 24 hours or more after hospital admission; N17.9 Acute kidney failure, unspecified; I13.2 Hypertensive heart and chronic kidney disease with heart failure and with stage 5 chronic kidney disease, or end stage renal disease; G93.1 Anoxic brain damage, not elsewhere classified; I42.9 Cardiomyopathy, unspecified; E87.2 Acidosis; T82.898A Other specified complication of vascular prosthetic devices, implants and grafts, initial encounter; Z99.11 Dependence on respirator [ventilator] status; I50.32 Chronic diastolic (congestive) heart failure; Z51.5 Encounter for palliative care; T68.XXXA Hypothermia, initial encounter; E11.319 Type 2 diabetes mellitus with unspecified diabetic retinopathy without macular edema; J44.9 Chronic obstructive pulmonary disease, unspecified; E11.22 Type 2 diabetes mellitus with diabetic chronic kidney disease; I35.8 Other nonrheumatic aortic valve disorders; R40.2334 Coma scale, best motor response, abnormal flexion, 24 hours or more after hospital admission; I48.0 Paroxysmal atrial fibrillation; I45.2 Bifascicular block; E87.5 Hyperkalemia; G47.30 Sleep apnea, unspecified; D72.829 Elevated white blood cell count, unspecified; F43.9 Reaction to severe stress, unspecified; E78.5 Hyperlipidemia, unspecified; E11.65 Type 2 diabetes mellitus with hyperglycemia; I44.0 Atrioventricular block, first degree; I25.10 Atherosclerotic heart disease of native coronary artery without angina pectoris; I25.2 Old myocardial infarction; M47.812 Spondylosis without myelopathy or radiculopathy, cervical region; M54.2 Cervicalgia; M19.90 Unspecified osteoarthritis, unspecified site; R79.89 Other specified abnormal findings of blood chemistry; R19.7 Diarrhea, unspecified; E66.9 Obesity, unspecified; Z68.37 Body mass index [BMI] 37.0-37.9, adult; Z79.82 Long term (current) use of aspirin; Z79.51 Long term (current) use of inhaled steroids; Z79.4 Long term (current) use of insulin; Z79.899 Other long term (current) drug therapy; Z99.2 Dependence on renal dialysis; Z95.1 Presence of aortocoronary bypass graft; Z99.89 Dependence on other enabling machines and devices; Y83.2 Surgical operation with anastomosis, bypass or graft as the cause of abnormal reaction of the patient, or of later complication, without mention of misadventure at the time of the procedure
CPT/HCPCS: 36415; 36556; 36600; 70450; 71045; 80048; 80053; 80202; 82247; 82805; 83605; 83735; 83880; 84450; 84460; 84484; 85025; 85027; 85610; 85730; 87070; 87077; 87186; 87205; 93005; 93306; 94002; 94003; 94640; 95816; 96374; 99291